=== PATIENT | male | born 1980 | race Caucasian/White ===

== ENCOUNTER 2016-08-05 09:18 | Inpatient (IN) | payer MEDICARE, OTHER ==
[2016-08-05] VITALS (11 sets, daily range): BP systolic 112–175; BP diastolic 55–83; PULSE 75–88; RESP 18–19; TEMP 98.4; Ht 180.3 cm; Wt 98.0 kg
[~2016-08-05] VITALS: Ht 180.3 cm; Wt 98.0 kg
[~2016-08-05 09:18] MED LIST: ASPI-664 PO; CARV25TA79 PO; ICNCLON PO; LACT1CAP57 PO; LANT3I SC; LORA1TAB PO; MULT-552 PO; NIFE60TA36 PO; NOV SC; SERT50TA PO; SEVE800T7 PO; SMV40T PO
[2016-08-05] MEDS ORDERED: ONDANSETRON 4 MG INJ IV STA (09:54)
[2016-08-05] MEDS ORDERED: morphine 4 MG/ML VIAL IV STA ×2 (09:54→12:20)
--- NOTE | 2016-08-05 10:15 | RADRPT ---
PROCEDURE: XR Chest. CLINICAL INDICATION: Abdominal Pain TECHNIQUE: Single frontal view of the chest was obtained. COMPARISON: Chest x-ray from 04/12/2015 FINDINGS: There is mild cardiomegaly and low lung volumes with prominence of interstitial markings, likely due to a combination of mild congestive changes and vascular crowding. There are patchy opacities at the left lung base laterally which may be due to subsegmental atelecta sis versus infiltrate. There is no significant pleural effusion or pneumothorax. IMPRESSION: Patchy opacity of the left lung base due to subsegmental atelectasis versus infiltrate. Mild cardiomegaly and low lung volumes with prominence of interstitial markings, likely due to mild congestive changes and vascular crowding. RPTAT: EE Physician Leah Date Time Electronically viewed and signed by Physician Leah on 08/05/2016 10:15 RA/
--- NOTE | 2016-08-05 10:39 | RADRPT ---
PROCEDURE: US Abdomen. CLINICAL INDICATION: abdominal pain TECHNIQUE: Multiple real-time images were acquired of the patient's right upper quadrant abdomen a nd retroperitoneum utilizing a high resolution transducer. COMPARISON: None FINDINGS: The liver demonstrates normal echogenicity. The liver is normal in size and no focal solid lesions are seen. The liver measures 16.1 cm in length. The portal vein is patent with normal direction of f low. No intrahepatic biliary dilatation is seen. Multiple small calcified gallstones are identified within the gallbladder. There is no pericholecys tic fluid . There is evidence of gallbladder wall thickening, measuring 8 mm. The common bile duct measures 7 mm in maximal dimension. The pancreas is not seen due to overlying bowel gas. No free fluid is identified. There is increased echogenicity of the right kidney with cortical thinning. The right kidney measur es 10.7 cm in long dimension. There is no evidence of hydronephrosis. There are no kidney stones. RPTAT: AA IMPRESSION: Multiple calcified stones within the gallbladder with evidence of gallbladder wall thickening. No e vidence of pericholecystic fluid. Atrophic right kidney. Pancreas not seen due to overlying bowel gas. .Louis Oliveira MD, Date Time Electronically viewed and signed by .Louis Oliveira MD, on 08/05/2016 10:38 .S/
[2016-08-05 10:52] LABS: ADD SCAN DIFF NO
[2016-08-05 10:57] LABS: BASOPHILS % 0.1 % (0.0-2.0); EOSINOPHILS # 0.1 10^3/ul (0.0-0.5); EOSINOPHILS % 0.6 % (0.0-7.0); HEMATOCRIT 34.8 % (42.0-52.0); HEMOGLOBIN 11.7 g/dl (14.0-18.0); LYMPHOCYTES # 1.2 10^3/ul (0.8-2.9); LYMPHOCYTES % 9.2 % (15.0-51.0); MEAN CORPUSCULAR HEMOGLOBIN 31.6 pg (29.0-33.0); MEAN CORPUSCULAR HGB CONC 33.6 g/dl (32.0-37.0); MEAN CORPUSCULAR VOLUME 94.1 fl (82.0-101.0); MEAN PLATELET VOLUME 10.7 fl (7.4-10.4); MONOCYTE # 1.3 10^3/ul (0.3-0.9); NEUTROPHIL # 10.2 10^3/ul (1.6-7.5); NEUTROPHILS % 79.6 % (39.0-77.0); PLATELET COUNT 193 10^3/UL (140-415); RED CELL DISTRIBUTION WIDTH 17.6 % (11.5-14.5); WHITE BLOOD COUNT 12.8 10^3/ul (4.8-10.8)
[2016-08-05] MEDS ORDERED: LORA-444 PO (10:58)
[2016-08-05] MEDS ORDERED: OMEP20CA16 PO (10:58)
[2016-08-05] MEDS ORDERED: NIFE60TA36 PO (10:59)
[2016-08-05 11:05] LABS: ALBUMIN 4.2 g/dl (3.3-4.9)
[2016-08-05 11:06] LABS: POTASSIUM 5.1 mmol/L (3.5-5.1)
[2016-08-05 11:08] LABS: ALBUMIN/GLOBULIN RATIO 0.84; BILIRUBIN,INDIRECT 0.2 mg/dl (0-1.1); BILIRUBIN,TOTAL 0.2 mg/dl (0.2-1.3); CREATININE 10.52 mg/dl (0.61-1.24); TOTAL PROTEIN 9.2 g/dl (6.1-8.1)
--- NOTE | 2016-08-05 12:31 | ERA ---
ER Documentation Chief Complaint Date/Time DATE: 08/05/16 TIME: 12:26 Chief Complaint AP SINCE FRIDAY, DUE FOR DIALISIS TODAY HPI 35-year-old male with a history of hypertension, diabetes and ESRD on hemodialysis presenting with right upper quadrant and epigastric pain since this morning. The pain is constant, radiates across the upper abdomen, 8 out of 10, aching. No alleviating or exacerbating factors. He does endorse nausea without vomiting. No diarrhea, fevers, chills. He denies cough or shortness of breath. ROS All systems reviewed and are negative except as per history of present illness. Medications Home Meds Reported Medications Nifedipine* (Adalat CC*) 60 Mg Tablet.sa, 60 MG PO BID, #60 TAB.SA 08/05/16 Omeprazole* (Omeprazole*) 20 Mg Capsule.dr, 20 MG PO DAILY, #30 CAP 08/05/16 Lorazepam* (Ativan*) 2 Mg Tablet, 2 MG PO DAILY Y for ANXIETY, #30 TAB 08/05/16 Sevelamer Carbonate* (Renvela*) 800 Mg Tablet, 3200 MG PO WITH MEALS, TAB 09/25/14 Discontinued Reported Medications Multivitamins* (Once Daily*) 1 Tab Tablet, 1 TAB PO DAILY, TAB 01/23/15 Lactobacillus Rhamnosus* (Culturelle*) 1 Each Cap.sprink, 1 CAP PO DAILY, CAP 01/23/15 Nifedipine* (Adalat CC*) 60 Mg Tablet.sa, 60 MG PO DAILY, TAB.SA 01/23/15 Simvastatin (Simvastatin) 40 Mg Tablet, 40 MG PO HS, TAB 09/25/14 Sertraline Hcl* (Zoloft*) 50 Mg Tablet, 150 MG PO DAILY, TAB 09/25/14 Lorazepam* (Lorazepam*) 1 Mg Tablet, 1 MG PO BID Y for ANXIETY, TAB 09/25/14 Insulin Glargine* (Lantus*) 100 Unit/Ml Soln, 5 UNIT SC HS, EA 09/25/14 Insulin Aspart* (Novolog Insulin Vial*) 100 U/Ml Vial, 0 SC SLIDING SCALE AC, VIAL 09/25/14 Carvedilol* (Carvedilol*) 25 Mg Tablet, 25 MG PO BID, TAB 09/25/14 Aspirin (Low Dose Aspirin) 81 Mg Tablet.dr, 81 MG PO DAILY 09/25/14 Discontinued Scripts Clonidine (Clonidine (Pediatric Compound)) 0.1 Mg/Ml Susp, 0.02 MG PO BID for 30 Days, BOTTLE Prov:NANCY RUIZ DO 05/25/15 Allergies Allergies: Coded Allergies: sulfamethoxazole (Verified Allergy, Unknown, SWELLING, 08/05/16) trimethoprim (Verified Allergy, Unknown, SWELLING, 08/05/16) PMhx/Soc History of Surgery: Yes (2xfistuals, left BKA, 2x eye surgery) Anesthesia Reaction: No Hx Neurological Disorder: No Hx Respiratory Disorders: Yes (past h/o pneumonia) Hx Cardiac Disorders: Yes (pulmonary HTN, hyperlipidemia) Hx Psychiatric Problems: No Hx Miscellaneous Medical Probl: Yes (dialysis pt [facility]., OSTEOMYLITIS ) Hx Alcohol Use: No Hx Substance Use: No Hx Tobacco Use: No Smoking Status: Current some day smoker FmHx Family History: No diabetes Physical Exam Vitals Vital Signs Date Time Temp Pulse Resp B/P Pulse Ox O2 Delivery O2 Flow Rate FiO2 08/05/16 13:00 98.4 83 18 178/89 98 Room Air 08/05/16 09:21 98.1 88 18 180/79 99 Physical Exam Const: Well-appearing, nontoxic, no distress Head: Atraumatic Eyes: Normal Conjunctiva ENT: Normal External Ears, Nose and Mouth. Neck: Full range of motion..~ No meningismus. Resp: Clear to auscultation bilaterally Cardio: Regular rate and rhythm, no murmurs Abd: Soft, tender to palpation epigastrium and right upper quadrant, positive Edmond's sign, non distended. Normal bowel sounds Skin: No petechiae, multiple excoriations on the upper extremities. Back: No midline or flank tenderness Ext: No cyanosis, or edema. Left BKA Neur: Awake and alert Psych: Normal Mood and Affect Result Diagram: 08/05/16 1046 08/05/16 1046 Results 24 hrs Laboratory Tests Test 08/05/16 10:46 White Blood Count 12.810^3/ul Red Blood Count 3.7010^6/ul Hemoglobin 11.7g/dl Hematocrit 34.8% Mean Corpuscular Volume 94.1fl Mean Corpuscular Hemoglobin 31.6pg Mean Corpuscular Hemoglobin Concent 33.6g/dl Red Cell Distribution Width 17.6% Platelet Count 91252^3/UL Mean Platelet Volume 10.7fl Neutrophils % 79.6% Lymphocytes % 9.2% Monocytes % 10.0% Eosinophils % 0.6% Basophils % 0.1% Nucleated Red Blood Cells % 0.0/100WBC Neutrophils # 10.210^3/ul Lymphocytes # 1.210^3/ul Monocytes # 1.310^3/ul Eosinophils # 0.110^3/ul Basophils # 0.010^3/ul Nucleated Red Blood Cells # 0.010^3/ul Sodium Level 133mmol/L Potassium Level 5.1mmol/L Chloride Level 88mmol/L Carbon Dioxide Level 24mmol/L Anion Gap 26 Blood Urea Nitrogen 67mg/dl Creatinine 10.52mg/dl Glucose Level 165mg/dl Calcium Level 8.0mg/dl Total Bilirubin 0.2mg/dl Direct Bilirubin 0.00mg/dl Indirect Bilirubin 0.2mg/dl Aspartate Amino Transf (AST/SGOT) 22IU/L Alanine Aminotransferase (ALT/SGPT) 19IU/L Alkaline Phosphatase 139IU/L Total Protein 9.2g/dl Albumin 4.2g/dl Globulin 5.00g/dl Albumin/Globulin Ratio 0.84 Lipase 64U/L Current Medications Medications (Trade) Dose Ordered Sig/Raul Route PRN Reason Start Time Stop Time Status Last Admin Dose Admin Morphine Sulfate (morphine) 4 mg ONCE STAT IV 08/05/16 09:54 08/05/16 09:55 DC 08/05/16 10:37 Ondansetron HCl (Zofran Inj) 4 mg ONCE STAT IV 08/05/16 09:54 08/05/16 09:55 DC 08/05/16 10:36 Morphine Sulfate (morphine) 4 mg ONCE STAT IV 08/05/16 12:20 08/05/16 12:21 DC 08/05/16 12:51 Ondansetron HCl (Zofran Inj) 4 mg BRIDGE ORDER PRN IV NAUSEA AND/OR VOMITING 08/05/16 13:00 08/06/16 12:59 Acetaminophen (Tylenol Tab) 650 mg ER BRIDGE PRN PO MILD PAIN/FEVER 08/05/16 13:00 08/06/16 12:59 Procedures/MDM EMERGENT LABS AND DIAGNOSTIC STUDIES: Lab Results above were reviewed and interpreted by me. CBC shows mild leukocytosis CMP is within normal limits other than mild elevation in alkaline phosphatase, lipase normal Radiology Results as interpreted by Radiology below were reviewed by Jackie Hansen MD: Chest x-ray: IMPRESSION: Patchy opacity of the left lung base due to subsegmental atelectasis versus infiltrate. Mild cardiomegaly and low lung volumes with prominence of interstitial markings , likely due to mild congestive changes and vascular crowding. RPTAT: EE Physician Leah Date Time Electronically viewed and signed by Rafy Aparicio Physician on 08/05/2016 10:15 Ultrasound right upper quadrant: IMPRESSION: Multiple calcified stones within the gallbladder with evidence of gallbladder wall thickening. No evidence of pericholecystic fluid. Atrophic right kidney. Pancreas not seen due to overlying bowel gas. .Louis Oliveira MD, Date Time Electronically viewed and signed by .Louis Oliveira MD, on 08/05/2016 10: 38 Initial Nursing notes reviewed. Previous Medical Records requested via the Electronic Health Record. EMERGENCY DEPARTMENT COURSE / MEDICAL DECISION MAKING: Patient is presenting with upper abdominal pain. He is afebrile with stable vitals.Differential includes but is not limited to biliary colic, biliary obstruction, acute cholecystitis, pancreatitis, hepatitis, lower lobe pneumonia , gastritis, colitis, cardiac pathology, aortic dissection, ureterolithiasis, pyelonephritis. Labs were ordered to evaluate for above and were notable for mild leukocytosis. Chest Xray ordered to evaluate for pneumonia and shows no specific infiltrate. Ultrasound of the abdomen ordered to evaluate gallbladder and showed gallbladder wall thickening. I suspect the patient may have acute cholecystitis. Less likely choledocholithiasis. Morphine was given for pain with mild improvement. Patient will be admitted for surgical consult, IV fluids , and pain control. Accepting Care Team: Current data and ongoing care discussed. Time: Time of admission Primary Provider: Salvador Consulting: Arcadio Outstanding Data: none Departure Diagnosis: Primary Impression: Acute cholecystitis Condition: Fair KAILEY HANSEN MD Aug 05, 2016 12:30
[2016-08-05] MEDS ORDERED: ONDANSETRON 4 MG INJ IV PRN ×2 (13:00→13:30)
[2016-08-05] MEDS ORDERED: ACETAMINOPHEN 325 MG TAB PO PRN ×2 (13:00→13:30)
[2016-08-05 13:27] LABS: INR 1.27; PT RATIO 1.3
[2016-08-05 13:28] LABS: PARTIAL THROMBOPLASTIN TIME 34.7 Sec (25.0-35.0)
[2016-08-05] MEDS ORDERED: VANCOMYCIN 1 GM (PMX) 250 ML IVPB SCH (13:30)
[2016-08-05] MEDS ORDERED: METOCLOPRAMIDE 10 MG INJ IV PRN (13:30)
[2016-08-05] MEDS ORDERED: ONDANSETRON 4 MG TAB PO PRN (13:30)
[2016-08-05] MEDS ORDERED: NACL 0.9% 3 ML SYG IV SCH (13:30)
[2016-08-05] MEDS: HEPARIN 5,000 UNIT/0.5 ML VIAL SC SCH ×2 (14:00→22:00)
--- NOTE | 2016-08-05 14:10 | HP ---
DATE OF ADMISSION: 08/05/2016 REASON FOR ADMISSION: Acute cholecystitis. HISTORY OF PRESENT ILLNESS: This is a 35-year-old gentleman with known end-stage renal disease due to diabetic nephropathy, who has been maintained on outpatient hemodialysis every Friday, Friday, and Friday for several years. His recent course has been complicated by recurrent access problems and most recently had an access placed in his right upper extremity that was complicated by severe right upper extremity edema due t o a central venous stenosis. Ultimately the right upper extremity AV fistula was ligated, a fistula was placed in the left upper extremity through which he is currently getting successful dialysis, and he has been getting intrave nous vancomycin on a weekly basis for recent MRSA infection of the right upper extremity wound. He otherwise was in his usual state of health going to his dialysis 3 times a week when this weekend noted intermittent worsening right upper quadrant pain, unassociated with any nausea, vomiting or t actile fevers. As the pain worsened, he presented to the ER today with those complaints. He was afebrile. Blood pressure was 180/80. Examination noted some tenderness in the epigastrium an d right upper quadrant with a Edmond's sign. Subsequent right upper quadrant ultrasound was done which revealed multiple calcified gallstones wit hin the gallbladder, together with some evidence of gallbladder wall thickening, but no pericholecys tic fluid. He does have a mild leukocytosis and therefore is to be admitted for definitive treatment. He denies any chest pain, shortness of breath, syncope, presyncope, or any palpitations. PAST MEDICAL HISTORY: Please see full dictated problem list. ALLERGIES: TO SULFA. HABITS: Tobacco: None. Alcohol: None. CURRENT MEDICATIONS: Include: 1. Nifedipine 60 mg b.i.d. 2. Omeprazole 40 mg a day. 3. Renvela 4 to 5 tabs t.i.d. with meals. 4. Nephro-Rafael 1 a day. 5. Ativan 1 to 2 mg p.r.n. His diabetes is currently diet controlled. REVIEW OF SYSTEMS: As per HPI. PHYSICAL EXAMINATION: GENERAL: Awake and alert gentleman currently in no acute distress. VITAL SIGNS: He is afebrile, blood pressure 180/80, heart rate 72 and regular, respirations are 12 and unlabored. SKIN: Scattered ecchymoses. He does have some shallow ulcers in the right upper extremity without any purulence or discharge. HEAD: Normocephalic, atraumatic. EYES: No evidence of any conjunctivitis. PHARYNX: No lesions. NECK: JVP is not distended. BACK: No CVAT. LUNGS: Clear. HEART: S1, S2, regular rate and rhythm. ABDOMEN: Soft, normoactive bowel sounds. He is slightly tender to deep palpation in the right uppe r quadrant. There is no rebound or guarding. EXTREMITIES: He is status post a left BKA, has a functioning left upper extremity AV fistula. LABORATORY DATA: Sodium 133, potassium 5.1, chloride 88, bicarbonate 24, BUN 67, creatinine 10.52, glucose 165, calcium is 8, total bilirubin 0.2, AST 22, ALT 19, alkaline phosphatase 139, total prot ein 9.2, albumin is 4.2. Lipase is 64. White count 12.8, hemoglobin 11.7, hematocrit is 34.8, plat elet count is 193 ultrasound is as noted. Chest x-ray shows cardiomegaly with some prominent interstitial markings. PROBLEM LIST: 1. Right upper quadrant pain with noted gallstones and thickened gallbladder consistent with acute cholecystitis. 2. End-stage renal disease due to diabetic nephropathy. 3. Mild fluid overload. 4. Hypertension. 5. Diabetes mellitus, currently diet controlled. 6. Peripheral vascular disease, status post left BKA. 7. Recurrent graft thromboses now with a functioning left upper extremity AV graft, status post rec ent ligation of right upper extremity arteriovenous graft. RECOMMENDATIONS: 1. Admit to hospital. 2. Panculture 3. Antibiotics. 4. N.p.o. 5. Surgical consultation with Dr. Ervin. Dictated By: BRENDEN VALE MD, MM/NTS Conf#: [id number] DID#: [id number]
--- NOTE | 2016-08-05 15:27 | RADRPT ---
Echocardiogram Report Patient Name: TONAI ZHONG Gender: Male Date: 1980 Study Date: 05-Aug-2016 Global Program Manager: [facility] Location: 410 Ref. Physician: BRENDEN VALE Quality: Adequate Procedures: Transthoracic echocardiogram with complete 2D, M-Mode, and doppler examination. Indications: Congestive Heart Failure. 2D/M Mode Doppler Measurement Value Normal Ranges Measurement Value Normal Ranges LVIDd 2D 5.5 3.5 - 5.6 cm AV Peak Kofi 1.4 m/sec LVIDs 2D 4.1 2.1 - 4.1 cm AV Peak PG 7.8 mmHg LVPWd 2D 1.2 0.6 - 1.1 cm LVOT Peak Kofi 0.7 m/sec IVSd 2D 1.3 0.6 - 1.1 cm LVOT Peak PG 2.0 mmHg AoR Diam 2D 2.7 2.0 - 3.7 cm TR Peak Kofi 2.4 m/sec EDV 2D 147.2 cm3 TR Peak PG 23.8 mmHg ESV 2D 69.3 cm3 Findings Left Ventricle: Normal left ventricular cavity size. Mild concentric left ventricular hypertrophy. Moderate global left ventricular systolic dysfunction. Ejection fraction is visually estimated at 35 %. Abnormal Diastolic Function. Right Ventricle: Normal right ventricular systolic function. Mild enlargement of right ventricle. Left Atrium: The left atrium is normal in size. Right Atrium: The right atrium is normal in size. RA Pressure=8. Mitral Valve: Mild mitral leaflet calcification. Trace mitral regurgitation. Aortic Valve: Normal appearance of the aortic valve. Tricuspid Valve: Tricuspid valve not well visualized. Estimated peak PA systolic pressure 32 mmHg. There is mild tricuspid regurgitation. Pulmonic Valve: There is trace pulmonic regurgitation. Pericardium: Normal pericardium with no significant pericardial effusion. Aorta: Normal aortic root. IVC: Dilated IVC with respiratory collapse consistent with elevated right atrial pressure. Conclusions 1.Normal left ventricular cavity size. Mild concentric left ventricular hypertrophy. Moderate global left ventricular systolic dysfunction. Ejection fraction is visually estimated at 35 %. Abnormal Diastolic Function. 2.Mild mitral leaflet calcification. Trace mitral regurgitation. 3.Normal appearance of the aortic valve. 4.Tricuspid valve not well visualized. Estimated peak PA systolic pressure 32 mmHg. There is mild tricuspid regurgitation. 5.There is trace pulmonic regurgitation. 6.Normal pericardium with no significant pericardial effusion. Electronically Signed By: Minda Moody 05-Aug-2016 15:26:37 -0700 Patient Name: TONIA ZHONG Study Date: 05-Aug-2016 [id number]
[2016-08-05] MEDS: PIPER-TAZO 2.25 GM (PMX) 50 ML IVPB SCH ×2 (16:39→23:14)
[2016-08-05] MEDS: INSULIN ASPART [NOVOLOG] 3 ML PEN SC SCH ×2 (17:00→20:44)
[2016-08-05] MEDS: SEVELAMER CARBONATE 0.8 GM PKT PO SCH (17:55)
[2016-08-05] MEDS: morphine 2 MG INJ IV PRN (20:40)
[2016-08-05] MEDS: NIFEdipine (XL) 60 MG TAB PO SCH (20:44)
[2016-08-06] MEDS: INSULIN ASPART [NOVOLOG] 3 ML PEN SC SCH ×6 (00:12→20:52)
--- NOTE | 2016-08-06 00:34 | RADRPT ---
PROCEDURE: MRCP. CLINICAL INDICATION: Dilated common bile duct, abdominal pain. TECHNIQUE: MRCP was performed on the a high-resolution, high Shalonda field strength scanner. Patien t was examined without contrast. 3-D coronal rotating MIP images of the biliary tree are available for review. COMPARISON: Right upper quadrant abdominal ultrasound of 08/05/2016 FINDINGS: There is cholelithiasis. There is dilatation of the gallbladder with maximum length approximate 9.3 cm and maximal transverse dimension approximate 5.9 cm consistent with gallbladder hydrops. Mild dif fuse gallbladder wall thickening and pericholecystic fluid and soft tissue stranding/fluid in the ad jacent fat. Findings are suggestive of acute cholecystitis. Trace ascites is apparent. The biliary tree is not dilated. No intrahepatic nor extrahepatic biliary dilatation is present. No filling def ect or choledocholithiasis is seen. There is no stricture or obstruction seen in the extrahepatic bi le duct. The pancreatic duct, as visualized, is unremarkable. Atrophic kidneys with multiple small o gail structures demonstrating increased T2 signal suggestive of small cysts. There is the suggestion of diffuse decreased signal in the liver and spleen which could be due to iron deposition. The vert ical length of the spleen equals 16.4 cm consistent with splenomegaly. IMPRESSION: Cholelithiasis. Gallbladder hydrops. Mild diffuse gallbladder wall thickening and pericholecystic fl uid and soft tissue stranding/fluid in the adjacent fat. Findings are suggestive of acute cholecyst itis. Trace ascites. No biliary dilatation seen. Atrophic kidneys. Diffuse increased signal in diane er and spleen which could be due to iron deposition. Splenomegaly. RPTAT: HJES .Aramis Savage MD, MD Date Time Electronically viewed and signed by .Aramis Savage MD, MD on 08/06/2016 00:33 .S/
--- NOTE | 2016-08-06 00:58 | CONS ---
DATE OF ADMISSION: 08/05/2016 DATE OF CONSULTATION: 08/05/2016 TYPE OF CONSULTATION: Surgical. REFERRING PHYSICIAN: Brenden Franco MD CHIEF COMPLAINT: 1. Abdominal pain. 2. Cholecystitis. 3. Cardiomyopathy with systolic ejection fraction of 35%. 4. Diabetes. 5. Hypertension. 6. BMI 30. 7. End-stage renal disease on hemodialysis. 8. Mild leukocytosis. 9. Anemia. 10. Abnormal alkaline phosphatase. 11. Dilated common bile duct at 7 mm. 12. Cholelithiasis. HISTORY OF PRESENT ILLNESS: Mr. Rajendra Valderrama is a 35-year-old male with multiple significant comorbidities who has been having some right upper quadrant sharp pain with some nausea, but no vomi ting, fevers, or chills. Pain does not radiate. He has had this in the past few weeks that he pres ented to [place] and was discharged home. No associated with chest pain or shortness of breath. No cough or seizure. No blood per mouth or rectum. No change in bowel habits. No trauma or sick contacts. In the emergency room, he was found to have mild leukocytosis with the ultrasound finding of gallbla dder wall thickening and common bile duct at 7 mm. He also has gallstones. There is no pericholecy stic fluid. The patient was admitted and surgical consult is obtained for further evaluation and tr eatment. PAST MEDICAL HISTORY: 1. Recent history of central venous stenosis. 2. Recent history of right upper extremity edema. 3. Recurrent complications of access site. 4. BMI 30. 5. Cholelithiasis. 6. Mild cholecystitis. 7. Common bile duct at 7 mm. 8. Diabetes mellitus. 9. Hypertension. 10. End-stage renal disease on hemodialysis. 11. Fluid overload. 12. Peripheral vascular disease. 13. Hyponatremia. 14. Elevated alkaline phosphatase. 15. Anemia. 16. Mild leukocytosis. 17. Upper extremity wounds. 18. Cardiomyopathy with ejection fraction of 35%. PAST SURGICAL HISTORY: 1. Left upper extremity AV fistula. 2. Right upper extremity AV graft with multiple procedures and final ligation. 3. Left BKA. 4. Eye surgeries x2. FAMILY HISTORY: Mother with metabolic disease, hypertension, and cardiac disorders. Father with ca rdiac disorder and hypertension. SOCIAL HISTORY: Smokes, but denies alcohol or recreational drugs. REVIEW OF SYSTEMS: A 12-point systems negative unless addressed in HPI. PHYSICAL EXAMINATION: VITAL SIGNS: Temperature is 98.5, pulse 70s to 90s, blood pressure 115/64, saturating 98%. GENERAL: No acute distress, obese, pleasant. HEENT: No scleral icterus. Mucous membranes are somewhat dry. NECK: Minimal JVD. No crepitus. Trachea midline. PULMONARY: Normal respiratory effort. No wheezing. CARDIAC: S1, S2 present. ABDOMEN: Soft, minimally tender in right upper quadrant without rebound, guarding, Edmond's, or rig idity. EXTREMITIES: Left BKA. No edema. VASCULAR: Cap refill less than 3 seconds. NEUROLOGIC: Alert, oriented, moves extremities grossly. LABORATORY AND RADIOGRAPHIC: As per chart and HPI. ASSESSMENT AND PLAN: Rajendra Valderrama is a 35-year-old male with multiple significant comorbiditi es. 1. Abdominal pain with mild leukocytosis and ultrasound findings are suggestive of mild symptomatic cholelithiasis and cholecystitis. Continue antibiotics and supportive care. I had a long discussi on with patient regarding surgical options. I first will obtain an MRCP due to the dilated common b ile duct. The patient is at least at moderate to high risk and will defer to primary and cardiac te am to evaluate the risk category and to recommend. Will discuss further options with the patient an d the team. 2. BMI 30. Encouraged nutritional optimization and exercise as tolerated. 3. Diabetes type 2. Continue the nutrition and medication control and encourage weight optimizatio n. 4. Hypertension. Continue nutrition and medication control and encourage weight optimization. 5. Anemia without evidence of acute blood loss. Monitor. 6. End-stage renal disease on hemodialysis. 7. Cardiomyopathy with ejection fraction of 35%. We will defer to cardiology for further cardiac o ptimization. 8. Electrolyte abnormalities with hyponatremia and hypocalcemia. Please correct and replete as nee ded. Thank you very much for consulting me in this patient's care. Dictated By: ADOLFO SHERMAN MD SK/NTS Conf#: [id number] DID#: [id number] CC: BRENDEN FRANCO MD;*EndCC*
[2016-08-06] MEDS: morphine 2 MG INJ IV PRN ×3 (01:06→17:37)
[2016-08-06 04:49] LABS: ADD SCAN DIFF NO
[2016-08-06 05:32] LABS: THYROID STIMULATING HORMONE 1.83 MIU/L (0.465-4.680)
[2016-08-06 05:38] LABS: INR 1.3; PARTIAL THROMBOPLASTIN TIME 35.3 Sec (25.0-35.0); PROTIME 16.3 Sec (12.2-14.2); PT RATIO 1.3
[2016-08-06 05:42] LABS: ALBUMIN 3.7 g/dl (3.3-4.9); ALBUMIN/GLOBULIN RATIO 0.84; BILIRUBIN,INDIRECT 0.2 mg/dl (0-1.1); BILIRUBIN,TOTAL 0.2 mg/dl (0.2-1.3); CALCIUM 7.8 mg/dl (8.4-10.2); CREATININE 8.11 mg/dl (0.61-1.24); MAGNESIUM 2.1 mg/dl (1.7-2.5); PHOSPHORUS 8.4 mg/dl (2.5-4.9); POTASSIUM 4.7 mmol/L (3.5-5.1); TOTAL PROTEIN 8.1 g/dl (6.1-8.1)
[2016-08-06] MEDS: PANTOPRAZOLE 40 MG INJ IV SCH (05:45)
[2016-08-06] MEDS: PIPER-TAZO 2.25 GM (PMX) 50 ML IVPB SCH ×3 (05:45→21:37)
[2016-08-06] MEDS: HEPARIN 5,000 UNIT/0.5 ML VIAL SC SCH ×3 (06:00→21:37)
[2016-08-06] MEDS: SEVELAMER CARBONATE 0.8 GM PKT PO SCH ×3 (07:50→17:35)
[2016-08-06 07:54] VITALS: BP 141/78
[2016-08-06 07:59] VITALS: RESP 12
[2016-08-06] MEDS: NIFEdipine (XL) 60 MG TAB PO SCH ×2 (08:19→20:50)
--- NOTE | 2016-08-06 08:57 | PN ---
Date/Time of Note Date/Time of Note DATE: 08/06/16 TIME: 08:53 Assessment/Plan VTE Prophylaxis VTE Prophylaxis Intervention: heparin Lines/Catheters IV Catheter Type (from Nrsg): Saline Lock Assessment/Plan Problems: (1) Cardiomyopathy Comment: EF 35%... will ask Dr Moody to see (2) Essential hypertension Status: Acute Comment: better control w UF (3) End stage renal disease on dialysis Status: Acute Comment: for HD in am (4) Acute cholecystitis Status: Acute Comment: (+) MRCP for GB thickening with alaina- fluid... no CBD dilatation, tho... will need juanis...will discuss w dr Ervin the timing, as well as ?lap vs open Subjective 24 Hr Interval Summary Free Text/Dictation feels better.. less abd pain... did discuss (+) MRCP w him... he will need operation Exam/Review of Systems Vital Signs Vitals Vital Signs Date Time Temp Pulse Resp B/P Pulse Ox O2 Delivery O2 Flow Rate FiO2 08/06/16 07:59 12 89 08/06/16 07:54 98.2 85 08/05/16 14:38 Room Air Intake and Output 08/05/16 08/05/16 08/06/16 15:00 23:00 07:00 Intake Total 500 ml 700 ml Output Total 3500 ml 0 ml Balance -3000 ml 700 ml Exam Constitutional: alert, oriented, well developed Respiratory: clear to auscultation Cardiovascular: regular rate and rhythm Gastrointestinal: soft, tender (less in RUQ.. no jeanne or guard) Results Result Diagram: 08/05/16 1046 08/06/16 0418 Results 24 hrs Laboratory Tests Test 08/05/16 10:46 08/05/16 13:00 08/05/16 20:39 08/06/16 04:18 White Blood Count 12.8 #H Red Blood Count 3.70 L Hemoglobin 11.7 #L Hematocrit 34.8 L Mean Corpuscular Volume 94.1 Mean Corpuscular Hemoglobin 31.6 Mean Corpuscular Hemoglobin Concent 33.6 Red Cell Distribution Width 17.6 H Platelet Count 193 Mean Platelet Volume 10.7 H Neutrophils % 79.6 H Lymphocytes % 9.2 L Monocytes % 10.0 Eosinophils % 0.6 Basophils % 0.1 Nucleated Red Blood Cells % 0.0 Neutrophils # 10.2 H Lymphocytes # 1.2 Monocytes # 1.3 H Eosinophils # 0.1 Basophils # 0.0 Nucleated Red Blood Cells # 0.0 Sodium Level 133 L 134 L Potassium Level 5.1 4.7 Chloride Level 88 L 93 L Carbon Dioxide Level 24 28 Anion Gap 26 H 18 #H Blood Urea Nitrogen 67 H 45 #H Creatinine 10.52 H 8.11 #H Glucose Level 165 109 # Calcium Level 8.0 L 7.8 L Total Bilirubin 0.2 0.2 Direct Bilirubin 0.00 0.00 Indirect Bilirubin 0.2 0.2 Aspartate Amino Transf (AST/SGOT) 22 15 Alanine Aminotransferase (ALT/SGPT) 19 21 Alkaline Phosphatase 139 H 124 H Total Protein 9.2 H 8.1 Albumin 4.2 3.7 Globulin 5.00 H 4.40 H Albumin/Globulin Ratio 0.84 0.84 Lipase 64 Prothrombin Time 16.0 H 16.3 H Prothrombin Time Ratio 1.3 1.3 INR International Normalized Ratio 1.27 1.30 Activated Partial Thromboplast Time 34.7 35.3 H Bedside Glucose 110 Phosphorus Level 8.4 H Magnesium Level 2.1 Thyroid Stimulating Hormone (TSH) 1.830 Medications Medications Current Medications Nifedipine (Procardia Xl) 60 mg BID PO Last administered on 08/06/16 08:19; Admin Dose 60 MG; Start 08/05/16 at 21:00 Ondansetron HCl (Zofran Tab) 4 mg Q6H PRN PO NAUSEA AND/OR VOMITING; Start at 13:30 Ondansetron HCl (Zofran Inj) 4 mg Q6H PRN IV NAUSEA AND/OR VOMITING; Start at 13:30 Metoclopramide HCl (Reglan) 10 mg Q6H PRN IV NAUSEA AND/OR VOMITING; Start at 13:30 Acetaminophen (Tylenol Tab) 650 mg Q6H PRN PO PAIN LEVEL 1-3 OR FEVER Last administered on 08/06/16 01:39; Admin Dose 650 MG; Start 08/05/16 at 13:30 Acetaminophen/ Hydrocodone Bitart ([place] (5/325)) 1 tab Q6H PRN PO MODERATE PAIN LEVEL 4-6; Start 08/05/16 at 13:30 Morphine Sulfate (morphine) 2 mg Q4H PRN IV SEVERE PAIN LEVEL 7-10 Last administered on 08/06/16 05:45; Admin Dose 2 MG; Start 08/05/16 at 13:30 Zolpidem Tartrate (Ambien) 5 mg QHS PRN PO SLEEP; Start 08/05/16 at 13:30 Pantoprazole (Protonix Iv) 40 mg DAILY@06 IV Last administered on 08/06/16 05: 45; Admin Dose 40 MG; Start 08/06/16 at 06:00 Heparin Sodium (Porcine) 5000 unit 5,000 unit Q8 SC ; Start 08/05/16 at 14:00 Piperacillin Sod/ Tazobactam Sod (Zosyn 2.25gm/ 50ml (Pmx)) 50 ml @ 100 mls/hr Q8 IVPB Last administered on 08/06/16 05:45; Admin Dose 100 MLS/HR; Start at 14:00 Miscellaneous Information (* Miscellaneous Pharmacy Order) HYPOGLYCEMIA PROTOCOL w... ONCE ONCE XX ; Start 08/06/16 at 09:00; Stop 08/06/16 at 09:01 Miscellaneous Information (* Miscellaneous Pharmacy Order) Discontinue Glyburide , Glipizide,... ONCE ONCE XX ; Start 08/06/16 at 09:00; Stop 08/06/16 at 09:01 Miscellaneous Information (* Miscellaneous Pharmacy Order) Discontinue all previ... ONCE ONCE XX ; Start 08/06/16 at 09:00; Stop 08/06/16 at 09:01 BRENDEN VALE MD Aug 06, 2016 08:57
[2016-08-06] MEDS: ACCU-CHEK XX SCH ×3 (10:19→20:53)
[2016-08-06 11:32] LABS: BASOPHILS % 0.2 % (0.0-2.0); EOSINOPHILS # 0.1 10^3/ul (0.0-0.5); EOSINOPHILS % 0.8 % (0.0-7.0); HEMOGLOBIN 11.1 g/dl (14.0-18.0); LYMPHOCYTES # 1.2 10^3/ul (0.8-2.9); LYMPHOCYTES % 13.9 % (15.0-51.0); MEAN CORPUSCULAR HEMOGLOBIN 31.8 pg (29.0-33.0); MEAN CORPUSCULAR HGB CONC 32.6 g/dl (32.0-37.0); MEAN CORPUSCULAR VOLUME 97.4 fl (82.0-101.0); MEAN PLATELET VOLUME 11.1 fl (7.4-10.4); MONOCYTE # 1.3 10^3/ul (0.3-0.9); MONOCYTES % 15.1 % (0.0-11.0); NEUTROPHILS % 69.5 % (39.0-77.0); PLATELET COUNT 198 10^3/UL (140-415); RED BLOOD COUNT 3.49 10^6/ul (4.70-6.10); RED CELL DISTRIBUTION WIDTH 18.1 % (11.5-14.5); WHITE BLOOD COUNT 8.6 10^3/ul (4.8-10.8)
[2016-08-06] MEDS ORDERED: DEXTROSE 50% 50 ML SYRINGE IV PRN ×2 (12:00)
[2016-08-06] MEDS ORDERED: GLUCOSE GEL 15 GRAM TUBE PO PRN ×2 (12:00)
[2016-08-06] MEDS ORDERED: GLUCAGON 1 MG INJ IM PRN (12:00)
[2016-08-06] MEDS ORDERED: GLUCOSE GEL 15 GRAM TUBE BUCCAL PRN (12:00)
--- NOTE | 2016-08-06 12:41 | PN ---
Date/Time of Note Date/Time of Note DATE: 08/06/16 TIME: 12:36 Assessment/Plan Lines/Catheters [facility] Saline Lock Assessment/Plan Chief Complaint/Hosp Course 1. Abdominal pain with mild leukocytosis and ultrasound findings are suggestive of mild symptomatic cholelithiasis and cholecystitis. MRCP noted. -antibiotics -supportive care -cardiac and medical optimization and clearance 2. BMI 30. Encouraged nutritional optimization and exercise as tolerated. 3. Diabetes type 2. Continue the nutrition and medication control and encourage weight optimization. 4. Hypertension. Continue nutrition and medication control and encourage weight optimization. 5. Anemia without evidence of acute blood loss. Monitor. 6. End-stage renal disease on hemodialysis. 7. Cardiomyopathy with ejection fraction of 35%. We will defer to cardiology for further cardiac optimization. 8. Electrolyte abnormalities with hyponatremia and hypocalcemia. Please correct and replete as needed. Thank you Problems: Subjective 24 Hr Interval Summary Pain improving. No f/c. No n/v. No cp/sob. No glass. No visual or neuro changes. No dysuria. No cough. No bloating. No bleeding. MRCP noted. Exam/Review of Systems Vital Signs Vitals Vital Signs Date Time Temp Pulse Resp B/P Pulse Ox O2 Delivery O2 Flow Rate FiO2 08/06/16 07:59 12 89 08/06/16 07:54 98.2 85 08/05/16 14:38 Room Air Intake and Output 08/05/16 08/05/16 08/06/16 15:00 23:00 07:00 Intake Total 500 ml 700 ml Output Total 3500 ml 0 ml Balance -3000 ml 700 ml Exam Free Text/Dictation GENERAL: No acute distress, obese, pleasant. HEENT: No scleral icterus. Mucous membranes are somewhat dry. NECK: Minimal JVD. No crepitus. Trachea midline. PULMONARY: Normal respiratory effort. No wheezing. CARDIAC: S1, S2 present. ABDOMEN: Soft, minimally tender in right upper quadrant without rebound, guarding, Edmond's, or rigidity. EXTREMITIES: Left BKA. No edema. VASCULAR: Cap refill less than 3 seconds. NEUROLOGIC: Alert, oriented, moves extremities grossly. Results Result Diagram: 08/06/16 0418 08/06/16 0418 ADOLFO SHERMAN MD Aug 06, 2016 12:41
[2016-08-06 20:34] VITALS: BP 106/52; RESP 18
--- NOTE | 2016-08-06 23:09 | CONS ---
Date/Time of Note Date/Time of Note DATE: 08/06/16 TIME: 23:04 Assessment/Plan Assessment/Plan Additional Assessment/Plan (1) Cardiomyopathy (2) Essential hypertensionF (3) End stage renal disease on dialysis (4) Acute cholecystitis _The paitnet with hx of NICM wiht an EF of 35% but no active chf. Will change nifedipine to hydralazine/imdur due to low EF -will add coreg next -NO AICD at htis time necessaray -The paitne twith severe NICM but currently no symptoms and nsr by ekg - as such , HE MAY PROCEED TO CCK WITH MODERATE CARDIAC RISK Consultation Date/Type/Reason Admit Date/Time Aug 05, 2016 at 12:56 Hx of Present Illness Mr. Rajendra Valderrama is a 35-year-old male with multiple significant comorbidities who has been having some right upper quadrant sharp pain with some nausea, but no vomiting, fevers, or chills. Pain does not radiate. He has had this in the past few weeks that he presented to [place] and was discharged home. No associated with chest pain or shortness of breath. No cough or seizure. No blood per mouth or rectum. No change in bowel habits. No trauma or sick contacts.In the emergency room, he was found to have mild leukocytosis with the ultrasound finding of gallbladder wall thickening and common bile duct at 7 mm. He also has gallstones. There is no pericholecystic fluid. The patient was admitted and surgical consult is obtained for further evaluation and treatment. The patient does have a hx of NICM witha low EF in the past and had a life vest for few weeks. His EF improved and no AICD was neccessary. The patient now has evidenc of severe cardiomyopathy but no active chf Social History Smoking Status: Never smoker Exam/Review of Systems Vital Signs Vitals Vital Signs Date Time Temp Pulse Resp B/P Pulse Ox O2 Delivery O2 Flow Rate FiO2 08/06/16 20:34 98.2 84 18 106/52 92 08/05/16 14:38 Room Air Intake and Output 08/05/16 08/05/16 08/06/16 15:00 23:00 07:00 Intake Total 500 ml 700 ml Output Total 3500 ml 0 ml Balance -3000 ml 700 ml Results Result Diagram: 08/06/16 0418 08/06/16 0418 Results 24 hrs Laboratory Tests Test 08/06/16 04:18 White Blood Count 8.6 # Red Blood Count 3.49 L Hemoglobin 11.1 L Hematocrit 34.0 L Mean Corpuscular Volume 97.4 Mean Corpuscular Hemoglobin 31.8 Mean Corpuscular Hemoglobin Concent 32.6 Red Cell Distribution Width 18.1 H Platelet Count 198 Mean Platelet Volume 11.1 H Neutrophils % 69.5 Lymphocytes % 13.9 L Monocytes % 15.1 H Eosinophils % 0.8 Basophils % 0.2 Nucleated Red Blood Cells % 0.0 Neutrophils # 6.0 Lymphocytes # 1.2 Monocytes # 1.3 H Eosinophils # 0.1 Basophils # 0.0 Nucleated Red Blood Cells # 0.0 Prothrombin Time 16.3 H Prothrombin Time Ratio 1.3 INR International Normalized Ratio 1.30 Activated Partial Thromboplast Time 35.3 H Sodium Level 134 L Potassium Level 4.7 Chloride Level 93 L Carbon Dioxide Level 28 Anion Gap 18 #H Blood Urea Nitrogen 45 #H Creatinine 8.11 #H Glucose Level 109 # Hemoglobin A1c 5.5 Calcium Level 7.8 L Phosphorus Level 8.4 H Magnesium Level 2.1 Total Bilirubin 0.2 Direct Bilirubin 0.00 Indirect Bilirubin 0.2 Aspartate Amino Transf (AST/SGOT) 15 Alanine Aminotransferase (ALT/SGPT) 21 Alkaline Phosphatase 124 H Total Protein 8.1 Albumin 3.7 Globulin 4.40 H Albumin/Globulin Ratio 0.84 Thyroid Stimulating Hormone (TSH) 1.830 Medications Medications Current Medications Nifedipine (Procardia Xl) 60 mg BID PO Last administered on 08/06/16 08:19; Admin Dose 60 MG; Start 08/05/16 at 21:00 Ondansetron HCl (Zofran Tab) 4 mg Q6H PRN PO NAUSEA AND/OR VOMITING; Start at 13:30 Ondansetron HCl (Zofran Inj) 4 mg Q6H PRN IV NAUSEA AND/OR VOMITING; Start at 13:30 Metoclopramide HCl (Reglan) 10 mg Q6H PRN IV NAUSEA AND/OR VOMITING; Start at 13:30 Acetaminophen (Tylenol Tab) 650 mg Q6H PRN PO PAIN LEVEL 1-3 OR FEVER Last administered on 08/06/16 01:39; Admin Dose 650 MG; Start 08/05/16 at 13:30 Acetaminophen/ Hydrocodone Bitart ([place] (5/325)) 1 tab Q6H PRN PO MODERATE PAIN LEVEL 4-6; Start 08/05/16 at 13:30 Morphine Sulfate (morphine) 2 mg Q4H PRN IV SEVERE PAIN LEVEL 7-10 Last administered on 08/06/16 17:37; Admin Dose 2 MG; Start 08/05/16 at 13:30 Zolpidem Tartrate (Ambien) 5 mg QHS PRN PO SLEEP; Start 08/05/16 at 13:30 Pantoprazole (Protonix Iv) 40 mg DAILY@06 IV Last administered on 08/06/16 05: 45; Admin Dose 40 MG; Start 08/06/16 at 06:00 Heparin Sodium (Porcine) 5000 unit 5,000 unit Q8 SC ; Start 08/05/16 at 14:00 Piperacillin Sod/ Tazobactam Sod (Zosyn 2.25gm/ 50ml (Pmx)) 50 ml @ 100 mls/hr Q8 IVPB Last administered on 08/06/16 21:37; Admin Dose 100 MLS/HR; Start at 14:00 Miscellaneous Information 1 ea NOTE XX ; Start 08/06/16 at 12:00 Glucose (Glutose) 15 gm Q15M PRN PO DECREASED GLUCOSE; Start 08/06/16 at 12:00 Glucose (Glutose) 22.5 gm Q15M PRN PO DECREASED GLUCOSE; Start 08/06/16 at 12: 00 Dextrose (D50w Syringe) 25 ml Q15M PRN IV DECREASED GLUCOSE; Start 08/06/16 at 12:00 Dextrose (D50w Syringe) 50 ml Q15M PRN IV DECREASED GLUCOSE; Start 08/06/16 at 12:00 Glucagon (Glucagen) 1 mg Q15M PRN IM DECREASED GLUCOSE; Start 08/06/16 at 12:00 Glucose (Glutose) 15 gm Q15M PRN BUCCAL DECREASED GLUCOSE; Start 08/06/16 at 12 :00 LILIYA GONCALVES MD Aug 06, 2016 23:09
[2016-08-07] VITALS (12 sets, daily range): BP systolic 130–194; BP diastolic 66–88; PULSE 87–97; RESP 19
[2016-08-07] MEDS ORDERED: ACCU-CHEK XX SCH (02:00)
[2016-08-07 05:24] LABS: ADD SCAN DIFF NO
[2016-08-07 05:35] LABS: BASOPHILS % 0.3 % (0.0-2.0); EOSINOPHILS # 0.3 10^3/ul (0.0-0.5); HEMATOCRIT 31.8 % (42.0-52.0); HEMOGLOBIN 10.2 g/dl (14.0-18.0); LYMPHOCYTES # 1.2 10^3/ul (0.8-2.9); LYMPHOCYTES % 12.7 % (15.0-51.0); MEAN CORPUSCULAR HEMOGLOBIN 30.7 pg (29.0-33.0); MEAN CORPUSCULAR HGB CONC 32.1 g/dl (32.0-37.0); MEAN CORPUSCULAR VOLUME 95.8 fl (82.0-101.0); MEAN PLATELET VOLUME 10.6 fl (7.4-10.4); MONOCYTE # 1.2 10^3/ul (0.3-0.9); MONOCYTES % 12.9 % (0.0-11.0); NEUTROPHIL # 6.4 10^3/ul (1.6-7.5); NEUTROPHILS % 70.7 % (39.0-77.0); PLATELET COUNT 216 10^3/UL (140-415); RED BLOOD COUNT 3.32 10^6/ul (4.70-6.10); RED CELL DISTRIBUTION WIDTH 17.4 % (11.5-14.5); WHITE BLOOD COUNT 9.1 10^3/ul (4.8-10.8)
[2016-08-07] MEDS: PIPER-TAZO 2.25 GM (PMX) 50 ML IVPB SCH ×3 (05:44→22:00)
[2016-08-07] MEDS: PANTOPRAZOLE 40 MG INJ IV SCH (05:45)
[2016-08-07] MEDS: HEPARIN 5,000 UNIT/0.5 ML VIAL SC SCH ×3 (05:45→22:00)
[2016-08-07 05:50] LABS: INR 1.32; PROTIME 16.5 Sec (12.2-14.2); PT RATIO 1.3
[2016-08-07 05:51] LABS: PARTIAL THROMBOPLASTIN TIME 37.7 Sec (25.0-35.0)
[2016-08-07] MEDS: ACCU-CHEK XX SCH ×4 (07:20→21:00)
[2016-08-07] MEDS: SEVELAMER CARBONATE 0.8 GM PKT PO SCH ×3 (07:24→17:02)
[2016-08-07] MEDS: INSULIN ASPART [NOVOLOG] 3 ML PEN SC SCH ×4 (07:24→21:00)
--- NOTE | 2016-08-07 07:31 | CONS ---
Date/Time of Note Date/Time of Note DATE: 08/07/16 TIME: 07:27 Assessment/Plan Assessment/Plan Problems: (1) Anemia Status: Acute Comment: stable... on EPO Qualifiers: Other causes of anemia: chronic disease, kidney (2) Essential hypertension Status: Acute Comment: good control now w good UF (3) End stage renal disease on dialysis Status: Acute Comment: for HD today... will also do in AM thurs, as surgery for Fri (4) Cardiomyopathy Comment: non ischemic and stable... EF 35%... asx... appreciate Dr Moody f/u (5) Acute cholecystitis Status: Acute Comment: for surgery w Dr Ervin Fri.. less pain, and WBC now nl on the Zosyn Consultation Date/Type/Reason Admit Date/Time Aug 05, 2016 at 12:56 Initial Consult Date Type of Consultation: neph 24 HR Interval Summary Free Text/Dictation better... less abd pain.. has been seen by Dr Moody, and cleared... also seen by Wound care...both appreciated Exam/Review of Systems Vital Signs Vitals Vital Signs Date Time Temp Pulse Resp B/P Pulse Ox O2 Delivery O2 Flow Rate FiO2 08/07/16 00:32 2.0 08/06/16 20:34 98.2 84 18 106/52 92 08/05/16 14:38 Room Air Intake and Output 08/06/16 08/06/16 08/07/16 15:00 23:00 07:00 Intake Total 50 ml 350 ml 50 ml Output Total 0 ml Balance 50 ml 350 ml 50 ml Exam Constitutional: alert, oriented Head: normocephalic Respiratory: clear to auscultation Cardiovascular: regular rate and rhythm Gastrointestinal: tender (much less.. no jeanne or guarding) Extremities: edema (none.. s/p L BKA... access LUE) Results Result Diagram: 08/07/16 0428 08/06/16 0418 Results 24 hrs Laboratory Tests Test 08/07/16 04:28 White Blood Count 9.1 Red Blood Count 3.32 L Hemoglobin 10.2 L Hematocrit 31.8 L Mean Corpuscular Volume 95.8 Mean Corpuscular Hemoglobin 30.7 Mean Corpuscular Hemoglobin Concent 32.1 Red Cell Distribution Width 17.4 H Platelet Count 216 Mean Platelet Volume 10.6 H Neutrophils % 70.7 Lymphocytes % 12.7 L Monocytes % 12.9 H Eosinophils % 3.0 Basophils % 0.3 Nucleated Red Blood Cells % 0.0 Neutrophils # 6.4 Lymphocytes # 1.2 Monocytes # 1.2 H Eosinophils # 0.3 Basophils # 0.0 Nucleated Red Blood Cells # 0.0 Prothrombin Time 16.5 H Prothrombin Time Ratio 1.3 INR International Normalized Ratio 1.32 Activated Partial Thromboplast Time 37.7 H Medications Medications Current Medications Ondansetron HCl (Zofran Tab) 4 mg Q6H PRN PO NAUSEA AND/OR VOMITING; Start at 13:30 Ondansetron HCl (Zofran Inj) 4 mg Q6H PRN IV NAUSEA AND/OR VOMITING; Start at 13:30 Metoclopramide HCl (Reglan) 10 mg Q6H PRN IV NAUSEA AND/OR VOMITING; Start at 13:30 Acetaminophen (Tylenol Tab) 650 mg Q6H PRN PO PAIN LEVEL 1-3 OR FEVER Last administered on 08/06/16 01:39; Admin Dose 650 MG; Start 08/05/16 at 13:30 Acetaminophen/ Hydrocodone Bitart ([place] (5/325)) 1 tab Q6H PRN PO MODERATE PAIN LEVEL 4-6; Start 08/05/16 at 13:30 Morphine Sulfate (morphine) 2 mg Q4H PRN IV SEVERE PAIN LEVEL 7-10 Last administered on 08/06/16 17:37; Admin Dose 2 MG; Start 08/05/16 at 13:30 Zolpidem Tartrate (Ambien) 5 mg QHS PRN PO SLEEP; Start 08/05/16 at 13:30 Pantoprazole (Protonix Iv) 40 mg DAILY@06 IV Last administered on 08/07/16 05: 45; Admin Dose 40 MG; Start 08/06/16 at 06:00 Heparin Sodium (Porcine) 5000 unit 5,000 unit Q8 SC ; Start 08/05/16 at 14:00 Piperacillin Sod/ Tazobactam Sod (Zosyn 2.25gm/ 50ml (Pmx)) 50 ml @ 100 mls/hr Q8 IVPB Last administered on 08/07/16 05:44; Admin Dose 100 MLS/HR; Start at 14:00 Miscellaneous Information 1 ea NOTE XX ; Start 08/06/16 at 12:00 Glucose (Glutose) 15 gm Q15M PRN PO DECREASED GLUCOSE; Start 08/06/16 at 12:00 Glucose (Glutose) 22.5 gm Q15M PRN PO DECREASED GLUCOSE; Start 08/06/16 at 12: 00 Dextrose (D50w Syringe) 25 ml Q15M PRN IV DECREASED GLUCOSE; Start 08/06/16 at 12:00 Dextrose (D50w Syringe) 50 ml Q15M PRN IV DECREASED GLUCOSE; Start 08/06/16 at 12:00 Glucagon (Glucagen) 1 mg Q15M PRN IM DECREASED GLUCOSE; Start 08/06/16 at 12:00 Glucose (Glutose) 15 gm Q15M PRN BUCCAL DECREASED GLUCOSE; Start 08/06/16 at 12 :00 Isosorbide Mononitrate (Imdur) 30 mg DAILY PO ; Start 08/07/16 at 09:00 Hydralazine HCl (Apresoline) 25 mg QID PO ; Start 08/07/16 at 09:00 BRENDEN VALE MD Aug 07, 2016 07:31
[2016-08-07] MEDS: ISOSORBIDE MONONITRATE(SR)30 MG TAB PO SCH (08:23)
--- NOTE | 2016-08-07 09:04 | RADRPT ---
Vent Rate: 84 bpm RR Interval: 0 msec MA Interval: 200 msec QRS Duration: 178 msec QT Interval: 468 msec QTC Interval: 553 msec P-R-T [place]: 52 - -86 - 54 degrees Normal sinus rhythm Biatrial enlargement Left axis deviation Right bundle branch block Left ventricular hypertrophy Abnormal ECG Electronically Signed By: Epifanio Yee [id number]
[2016-08-07] MEDS: morphine 2 MG INJ IV PRN ×2 (09:38→20:28)
--- NOTE | 2016-08-07 13:00 | PN ---
Date/Time of Note Date/Time of Note DATE: 08/07/16 TIME: 12:58 Assessment/Plan Lines/Catheters IV Catheter Type (from [facility]): Saline Lock Lam in Place (from [facility]): No Assessment/Plan Chief Complaint/Hosp Course 1. Abdominal pain with mild leukocytosis and ultrasound findings are suggestive of mild symptomatic cholelithiasis and cholecystitis. MRCP noted. -antibiotics -supportive care -cardiac and medical optimization and clearance appreciated -surgery scheduled for Friday 2. BMI 30. Encouraged nutritional optimization and exercise as tolerated. 3. Diabetes type 2. Continue the nutrition and medication control and encourage weight optimization. 4. Hypertension. Continue nutrition and medication control and encourage weight optimization. 5. Anemia without evidence of acute blood loss. Monitor. 6. End-stage renal disease on hemodialysis. 7. Cardiomyopathy with ejection fraction of 35%. Cardiology follow up. 8. Electrolyte abnormalities with hyponatremia and hypocalcemia. Please correct and replete as needed. Thank you Problems: Subjective 24 Hr Interval Summary Cardiology and Primary inputs & optimizations appreciated. Pain improving. No f/c. No n/v. No cp/sob. No glass. No visual or neuro changes. No dysuria. No cough. No bloating. No bleeding. MRCP noted. Exam/Review of Systems Vital Signs Vitals Vital Signs Date Time Temp Pulse Resp B/P Pulse Ox O2 Delivery O2 Flow Rate FiO2 08/07/16 10:27 97 21 08/07/16 09:39 89 148/66 08/07/16 08:00 98.0 19 08/07/16 00:32 2.0 08/05/16 14:38 Room Air Intake and Output 08/06/16 08/06/16 08/07/16 15:00 23:00 07:00 Intake Total 50 ml 350 ml 50 ml Output Total 0 ml Balance 50 ml 350 ml 50 ml Exam Free Text/Dictation GENERAL: No acute distress, obese, pleasant. HEENT: No scleral icterus. Mucous membranes are somewhat dry. NECK: Minimal JVD. No crepitus. Trachea midline. PULMONARY: Normal respiratory effort. No wheezing. CARDIAC: S1, S2 present. ABDOMEN: Soft, minimally tender in right upper quadrant without rebound, guarding, Edmond's, or rigidity. EXTREMITIES: Left BKA. No edema. VASCULAR: Cap refill less than 3 seconds. NEUROLOGIC: Alert, oriented, moves extremities grossly. Results Result Diagram: 08/07/16 0428 08/06/16 0418 ADOLFO SHERMAN MD Aug 07, 2016 13:00
[2016-08-08 05:25] LABS: INR 1.27; PT RATIO 1.3
[2016-08-08 05:26] LABS: PARTIAL THROMBOPLASTIN TIME 31.5 Sec (25.0-35.0)
[2016-08-08] MEDS: HEPARIN 5,000 UNIT/0.5 ML VIAL SC SCH ×3 (06:00→22:00)
[2016-08-08] MEDS: PANTOPRAZOLE 40 MG INJ IV SCH (06:02)
[2016-08-08] MEDS: PIPER-TAZO 2.25 GM (PMX) 50 ML IVPB SCH ×3 (06:02→22:03)
[2016-08-08] MEDS: ACCU-CHEK XX SCH ×4 (07:20→21:00)
[2016-08-08] MEDS: INSULIN ASPART [NOVOLOG] 3 ML PEN SC SCH ×4 (07:50→21:00)
[2016-08-08] MEDS: SEVELAMER CARBONATE 0.8 GM PKT PO SCH ×3 (07:50→17:36)
[2016-08-08 08:00] VITALS: BP 200/95; PULSE 83; RESP 18
--- NOTE | 2016-08-08 08:40 | CONS ---
Date/Time of Note Date/Time of Note DATE: 08/08/16 TIME: 08:38 Assessment/Plan Assessment/Plan Problems: (1) Anemia Status: Acute Comment: on EPO... stable Qualifiers: Other causes of anemia: chronic disease, kidney (2) Essential hypertension Status: Acute Comment: better control w UF and med changes (3) End stage renal disease on dialysis Status: Acute Comment: HD today, in prep for surgery in am (4) Acute cholecystitis Status: Acute Comment: better on abx...wbc nl... no fever... for surgery per Dr Ervin tomorrow Consultation Date/Type/Reason Admit Date/Time Aug 07, 2016 at 09:20 Type of Consultation: neph 24 HR Interval Summary Free Text/Dictation some cramping w HD yesterday... better now.. no f/c/n/v tho... looks well Exam/Review of Systems Vital Signs Vitals Vital Signs Date Time Temp Pulse Resp B/P Pulse Ox O2 Delivery O2 Flow Rate FiO2 08/07/16 22:05 88 18 08/07/16 17:03 194/87 08/07/16 10:27 97 21 08/07/16 08:00 98.0 08/07/16 00:32 2.0 08/05/16 14:38 Room Air Intake and Output 08/07/16 08/07/16 08/08/16 15:00 23:00 07:00 Intake Total 50 ml 830 ml 450 ml Output Total 4300 ml 4000 ml Balance 50 ml -3470 ml -3550 ml Exam Constitutional: alert, oriented Psych: no complaints Neck: supple Respiratory: clear to auscultation Cardiovascular: regular rate and rhythm Gastrointestinal: soft Extremities: other (fxn avg LUE) Results Result Diagram: 08/07/16 0428 08/06/16 0418 Results 24 hrs Laboratory Tests Test 08/08/16 04:33 Prothrombin Time 16.0 H Prothrombin Time Ratio 1.3 INR International Normalized Ratio 1.27 Activated Partial Thromboplast Time 31.5 Medications Medications Current Medications Ondansetron HCl (Zofran Tab) 4 mg Q6H PRN PO NAUSEA AND/OR VOMITING; Start at 13:30 Ondansetron HCl (Zofran Inj) 4 mg Q6H PRN IV NAUSEA AND/OR VOMITING; Start at 13:30 Metoclopramide HCl (Reglan) 10 mg Q6H PRN IV NAUSEA AND/OR VOMITING; Start at 13:30 Acetaminophen (Tylenol Tab) 650 mg Q6H PRN PO PAIN LEVEL 1-3 OR FEVER Last administered on 08/06/16 01:39; Admin Dose 650 MG; Start 08/05/16 at 13:30 Acetaminophen/ Hydrocodone Bitart ([place] (5/325)) 1 tab Q6H PRN PO MODERATE PAIN LEVEL 4-6; Start 08/05/16 at 13:30 Morphine Sulfate (morphine) 2 mg Q4H PRN IV SEVERE PAIN LEVEL 7-10 Last administered on 08/07/16 20:28; Admin Dose 2 MG; Start 08/05/16 at 13:30 Zolpidem Tartrate (Ambien) 5 mg QHS PRN PO SLEEP; Start 08/05/16 at 13:30 Pantoprazole (Protonix Iv) 40 mg DAILY@06 IV Last administered on 08/08/16 06: 02; Admin Dose 40 MG; Start 08/06/16 at 06:00 Heparin Sodium (Porcine) 5000 unit 5,000 unit Q8 SC ; Start 08/05/16 at 14:00 Piperacillin Sod/ Tazobactam Sod (Zosyn 2.25gm/ 50ml (Pmx)) 50 ml @ 100 mls/hr Q8 IVPB Last administered on 08/08/16 06:02; Admin Dose 100 MLS/HR; Start at 14:00 Miscellaneous Information 1 ea NOTE XX ; Start 08/06/16 at 12:00 Glucose (Glutose) 15 gm Q15M PRN PO DECREASED GLUCOSE; Start 08/06/16 at 12:00 Glucose (Glutose) 22.5 gm Q15M PRN PO DECREASED GLUCOSE; Start 08/06/16 at 12: 00 Dextrose (D50w Syringe) 25 ml Q15M PRN IV DECREASED GLUCOSE; Start 08/06/16 at 12:00 Dextrose (D50w Syringe) 50 ml Q15M PRN IV DECREASED GLUCOSE; Start 08/06/16 at 12:00 Glucagon (Glucagen) 1 mg Q15M PRN IM DECREASED GLUCOSE; Start 08/06/16 at 12:00 Glucose (Glutose) 15 gm Q15M PRN BUCCAL DECREASED GLUCOSE; Start 08/06/16 at 12 :00 Isosorbide Mononitrate (Imdur) 30 mg DAILY PO ; Start 08/07/16 at 09:00 Hydralazine HCl (Apresoline) 25 mg QID PO Last administered on 08/07/16 08:22 ; Admin Dose 25 MG; Start 08/07/16 at 09:00 BRENDEN VALE MD Aug 08, 2016 08:40
[2016-08-08] MEDS: ISOSORBIDE MONONITRATE(SR)30 MG TAB PO SCH (09:00)
[2016-08-08] MEDS: morphine 2 MG INJ IV PRN ×2 (12:14→22:44)
[2016-08-08 12:30] VITALS: BP 173/89; RESP 18
--- NOTE | 2016-08-08 15:38 | CONS ---
Date/Time of Note Date/Time of Note DATE: 08/08/16 TIME: 15:35 Assessment/Plan Assessment/Plan Additional Assessment/Plan Nonischemic cardiomyopathy with ejection fraction 35% Compensated systolic congestive heart failure End-stage renal disease on hemodialysis Peripheral arterial disease Hypertension -Patient unfortunately noncompliant with medications. I did discuss with him given elevated blood pressure. Would continue hydralazine and Isordil. Fluid management via hemodialysis as per our nephrology colleagues. Consultation Date/Type/Reason Admit Date/Time Aug 07, 2016 at 09:20 Initial Consult Date Type of Consultation: cv 24 HR Interval Summary Free Text/Dictation Patient denies chest pain, shortness of breath or palpitations. Complains of feeling tired Exam/Review of Systems Vital Signs Vitals Vital Signs Date Time Temp Pulse Resp B/P Pulse Ox O2 Delivery O2 Flow Rate FiO2 08/08/16 14:48 21 08/08/16 12:30 18 173/89 Room Air 08/08/16 08:00 98.0 83 08/07/16 10:27 97 08/07/16 00:32 2.0 Intake and Output 08/07/16 08/07/16 08/08/16 15:00 23:00 07:00 Intake Total 50 ml 830 ml 450 ml Output Total 4300 ml 4000 ml Balance 50 ml -3470 ml -3550 ml Exam No apparent distress, family at bedside Constitutional: alert, oriented Head: normocephalic Respiratory: other (Coarse breath sounds bilaterally, no wheezing) Cardiovascular: other (S1-S2 heard), regular rate and rhythm Gastrointestinal: bowel sounds, other (Mild discomfort with palpation), soft Extremities: other (Amputation) Results Result Diagram: 08/07/16 0428 08/06/16 0418 Results 24 hrs Laboratory Tests Test 08/08/16 04:33 Prothrombin Time 16.0 H Prothrombin Time Ratio 1.3 INR International Normalized Ratio 1.27 Activated Partial Thromboplast Time 31.5 Medications Medications Current Medications Ondansetron HCl (Zofran Tab) 4 mg Q6H PRN PO NAUSEA AND/OR VOMITING; Start at 13:30 Ondansetron HCl (Zofran Inj) 4 mg Q6H PRN IV NAUSEA AND/OR VOMITING; Start at 13:30 Metoclopramide HCl (Reglan) 10 mg Q6H PRN IV NAUSEA AND/OR VOMITING; Start at 13:30 Acetaminophen (Tylenol Tab) 650 mg Q6H PRN PO PAIN LEVEL 1-3 OR FEVER Last administered on 08/06/16 01:39; Admin Dose 650 MG; Start 08/05/16 at 13:30 Acetaminophen/ Hydrocodone Bitart ([place] (5/325)) 1 tab Q6H PRN PO MODERATE PAIN LEVEL 4-6; Start 08/05/16 at 13:30 Morphine Sulfate (morphine) 2 mg Q4H PRN IV SEVERE PAIN LEVEL 7-10 Last administered on 08/08/16 12:14; Admin Dose 2 MG; Start 08/05/16 at 13:30 Zolpidem Tartrate (Ambien) 5 mg QHS PRN PO SLEEP; Start 08/05/16 at 13:30 Pantoprazole (Protonix Iv) 40 mg DAILY@06 IV Last administered on 08/08/16 06: 02; Admin Dose 40 MG; Start 08/06/16 at 06:00 Heparin Sodium (Porcine) 5000 unit 5,000 unit Q8 SC ; Start 08/05/16 at 14:00 Piperacillin Sod/ Tazobactam Sod (Zosyn 2.25gm/ 50ml (Pmx)) 50 ml @ 100 mls/hr Q8 IVPB Last administered on 08/08/16 14:51; Admin Dose 100 MLS/HR; Start at 14:00 Miscellaneous Information 1 ea NOTE XX ; Start 08/06/16 at 12:00 Glucose (Glutose) 15 gm Q15M PRN PO DECREASED GLUCOSE; Start 08/06/16 at 12:00 Glucose (Glutose) 22.5 gm Q15M PRN PO DECREASED GLUCOSE; Start 08/06/16 at 12: 00 Dextrose (D50w Syringe) 25 ml Q15M PRN IV DECREASED GLUCOSE; Start 08/06/16 at 12:00 Dextrose (D50w Syringe) 50 ml Q15M PRN IV DECREASED GLUCOSE; Start 08/06/16 at 12:00 Glucagon (Glucagen) 1 mg Q15M PRN IM DECREASED GLUCOSE; Start 08/06/16 at 12:00 Glucose (Glutose) 15 gm Q15M PRN BUCCAL DECREASED GLUCOSE; Start 08/06/16 at 12 :00 Isosorbide Mononitrate (Imdur) 30 mg DAILY PO ; Start 08/07/16 at 09:00 Hydralazine HCl (Apresoline) 25 mg QID PO Last administered on 08/07/16t 08:22 ; Admin Dose 25 MG; Start 08/07/16 at 09:00 Benjamin Lal DO Aug 08, 2016 15:37
--- NOTE | 2016-08-08 20:29 | PN ---
Date/Time of Note Date/Time of Note DATE: 08/08/16 TIME: 20:29 Assessment/Plan Lines/Catheters IV Catheter Type (from [facility]): Saline Lock Lam in Place (from [facility]): No Assessment/Plan Chief Complaint/Hosp Course 1. Abdominal pain with mild leukocytosis and ultrasound findings are suggestive of mild symptomatic cholelithiasis and cholecystitis. MRCP noted. -antibiotics -supportive care -cardiac and medical optimization and clearance appreciated -surgery scheduled for Friday 2. BMI 30. Encouraged nutritional optimization and exercise as tolerated. 3. Diabetes type 2. Continue the nutrition and medication control and encourage weight optimization. 4. Hypertension. Continue nutrition and medication control and encourage weight optimization. 5. Anemia without evidence of acute blood loss. Monitor. 6. End-stage renal disease on hemodialysis. 7. Cardiomyopathy with ejection fraction of 35%. Cardiology follow up. 8. Electrolyte abnormalities with hyponatremia and hypocalcemia. Please correct and replete as needed. Thank you Problems: Subjective 24 Hr Interval Summary Pain improving. No f/c. No n/v. No cp/sob. No glass. No visual or neuro changes. No dysuria. No cough. No bloating. No bleeding. Exam/Review of Systems Vital Signs Vitals Vital Signs Date Time Temp Pulse Resp B/P Pulse Ox O2 Delivery O2 Flow Rate FiO2 08/08/16 14:48 21 08/08/16 12:30 18 173/89 Room Air 08/08/16 08:00 98.0 83 08/07/16 10:27 97 08/07/16 00:32 2.0 Intake and Output 08/07/16 08/07/16 08/08/16 15:00 23:00 07:00 Intake Total 50 ml 830 ml 450 ml Output Total 4300 ml 4000 ml Balance 50 ml -3470 ml -3550 ml Exam Free Text/Dictation GENERAL: No acute distress, obese, pleasant. HEENT: No scleral icterus. Mucous membranes are somewhat dry. NECK: Minimal JVD. No crepitus. Trachea midline. PULMONARY: Normal respiratory effort. No wheezing. CARDIAC: S1, S2 present. ABDOMEN: Soft, minimally tender in right upper quadrant without rebound, guarding, Edmond's, or rigidity. EXTREMITIES: Left BKA. No edema. VASCULAR: Cap refill less than 3 seconds. NEUROLOGIC: Alert, oriented, moves extremities grossly. Results Result Diagram: 08/07/16 0428 08/06/16 0418 ADOLFO SHERMAN MD Aug 08, 2016 20:29
[2016-08-08] MEDS: ISOSORBIDE DINITRATE 10 MG TAB PO SCH (20:48)
[2016-08-08 21:18] VITALS: BP 226/100; RESP 20
[2016-08-08 21:40] VITALS: BP 167/74; PULSE 78; RESP 18
[2016-08-09] VITALS (23 sets, daily range): BP systolic 112–184; BP diastolic 56–94; PULSE 85–89; RESP 17–22
[2016-08-09] MEDS: PIPER-TAZO 2.25 GM (PMX) 50 ML IVPB SCH ×3 (05:33→22:48)
[2016-08-09] MEDS: PANTOPRAZOLE 40 MG INJ IV SCH (05:33)
[2016-08-09] MEDS: HEPARIN 5,000 UNIT/0.5 ML VIAL SC SCH ×3 (05:33→21:16)
[2016-08-09 05:54] LABS: INR 1.29; PROTIME 16.2 Sec (12.2-14.2); PT RATIO 1.3
[2016-08-09] MEDS: ACCU-CHEK XX SCH ×4 (07:20→21:00)
[2016-08-09] MEDS: INSULIN ASPART [NOVOLOG] 3 ML PEN SC SCH ×4 (07:50→21:00)
[2016-08-09] MEDS: SEVELAMER CARBONATE 0.8 GM PKT PO SCH ×3 (07:50→17:12)
[2016-08-09] MEDS: ISOSORBIDE DINITRATE 10 MG TAB PO SCH ×3 (09:00→21:00)
[2016-08-09] MEDS ORDERED: LIDOCAINE 1% (STERILE-PAK) 30 ML INJ ONE (09:58)
[2016-08-09] MEDS ORDERED: BUPIVACAINE 0.25%/EPI (SDV) 30 ML INJ ONE (09:59)
[2016-08-09] MEDS ORDERED: BUPIVACAINE 0.5%/EPI (SDV) 30 ML INJ ONE (09:59)
[2016-08-09] MEDS ORDERED: ROCURONIUM 50 MG INJ ONE ×3 (10:10→11:36)
[2016-08-09] MEDS ORDERED: MIDAZOLAM 1 MG/ML 2 ML INJ ONE (10:10)
[2016-08-09] MEDS ORDERED: METOPROLOL 5 MG INJ ONE (10:10)
[2016-08-09] MEDS ORDERED: METOCLOPRAMIDE 10 MG INJ ONE (10:11)
[2016-08-09] MEDS ORDERED: FENTAnyl 50 MCG/ML VIAL ONE ×3 (10:12→12:25)
[2016-08-09] MEDS ORDERED: ETOMIDATE 20 MG INJ ONE ×2 (10:12→10:45)
--- NOTE | 2016-08-09 10:13 | PN ---
Date/Time of Note Date/Time of Note DATE: 08/09/16 TIME: 10:11 Assessment/Plan Lines/Catheters IV Catheter Type (from [facility]): Saline Lock Lam in Place (from [facility]): No Assessment/Plan Chief Complaint/Hosp Course 1. Abdominal pain with mild leukocytosis and ultrasound findings are suggestive of mild symptomatic cholelithiasis and cholecystitis. MRCP noted. -antibiotics -supportive care -cardiac and medical optimization and clearance appreciated -surgery 2. BMI 30. Encouraged nutritional optimization and exercise as tolerated. 3. Diabetes type 2. Continue the nutrition and medication control and encourage weight optimization. 4. Hypertension. Continue nutrition and medication control and encourage weight optimization. 5. Anemia without evidence of acute blood loss. Monitor. 6. End-stage renal disease on hemodialysis. 7. Cardiomyopathy with ejection fraction of 35%. Cardiology follow up. 8. Electrolyte abnormalities with hyponatremia and hypocalcemia. Please correct and replete as needed. 9. Non compliance with medication causing significant HTN -pt has been encouraged highly on daily basis to comply with medical treatments to optimize him for surgery Thank you Problems: Subjective 24 Hr Interval Summary Pain improving but some persists. No f/c. No n/v. No cp/sob. No glass. No visual or neuro changes. No dysuria. No cough. No bloating. No bleeding. Has been non compliant with some of his cardiac medications. Exam/Review of Systems Vital Signs Vitals Vital Signs Date Time Temp Pulse Resp B/P Pulse Ox O2 Delivery O2 Flow Rate FiO2 08/09/16 08:30 89 16 08/09/16 08:09 98.0 155/67 92 08/09/16 04:00 Room Air 08/08/16 14:48 21 08/07/16 00:32 2.0 Intake and Output 08/08/16 08/08/16 08/09/16 15:00 23:00 07:00 Intake Total 650 ml Output Total 0 ml Balance 650 ml Exam Free Text/Dictation GENERAL: No acute distress, obese, pleasant. HEENT: No scleral icterus. Mucous membranes are somewhat dry. NECK: Minimal JVD. No crepitus. Trachea midline. PULMONARY: Normal respiratory effort. No wheezing. CARDIAC: S1, S2 present. ABDOMEN: Soft, minimally tender in right upper quadrant without rebound, guarding, Edmond's, or rigidity. EXTREMITIES: Left BKA. No edema. VASCULAR: Cap refill less than 3 seconds. NEUROLOGIC: Alert, oriented, moves extremities grossly. Results Result Diagram: 08/07/16 0428 08/06/16 0418 ADOLFO SHERMAN MD Aug 09, 2016 10:13
[2016-08-09] MEDS ORDERED: PROPOFOL 20 ML ONE (10:45)
[2016-08-09] MEDS ORDERED: ROPIVACAINE 0.5 % 30 ML VIAL ONE (11:00)
[2016-08-09] MEDS ORDERED: EPHEDrine SULFATE 50 MG/5 ML SYG ONE (11:00)
[2016-08-09] MEDS ORDERED: hydrALAzine 20 MG INJ ONE (11:10)
[2016-08-09] MEDS ORDERED: hydrALAzine 20 MG INJ IV PRN (11:30)
[2016-08-09] MEDS ORDERED: DIPHENHYDRAMINE 50 MG INJ IV PRN (11:30)
[2016-08-09] MEDS ORDERED: HYDROmorphONE (0.2 MG/ML) 10ML SYG IV PRN ×3 (11:30)
[2016-08-09] MEDS ORDERED: ONDANSETRON 4 MG INJ IV PRN (11:30)
[2016-08-09] MEDS ORDERED: METOCLOPRAMIDE 10 MG INJ IV PRN (11:30)
[2016-08-09] MEDS ORDERED: MEPERIDINE 25 MG INJ IV PRN (11:30)
[2016-08-09] MEDS ORDERED: NEOSTIGMINE 3 MG/3 ML SYRINGE ONE (11:36)
[2016-08-09] MEDS ORDERED: GLYCOPYRROLATE 0.4 MG INJ ONE (11:36)
[2016-08-09] MEDS ORDERED: IOHEXOL 300MG/ML 30 ML BTL ONE (11:48)
--- NOTE | 2016-08-09 12:37 | OPR ---
Date/Time of Note Date/Time of Note DATE: 08/09/16 TIME: 12:37 Operative Report Procedure Date: Aug 09, 2016 Procedure Description Preoperative Diagnosis: Acute cholecystitis Symptomatic cholelithiasis End-stage renal disease Diabetes mellitus Hypertension Cardiomyopathy Noncompliant BMI 30 Postoperative Diagnosis: Acute significant cholecystitis with gangrenous areas Symptomatic cholelithiasis End-stage renal disease Diabetes mellitus Hypertension Cardiomyopathy Noncompliant BMI 30 Operation(s) Performed: 1. 3 port laparoscopic cholecystectomy 2. Laparoscopic liver wedge resection biopsy 3. Attempted intraoperative cholangiogram 4. Local [place], [id number] 5. Difficult operation, modifier 22 Surgeon: ADOLFO SHERMAN MD Anesthesia: general, local, & regional Anesthesiologist: THANH VAZQUEZ MD Estimated Blood Loss: 150 ml's Specimens: Liver Gallbladder Tubes/Drains: 19 F Jaxson Complications: None Pt Condition Post Procedure: stable Disposition: PACU Indications: 69-year-old male with significant comorbidities and gallstones, cholecystitis and abdominal pain here for cholecystectomy. Risks include but are not limited to bleeding, infection, abscess, seroma, damage to intestines, damage to the liver, damage to biliary tree, hernia formation, chronic pain, biloma, need for reoperations or further surgeries, IL , stroke, PE, DVT, pneumonia, organ failures, or even . He is moderate to higher risk category. Procedure Description: Patient was brought and placed supine on the operating table SCDs were placed, preoperative antibiotics were administered, all pressure points were well-padded , and after induction of anesthesia patient was prepped and draped in usual sterile fashion and timeout was performed. Incision was made in the supraumbilical region, Veress was safely inserted, and after a negative SIP test , abdomen was insufflated to 15mmHg. Veress was removed and 5mm port was safely inserted. Laparoscopy was performed with a 5 mm 30 scope. No injuries were identified. The liver looks somewhat abnormal color. Gallbladder is with significant evidence of infection and distended. 12 mm port is placed in subxiphoid under direct visualization followed by another 5 mm port in the right upper quadrant. All port sites were injected with quarter percent Marcaine with epi and 1% lidocaine prior to any incisions. Patient was placed in reverse Trendelenburg and right side up on gallbladder was retracted superolaterally after the gallbladder was drained with electrocautery and suction. There was small gallstones within.. The gallbladder was large and distended. Using electrocautery and blunt dissection I was able to eventually identify the cystic artery and cystic duct after significant meticulous dissection. To be able to identify these I had to approach to surgery with a top down method. The duct tapered into the gallbladder. Full critical angle view was identified. Artery was transected with Endo ADRY white load 35 mm stapler. Upon attempt at stapling the cystic duct the gallbladder ripped off this structure easily. The duct was then secured with oh loop PDS followed by clips 2. The gallbladder was taken off the liver with electrocautery. Hemostasis was obtained. Gallbladder was placed in an Endo Catch bag and removed through the subxiphoid port site which had to be enlarged to allow extraction. There was complete hemostasis. Due to the abnormality of the liver decision was made to perform liver wedge resection which was done with electrocautery and scissor with complete hemostasis right after. The specimen was sent to pathology for further evaluation. 19F jaxson drain was placed through lateral incision to drain the liver and gb sites. 12 mm made port site fascia was closed with Endo Close of an 0 Vicryl in a [id number] manner. Ports and CO2 were removed under direct visualization. Next complete hemostasis. Wounds were thoroughly irrigated skin was closed with skin nadia. Dressing was applied. Patient was extubated and transferred to recovery room in stable condition and all counts were correct and the end of the operation 2. ADOLFO SHERMAN MD Aug 09, 2016 12:37
--- NOTE | 2016-08-09 13:49 | CONS ---
Date/Time of Note Date/Time of Note DATE: 08/09/16 TIME: 13:43 Assessment/Plan Assessment/Plan Problems: (1) Depression Comment: worsened w his need for surgery... has had lots of illness during his young life...he does get depressed at times... this is one of them...gave him emotional support (2) Diabetes Comment: diet controlled...doing fine (3) Essential hypertension Status: Acute Comment: not controlled due to his med noncompliance...chronic..reviewed (4) End stage renal disease on dialysis Status: Acute Comment: is on HD q MWF.. did have HD early this am preop op (5) Acute cholecystitis Status: Acute Comment: is now s/p Lap Olamide by Dr Ervin... looks well.. is hemodyn stable Consultation Date/Type/Reason Admit Date/Time Aug 07, 2016 at 09:20 Type of Consultation: neph 24 HR Interval Summary Free Text/Dictation seen post op here in the RR... A&O... min pain... s/p Lap Olamide... he is upset about all of his illnesses... says at times wants to just give up and stop... discussed w him Exam/Review of Systems Vital Signs Vitals Vital Signs Date Time Temp Pulse Resp B/P Pulse Ox O2 Delivery O2 Flow Rate FiO2 08/09/16 12:57 99.0 08/09/16 08:30 89 16 08/09/16 08:09 155/67 92 08/09/16 04:00 Room Air 08/08/16 14:48 21 08/07/16 00:32 2.0 Intake and Output 08/08/16 08/08/16 08/09/16 15:00 23:00 07:00 Intake Total 650 ml Output Total 0 ml Balance 650 ml Exam Constitutional: alert, oriented Neck: supple Respiratory: clear to auscultation Cardiovascular: regular rate and rhythm Gastrointestinal: bowel sounds ((+)... has a DANN drain RLQ) Extremities: other (s/p L BKA... fxn AVF LUE) Results Result Diagram: 08/07/16 0428 08/09/16 1000 Results 24 hrs Laboratory Tests Test 08/09/16 04:30 08/09/16 07:39 08/09/16 10:00 Prothrombin Time 16.2 H Prothrombin Time Ratio 1.3 INR International Normalized Ratio 1.29 Activated Partial Thromboplast Time 32.0 Bedside Glucose 112 Potassium Level 4.1 Medications Medications Current Medications Ondansetron HCl (Zofran Tab) 4 mg Q6H PRN PO NAUSEA AND/OR VOMITING; Start at 13:30 Ondansetron HCl (Zofran Inj) 4 mg Q6H PRN IV NAUSEA AND/OR VOMITING; Start at 13:30 Metoclopramide HCl (Reglan) 10 mg Q6H PRN IV NAUSEA AND/OR VOMITING; Start at 13:30 Acetaminophen (Tylenol Tab) 650 mg Q6H PRN PO PAIN LEVEL 1-3 OR FEVER Last administered on 08/06/16 01:39; Admin Dose 650 MG; Start 08/05/16 at 13:30 Acetaminophen/ Hydrocodone Bitart ([place] (5/325)) 1 tab Q6H PRN PO MODERATE PAIN LEVEL 4-6; Start 08/05/16 at 13:30 Morphine Sulfate (morphine) 2 mg Q4H PRN IV SEVERE PAIN LEVEL 7-10 Last administered on 08/08/16 22:44; Admin Dose 2 MG; Start 08/05/16 at 13:30 Zolpidem Tartrate (Ambien) 5 mg QHS PRN PO SLEEP; Start 08/05/16 at 13:30 Pantoprazole (Protonix Iv) 40 mg DAILY@06 IV Last administered on 08/09/16 05: 33; Admin Dose 40 MG; Start 08/06/16 at 06:00 Heparin Sodium (Porcine) 5000 unit 5,000 unit Q8 SC ; Start 08/05/16 at 14:00 Piperacillin Sod/ Tazobactam Sod (Zosyn 2.25gm/ 50ml (Pmx)) 50 ml @ 100 mls/hr Q8 IVPB Last administered on 08/09/16 05:33; Admin Dose 100 MLS/HR; Start at 14:00 Miscellaneous Information 1 ea NOTE XX ; Start 08/06/16 at 12:00 Glucose (Glutose) 15 gm Q15M PRN PO DECREASED GLUCOSE; Start 08/06/16 at 12:00 Glucose (Glutose) 22.5 gm Q15M PRN PO DECREASED GLUCOSE; Start 08/06/16 at 12: 00 Dextrose (D50w Syringe) 25 ml Q15M PRN IV DECREASED GLUCOSE; Start 08/06/16 at 12:00 Dextrose (D50w Syringe) 50 ml Q15M PRN IV DECREASED GLUCOSE; Start 08/06/16 at 12:00 Glucagon (Glucagen) 1 mg Q15M PRN IM DECREASED GLUCOSE; Start 08/06/16 at 12:00 Glucose (Glutose) 15 gm Q15M PRN BUCCAL DECREASED GLUCOSE; Start 08/06/16 at 12 :00 Hydralazine HCl (Apresoline) 25 mg TID PO Last administered on 08/09/16 04:47 ; Admin Dose 25 MG; Start 08/08/16 at 21:00 Isosorbide Dinitrate (Isordil) 10 mg TID PO Last administered on 08/08/16 20: 48; Admin Dose 10 MG; Start 08/08/16 at 21:00 BRENDEN VALE MD Aug 09, 2016 13:49
--- NOTE | 2016-08-09 14:43 | RADRPT ---
PROCEDURE: XR Abdomen. CLINICAL INDICATION: LAP CHOLECYSTOMY, INTRA-OP CHOLANGIOGRAM TECHNIQUE: AP abdomen x-ray. COMPARISON: None. FINDINGS: See impression. IMPRESSION: Intraoperative cholangiogram demonstrates opacification of the gallbladder. The common bile duct an d intrahepatic bile ducts are not visualized. Perihepatic pneumoperitoneum is noted consistent with laparoscopic procedure. RPTAT: EE Physician Leah Date Time Electronically viewed and signed by Physician Leah on 08/09/2016 14:42 RA/
[2016-08-09] MEDS: DEXTROSE 5%-0.9% NACL 1,000 ML IV SCH ×2 (19:30→20:00)
[2016-08-09] MEDS: morphine 2 MG INJ IV PRN (22:52)
--- NOTE | 2016-08-10 02:06 | RADRPT ---
PROCEDURE: MRCP. CLINICAL INDICATION: Status post laparoscopic cholecystectomy. TECHNIQUE: MRCP was performed on a high field MRI scanner. Patient was examined without IV contra st. 3-D coronal rotating MIP images of the biliary tree are available for review. COMPARISON: 08/05/2016 FINDINGS: Study limited by significant patient motion. There has been interval cholecystectomy. There is mil d perihepatic and upper abdominal free fluid and extraluminal gas compatible with recent laparoscopi c surgery. There is small amount of fluid within the gallbladder fossa without a discrete collectio n. The intrahepatic ducts are relatively small. The common bile duct is not adequately visualized. Common bile duct appears relatively small. The pancreatic head is indistinct. Pain. Body and ta il are grossly unremarkable. There is no evidence for bowel obstruction. 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 There is no aortic aneurysm. IMPRESSION: Very limited study. No definite intra or extrahepatic biliary ductal dilatation. An intraductal ga llstone cannot be excluded although there is no definite ductal dilatation to suggest obstruction. Status post cholecystectomy with postoperative fluid and mild free gas. Pancreatic head poorly pio acterized. Pancreatitis cannot be excluded although there is significant motion artifact. Horsesho e kidney with multiple small renal cortical cysts. RPTAT: HMVK .Benjamin Irizarry MD, Date Time Electronically viewed and signed by .Benjamin Irizarry MD, on 08/10/2016 02:06 .K/
[2016-08-10] MEDS: morphine 2 MG INJ IV PRN ×5 (04:01→21:13)
[2016-08-10 05:00] VITALS: BP 153/66; PULSE 84; RESP 20
[2016-08-10] MEDS: PIPER-TAZO 2.25 GM (PMX) 50 ML IVPB SCH ×3 (05:25→22:12)
[2016-08-10] MEDS: PANTOPRAZOLE 40 MG INJ IV SCH (05:26)
[2016-08-10 05:33] LABS: ADD SCAN DIFF NO
[2016-08-10 05:48] LABS: BASOPHILS % 0.3 % (0.0-2.0); EOSINOPHILS # 0.1 10^3/ul (0.0-0.5); EOSINOPHILS % 1.8 % (0.0-7.0); HEMATOCRIT 30.7 % (42.0-52.0); LYMPHOCYTES # 1.2 10^3/ul (0.8-2.9); MEAN CORPUSCULAR HEMOGLOBIN 31.1 pg (29.0-33.0); MEAN CORPUSCULAR HGB CONC 32.6 g/dl (32.0-37.0); MEAN CORPUSCULAR VOLUME 95.3 fl (82.0-101.0); MEAN PLATELET VOLUME 10.3 fl (7.4-10.4); MONOCYTE # 0.9 10^3/ul (0.3-0.9); MONOCYTES % 12.1 % (0.0-11.0); NEUTROPHIL # 5.1 10^3/ul (1.6-7.5); NEUTROPHILS % 69.4 % (39.0-77.0); PLATELET COUNT 276 10^3/UL (140-415); RED BLOOD COUNT 3.22 10^6/ul (4.70-6.10); RED CELL DISTRIBUTION WIDTH 17.4 % (11.5-14.5); WHITE BLOOD COUNT 7.3 10^3/ul (4.8-10.8)
[2016-08-10] MEDS: HEPARIN 5,000 UNIT/0.5 ML VIAL SC SCH ×3 (06:00→22:00)
[2016-08-10 06:01] LABS: INR 1.38; PT RATIO 1.3
[2016-08-10 06:06] LABS: PARTIAL THROMBOPLASTIN TIME 33.2 Sec (25.0-35.0)
[2016-08-10 06:22] LABS: ALBUMIN 3.5 g/dl (3.3-4.9); ALBUMIN/GLOBULIN RATIO 0.79; CALCIUM 8.2 mg/dl (8.4-10.2); CREATININE 9.62 mg/dl (0.61-1.24); POTASSIUM 4.4 mmol/L (3.5-5.1); TOTAL PROTEIN 7.9 g/dl (6.1-8.1)
[2016-08-10] MEDS: ACCU-CHEK XX SCH ×4 (07:20→21:00)
[2016-08-10 07:44] VITALS: BP 128/61; RESP 17
[2016-08-10] MEDS: INSULIN ASPART [NOVOLOG] 3 ML PEN SC SCH ×4 (07:50→21:00)
[2016-08-10] MEDS: SEVELAMER CARBONATE 0.8 GM PKT PO SCH ×3 (07:50→17:27)
[2016-08-10] MEDS: ISOSORBIDE DINITRATE 10 MG TAB PO SCH ×4 (08:45→21:00)
--- NOTE | 2016-08-10 10:31 | PN ---
Date/Time of Note Date/Time of Note DATE: 08/10/16 TIME: 10:30 Assessment/Plan VTE Prophylaxis VTE Prophylaxis Intervention: SCD's Lines/Catheters IV Catheter Type (from [facility]): Peripheral IV Urinary Cath still in place: No Assessment/Plan Chief Complaint/Hosp Course Mr. Rajendra Valderrama is a 35-year-old male with multiple significant comorbidities who has been having some right upper quadrant sharp pain with some nausea, but no vomiting, fevers, or chills. Pain does not radiate. He has had this in the past few weeks that he presented to [place] and was discharged home. No associated with chest pain or shortness of breath. No cough or seizure. No blood per mouth or rectum. No change in bowel habits. No trauma or sick contacts.In the emergency room, he was found to have mild leukocytosis with the ultrasound finding of gallbladder wall thickening and common bile duct at 7 mm. He also has gallstones. There is no pericholecystic fluid. The patient was admitted and surgical consult is obtained for further evaluation and treatment. The patient does have a hx of NICM witha low EF in the past and had a life vest for few weeks. His EF improved and no AICD was neccessary. The patient now has evidenc of severe cardiomyopathy but no active chf Problems: Assessment/Plan Nonischemic cardiomyopathy with ejection fraction 35% Compensated systolic congestive heart failure End-stage renal disease on hemodialysis Peripheral arterial disease Hypertension -Patient unfortunately noncompliant with medications. I did discuss with him given elevated blood pressure. Would continue hydralazine and Isordil. Fluid management via hemodialysis as per our nephrology colleagues Continue surgical care Subjective 24 Hr Interval Summary Free Text/Dictation The patient doing well post CCK Exam/Review of Systems Vital Signs Vitals Vital Signs Date Time Temp Pulse Resp B/P Pulse Ox O2 Delivery O2 Flow Rate FiO2 08/10/16 07:44 98.4 87 17 128/61 100 08/10/16 05:00 Nasal Cannula 2.0 08/08/16 14:48 21 Intake and Output 08/09/16 08/09/16 08/10/16 15:00 23:00 07:00 Intake Total 700 ml 820 ml Output Total 3150 ml 80 ml 40 ml Balance -2450 ml -80 ml 780 ml Results Result Diagram: 08/10/16 0455 08/10/16 0455 Results 24 hrs Laboratory Tests Test 08/10/16 04:55 White Blood Count 7.3 Red Blood Count 3.22 L Hemoglobin 10.0 L Hematocrit 30.7 L Mean Corpuscular Volume 95.3 Mean Corpuscular Hemoglobin 31.1 Mean Corpuscular Hemoglobin Concent 32.6 Red Cell Distribution Width 17.4 H Platelet Count 276 # Mean Platelet Volume 10.3 Neutrophils % 69.4 Lymphocytes % 16.0 Monocytes % 12.1 H Eosinophils % 1.8 Basophils % 0.3 Nucleated Red Blood Cells % 0.0 Neutrophils # 5.1 Lymphocytes # 1.2 Monocytes # 0.9 Eosinophils # 0.1 Basophils # 0.0 Nucleated Red Blood Cells # 0.0 Prothrombin Time 17.0 H Prothrombin Time Ratio 1.3 INR International Normalized Ratio 1.38 Activated Partial Thromboplast Time 33.2 Sodium Level 139 Potassium Level 4.4 Chloride Level 97 Carbon Dioxide Level 25 Anion Gap 21 H Blood Urea Nitrogen 38 H Creatinine 9.62 H Glucose Level 108 Calcium Level 8.2 L Total Bilirubin 0.0 L Direct Bilirubin 0.00 Indirect Bilirubin 0.0 Aspartate Amino Transf (AST/SGOT) 25 Alanine Aminotransferase (ALT/SGPT) 20 Alkaline Phosphatase 104 Total Protein 7.9 Albumin 3.5 Globulin 4.40 H Albumin/Globulin Ratio 0.79 Medications Medications Current Medications Ondansetron HCl (Zofran Tab) 4 mg Q6H PRN PO NAUSEA AND/OR VOMITING; Start at 13:30 Ondansetron HCl (Zofran Inj) 4 mg Q6H PRN IV NAUSEA AND/OR VOMITING; Start at 13:30 Metoclopramide HCl (Reglan) 10 mg Q6H PRN IV NAUSEA AND/OR VOMITING; Start at 13:30 Acetaminophen (Tylenol Tab) 650 mg Q6H PRN PO PAIN LEVEL 1-3 OR FEVER Last administered on 08/06/16 01:39; Admin Dose 650 MG; Start 08/05/16 at 13:30 Acetaminophen/ Hydrocodone Bitart ([place] (5/325)) 1 tab Q6H PRN PO MODERATE PAIN LEVEL 4-6; Start 08/05/16 at 13:30 Morphine Sulfate (morphine) 2 mg Q4H PRN IV SEVERE PAIN LEVEL 7-10 Last administered on 08/10/16 08:13; Admin Dose 2 MG; Start 08/05/16 at 13:30 Zolpidem Tartrate (Ambien) 5 mg QHS PRN PO SLEEP; Start 08/05/16 at 13:30 Pantoprazole (Protonix Iv) 40 mg DAILY@06 IV Last administered on 08/10/16 05: 26; Admin Dose 40 MG; Start 08/06/16 at 06:00 Heparin Sodium (Porcine) 5000 unit 5,000 unit Q8 SC ; Start 08/05/16 at 14:00 Piperacillin Sod/ Tazobactam Sod (Zosyn 2.25gm/ 50ml (Pmx)) 50 ml @ 100 mls/hr Q8 IVPB Last administered on 08/10/16 05:25; Admin Dose 100 MLS/HR; Start at 14:00 Miscellaneous Information 1 ea NOTE XX ; Start 08/06/16 at 12:00 Glucose (Glutose) 15 gm Q15M PRN PO DECREASED GLUCOSE; Start 08/06/16 at 12:00 Glucose (Glutose) 22.5 gm Q15M PRN PO DECREASED GLUCOSE; Start 08/06/16 at 12: 00 Dextrose (D50w Syringe) 25 ml Q15M PRN IV DECREASED GLUCOSE; Start 08/06/16 at 12:00 Dextrose (D50w Syringe) 50 ml Q15M PRN IV DECREASED GLUCOSE; Start 08/06/16 at 12:00 Glucagon (Glucagen) 1 mg Q15M PRN IM DECREASED GLUCOSE; Start 08/06/16 at 12:00 Glucose (Glutose) 15 gm Q15M PRN BUCCAL DECREASED GLUCOSE; Start 08/06/16 at 12 :00 Hydralazine HCl (Apresoline) 25 mg TID PO Last administered on 08/09/16 04:47 ; Admin Dose 25 MG; Start 08/08/16 at 21:00 Isosorbide Dinitrate 10 mg 10 mg TID PO Last administered on 08/08/16 20:48; Admin Dose 10 MG; Start 08/08/16 at 21:00 Dextrose/Sodium Chloride (D5-NS) 1,000 ml @ 60 mls/hr [id number] IV Last administered on 08/09/16 19:30; Admin Dose 60 MLS/HR; Start 08/09/16 at 19:00 LILIYA GONCALVES MD Aug 10, 2016 10:31
--- NOTE | 2016-08-10 14:14 | CONS ---
Date/Time of Note Date/Time of Note DATE: 08/10/16 TIME: 14:10 Assessment/Plan Assessment/Plan Chief Complaint/Hosp Course 1. s/p Laparoscopic cholecystectomy. To start clear liquids now per surgery 2. ESRD - s/p HD yesterday, next planned for tomorrow Problems: Consultation Date/Type/Reason Admit Date/Time Aug 07, 2016 at 09:20 Initial Consult Date Type of Consultation: neph 24 HR Interval Summary Free Text/Dictation The patient is alert sitting up in bed, mild abdominal pain. Exam/Review of Systems Vital Signs Vitals Vital Signs Date Time Temp Pulse Resp B/P Pulse Ox O2 Delivery O2 Flow Rate FiO2 08/10/16 07:44 98.4 87 17 128/61 100 08/10/16 05:00 Nasal Cannula 2.0 08/08/16 14:48 21 Intake and Output 08/09/16 08/09/16 08/10/16 15:00 23:00 07:00 Intake Total 700 ml 820 ml Output Total 3150 ml 80 ml 40 ml Balance -2450 ml -80 ml 780 ml Exam Constitutional: alert Head: atraumatic, normocephalic Neck: No jvd Respiratory: clear to auscultation Cardiovascular: regular rate and rhythm Gastrointestinal: distended, non-tender Extremities: No edema Results Result Diagram: 08/10/16 0455 08/10/16 0455 Results 24 hrs Laboratory Tests Test 08/10/16 04:55 White Blood Count 7.3 Red Blood Count 3.22 L Hemoglobin 10.0 L Hematocrit 30.7 L Mean Corpuscular Volume 95.3 Mean Corpuscular Hemoglobin 31.1 Mean Corpuscular Hemoglobin Concent 32.6 Red Cell Distribution Width 17.4 H Platelet Count 276 # Mean Platelet Volume 10.3 Neutrophils % 69.4 Lymphocytes % 16.0 Monocytes % 12.1 H Eosinophils % 1.8 Basophils % 0.3 Nucleated Red Blood Cells % 0.0 Neutrophils # 5.1 Lymphocytes # 1.2 Monocytes # 0.9 Eosinophils # 0.1 Basophils # 0.0 Nucleated Red Blood Cells # 0.0 Prothrombin Time 17.0 H Prothrombin Time Ratio 1.3 INR International Normalized Ratio 1.38 Activated Partial Thromboplast Time 33.2 Sodium Level 139 Potassium Level 4.4 Chloride Level 97 Carbon Dioxide Level 25 Anion Gap 21 H Blood Urea Nitrogen 38 H Creatinine 9.62 H Glucose Level 108 Calcium Level 8.2 L Total Bilirubin 0.0 L Direct Bilirubin 0.00 Indirect Bilirubin 0.0 Aspartate Amino Transf (AST/SGOT) 25 Alanine Aminotransferase (ALT/SGPT) 20 Alkaline Phosphatase 104 Total Protein 7.9 Albumin 3.5 Globulin 4.40 H Albumin/Globulin Ratio 0.79 Medications Medications Current Medications Ondansetron HCl (Zofran Tab) 4 mg Q6H PRN PO NAUSEA AND/OR VOMITING; Start at 13:30 Ondansetron HCl (Zofran Inj) 4 mg Q6H PRN IV NAUSEA AND/OR VOMITING; Start at 13:30 Metoclopramide HCl (Reglan) 10 mg Q6H PRN IV NAUSEA AND/OR VOMITING; Start at 13:30 Acetaminophen (Tylenol Tab) 650 mg Q6H PRN PO PAIN LEVEL 1-3 OR FEVER Last administered on 08/06/16 01:39; Admin Dose 650 MG; Start 08/05/16 at 13:30 Acetaminophen/ Hydrocodone Bitart ([place] (5/325)) 1 tab Q6H PRN PO MODERATE PAIN LEVEL 4-6; Start 08/05/16 at 13:30 Morphine Sulfate (morphine) 2 mg Q4H PRN IV SEVERE PAIN LEVEL 7-10 Last administered on 08/10/16 13:48; Admin Dose 2 MG; Start 08/05/16 at 13:30 Zolpidem Tartrate (Ambien) 5 mg QHS PRN PO SLEEP; Start 08/05/16 at 13:30 Pantoprazole (Protonix Iv) 40 mg DAILY@06 IV Last administered on 08/10/16 05: 26; Admin Dose 40 MG; Start 08/06/16 at 06:00 Heparin Sodium (Porcine) 5000 unit 5,000 unit Q8 SC ; Start 08/05/16 at 14:00 Piperacillin Sod/ Tazobactam Sod (Zosyn 2.25gm/ 50ml (Pmx)) 50 ml @ 100 mls/hr Q8 IVPB Last administered on 08/10/16 13:51; Admin Dose 100 MLS/HR; Start at 14:00 Miscellaneous Information 1 ea NOTE XX ; Start 08/06/16 at 12:00 Glucose (Glutose) 15 gm Q15M PRN PO DECREASED GLUCOSE; Start 08/06/16 at 12:00 Glucose (Glutose) 22.5 gm Q15M PRN PO DECREASED GLUCOSE; Start 08/06/16 at 12: 00 Dextrose (D50w Syringe) 25 ml Q15M PRN IV DECREASED GLUCOSE; Start 08/06/16 at 12:00 Dextrose (D50w Syringe) 50 ml Q15M PRN IV DECREASED GLUCOSE; Start 08/06/16 at 12:00 Glucagon (Glucagen) 1 mg Q15M PRN IM DECREASED GLUCOSE; Start 08/06/16 at 12:00 Glucose (Glutose) 15 gm Q15M PRN BUCCAL DECREASED GLUCOSE; Start 08/06/16 at 12 :00 Hydralazine HCl (Apresoline) 25 mg TID PO Last administered on 08/10/16 13:51 ; Admin Dose 25 MG; Start 08/08/16 at 21:00 Isosorbide Dinitrate 10 mg 10 mg TID PO Last administered on 08/10/16 13:50; Admin Dose 10 MG; Start 08/08/16 at 21:00 Dextrose/Sodium Chloride (D5-NS) 1,000 ml @ 60 mls/hr [id number] IV Last administered on 08/09/16 19:30; Admin Dose 60 MLS/HR; Start 08/09/16 at 19:00 ULISES ALMEIDA MD Aug 10, 2016 14:14
[2016-08-10] MEDS: HYDROCODONE/APAP (5/325) TAB PO PRN (17:33)
[2016-08-10 19:52] VITALS: BP 136/81; RESP 18
[2016-08-11] VITALS (8 sets, daily range): BP systolic 128–193; BP diastolic 75–94; PULSE 70–86; RESP 16
[2016-08-11] MEDS: morphine 2 MG INJ IV PRN ×4 (04:34→22:20)
[2016-08-11] MEDS: PANTOPRAZOLE 40 MG INJ IV SCH (05:38)
[2016-08-11] MEDS: PIPER-TAZO 2.25 GM (PMX) 50 ML IVPB SCH ×3 (05:38→22:20)
[2016-08-11 05:54] LABS: ADD SCAN DIFF NO
[2016-08-11 05:58] LABS: BASOPHILS % 0.7 % (0.0-2.0); EOSINOPHILS # 0.3 10^3/ul (0.0-0.5); EOSINOPHILS % 5.3 % (0.0-7.0); HEMATOCRIT 29.3 % (42.0-52.0); HEMOGLOBIN 9.5 g/dl (14.0-18.0); LYMPHOCYTES # 1.4 10^3/ul (0.8-2.9); LYMPHOCYTES % 23.6 % (15.0-51.0); MEAN CORPUSCULAR HEMOGLOBIN 31.3 pg (29.0-33.0); MEAN CORPUSCULAR HGB CONC 32.4 g/dl (32.0-37.0); MEAN CORPUSCULAR VOLUME 96.4 fl (82.0-101.0); MEAN PLATELET VOLUME 10.3 fl (7.4-10.4); MONOCYTE # 0.7 10^3/ul (0.3-0.9); MONOCYTES % 11.6 % (0.0-11.0); NEUTROPHIL # 3.5 10^3/ul (1.6-7.5); NEUTROPHILS % 58.3 % (39.0-77.0); PLATELET COUNT 272 10^3/UL (140-415); RED BLOOD COUNT 3.04 10^6/ul (4.70-6.10); RED CELL DISTRIBUTION WIDTH 17.3 % (11.5-14.5); WHITE BLOOD COUNT 6.1 10^3/ul (4.8-10.8)
[2016-08-11] MEDS: HEPARIN 5,000 UNIT/0.5 ML VIAL SC SCH ×3 (06:00→22:00)
[2016-08-11 07:13] LABS: ALBUMIN 3.1 g/dl (3.3-4.9); POTASSIUM 4.5 mmol/L (3.5-5.1)
[2016-08-11 07:15] LABS: CREATININE 11.35 mg/dl (0.61-1.24)
[2016-08-11 07:16] LABS: ALBUMIN/GLOBULIN RATIO 0.75; BILIRUBIN,INDIRECT 0.1 mg/dl (0-1.1); BILIRUBIN,TOTAL 0.1 mg/dl (0.2-1.3); CALCIUM 7.9 mg/dl (8.4-10.2); TOTAL PROTEIN 7.2 g/dl (6.1-8.1)
[2016-08-11] MEDS: ACCU-CHEK XX SCH ×4 (07:20→21:00)
[2016-08-11] MEDS: INSULIN ASPART [NOVOLOG] 3 ML PEN SC SCH ×4 (07:50→21:00)
[2016-08-11] MEDS: SEVELAMER CARBONATE 0.8 GM PKT PO SCH ×3 (07:50→17:16)
[2016-08-11] MEDS: ISOSORBIDE DINITRATE 10 MG TAB PO SCH ×3 (08:35→21:00)
--- NOTE | 2016-08-11 14:48 | CONS ---
Date/Time of Note Date/Time of Note DATE: 08/11/16 TIME: 14:46 Assessment/Plan Assessment/Plan Chief Complaint/Hosp Course 1. s/p Laparoscopic cholecystectomy for cholecystitis. doing well, tolerating liquid diet 2. ESRD - s/p extra HD today, next planned for tomorrow Problems: Consultation Date/Type/Reason Admit Date/Time Aug 07, 2016 at 09:20 Type of Consultation: neph 24 HR Interval Summary Free Text/Dictation Feels better, tolerating clear liquids, less abdominal pain. Exam/Review of Systems Vital Signs Vitals Vital Signs Date Time Temp Pulse Resp B/P Pulse Ox O2 Delivery O2 Flow Rate FiO2 08/11/16 09:45 86 18 08/10/16 20:57 2.0 08/10/16 19:52 97.7 136/81 100 08/10/16 19:50 Nasal Cannula 08/08/16 14:48 21 Intake and Output 08/10/16 08/10/16 08/11/16 15:00 23:00 07:00 Intake Total 1350 ml 600 ml Output Total 35 ml 30 ml Balance 1315 ml 570 ml Exam Head: atraumatic, normocephalic Neck: supple Respiratory: clear to auscultation Cardiovascular: regular rate and rhythm Gastrointestinal: distended (mild) Extremities: No edema Results Result Diagram: 08/11/16 0514 08/11/16 0514 Results 24 hrs Laboratory Tests Test 08/10/16 17:26 08/11/16 05:14 08/11/16 08:28 Bedside Glucose 99 126 White Blood Count 6.1 Red Blood Count 3.04 L Hemoglobin 9.5 L Hematocrit 29.3 L Mean Corpuscular Volume 96.4 Mean Corpuscular Hemoglobin 31.3 Mean Corpuscular Hemoglobin Concent 32.4 Red Cell Distribution Width 17.3 H Platelet Count 272 Mean Platelet Volume 10.3 Neutrophils % 58.3 Lymphocytes % 23.6 Monocytes % 11.6 H Eosinophils % 5.3 Basophils % 0.7 Nucleated Red Blood Cells % 0.0 Neutrophils # 3.5 Lymphocytes # 1.4 Monocytes # 0.7 Eosinophils # 0.3 Basophils # 0.0 Nucleated Red Blood Cells # 0.0 Sodium Level 139 Potassium Level 4.5 Chloride Level 96 L Carbon Dioxide Level 23 Anion Gap 25 H Blood Urea Nitrogen 44 H Creatinine 11.35 H Glucose Level 84 Calcium Level 7.9 L Total Bilirubin 0.1 L Direct Bilirubin 0.00 Indirect Bilirubin 0.1 Aspartate Amino Transf (AST/SGOT) 17 Alanine Aminotransferase (ALT/SGPT) 22 Alkaline Phosphatase 85 Total Protein 7.2 Albumin 3.1 L Globulin 4.10 H Albumin/Globulin Ratio 0.75 Medications Medications Current Medications Ondansetron HCl (Zofran Tab) 4 mg Q6H PRN PO NAUSEA AND/OR VOMITING; Start at 13:30 Ondansetron HCl (Zofran Inj) 4 mg Q6H PRN IV NAUSEA AND/OR VOMITING; Start at 13:30 Metoclopramide HCl (Reglan) 10 mg Q6H PRN IV NAUSEA AND/OR VOMITING; Start at 13:30 Acetaminophen (Tylenol Tab) 650 mg Q6H PRN PO PAIN LEVEL 1-3 OR FEVER Last administered on 08/06/16 01:39; Admin Dose 650 MG; Start 08/05/16 at 13:30 Acetaminophen/ Hydrocodone Bitart ([place] (5/325)) 1 tab Q6H PRN PO MODERATE PAIN LEVEL 4-6 Last administered on 08/10/16 17:33; Admin Dose 1 TAB; Start at 13:30 Zolpidem Tartrate (Ambien) 5 mg QHS PRN PO SLEEP; Start 08/05/16 at 13:30 Pantoprazole (Protonix Iv) 40 mg DAILY@06 IV Last administered on 08/11/16 05: 38; Admin Dose 40 MG; Start 08/06/16 at 06:00 Heparin Sodium (Porcine) 5000 unit 5,000 unit Q8 SC ; Start 08/05/16 at 14:00 Piperacillin Sod/ Tazobactam Sod (Zosyn 2.25gm/ 50ml (Pmx)) 50 ml @ 100 mls/hr Q8 IVPB Last administered on 08/11/16 12:59; Admin Dose 100 MLS/HR; Start at 14:00 Miscellaneous Information 1 ea NOTE XX ; Start 08/06/16 at 12:00 Glucose (Glutose) 15 gm Q15M PRN PO DECREASED GLUCOSE; Start 08/06/16 at 12:00 Glucose (Glutose) 22.5 gm Q15M PRN PO DECREASED GLUCOSE; Start 08/06/16 at 12: 00 Dextrose (D50w Syringe) 25 ml Q15M PRN IV DECREASED GLUCOSE; Start 08/06/16 at 12:00 Dextrose (D50w Syringe) 50 ml Q15M PRN IV DECREASED GLUCOSE; Start 08/06/16 at 12:00 Glucagon (Glucagen) 1 mg Q15M PRN IM DECREASED GLUCOSE; Start 08/06/16 at 12:00 Glucose (Glutose) 15 gm Q15M PRN BUCCAL DECREASED GLUCOSE; Start 08/06/16 at 12 :00 Hydralazine HCl (Apresoline) 25 mg TID PO Last administered on 08/11/16 12:57 ; Admin Dose 25 MG; Start 08/08/16 at 21:00 Isosorbide Dinitrate (Isordil) 10 mg TID PO Last administered on 08/11/16 12: 57; Admin Dose 10 MG; Start 08/08/16 at 21:00 Morphine Sulfate (morphine) 4 mg Q4H PRN IV SEVERE PAIN LEVEL 7-10 Last administered on 08/11/16 10:41; Admin Dose 4 MG; Start 08/11/16 at 01:30 ULISES ALMEIDA MD Aug 11, 2016 14:48
--- NOTE | 2016-08-11 15:39 | CONS ---
Date/Time of Note Date/Time of Note DATE: 08/11/16 TIME: 15:37 Assessment/Plan Assessment/Plan Additional Assessment/Plan Nonischemic cardiomyopathy with ejection fraction 35% Compensated systolic congestive heart failure End-stage renal disease on hemodialysis Peripheral arterial disease Hypertension Status post cholecystectomy -Patient with intermittent compliance with medications, currently taking antihypertensives and blood pressure has improved. Would continue as blood pressure tolerates, would add beta-lebron. Fluid management via hemodialysis as per our nephrology colleagues. Consultation Date/Type/Reason Admit Date/Time Aug 07, 2016 at 09:20 Type of Consultation: cv 24 HR Interval Summary Free Text/Dictation Patient denies shortness of breath, chest pain Exam/Review of Systems Vital Signs Vitals Vital Signs Date Time Temp Pulse Resp B/P Pulse Ox O2 Delivery O2 Flow Rate FiO2 08/11/16 09:45 86 18 08/11/16 09:00 Nasal Cannula 2.0 08/10/16 19:52 97.7 136/81 100 08/08/16 14:48 21 Intake and Output 08/10/16 08/10/16 08/11/16 15:00 23:00 07:00 Intake Total 1350 ml 600 ml Output Total 35 ml 30 ml Balance 1315 ml 570 ml Exam No apparent distress Constitutional: alert, oriented Head: normocephalic Respiratory: other (Coarse breath sounds bilaterally, no wheezing) Cardiovascular: other (S1-S2 heard), regular rate and rhythm Gastrointestinal: bowel sounds, non-tender, soft Extremities: edema Results Result Diagram: 08/11/16 0514 08/11/16 0514 Results 24 hrs Laboratory Tests Test 08/10/16 17:26 08/11/16 05:14 08/11/16 08:28 Bedside Glucose 99 126 White Blood Count 6.1 Red Blood Count 3.04 L Hemoglobin 9.5 L Hematocrit 29.3 L Mean Corpuscular Volume 96.4 Mean Corpuscular Hemoglobin 31.3 Mean Corpuscular Hemoglobin Concent 32.4 Red Cell Distribution Width 17.3 H Platelet Count 272 Mean Platelet Volume 10.3 Neutrophils % 58.3 Lymphocytes % 23.6 Monocytes % 11.6 H Eosinophils % 5.3 Basophils % 0.7 Nucleated Red Blood Cells % 0.0 Neutrophils # 3.5 Lymphocytes # 1.4 Monocytes # 0.7 Eosinophils # 0.3 Basophils # 0.0 Nucleated Red Blood Cells # 0.0 Sodium Level 139 Potassium Level 4.5 Chloride Level 96 L Carbon Dioxide Level 23 Anion Gap 25 H Blood Urea Nitrogen 44 H Creatinine 11.35 H Glucose Level 84 Calcium Level 7.9 L Total Bilirubin 0.1 L Direct Bilirubin 0.00 Indirect Bilirubin 0.1 Aspartate Amino Transf (AST/SGOT) 17 Alanine Aminotransferase (ALT/SGPT) 22 Alkaline Phosphatase 85 Total Protein 7.2 Albumin 3.1 L Globulin 4.10 H Albumin/Globulin Ratio 0.75 Medications Medications Current Medications Ondansetron HCl (Zofran Tab) 4 mg Q6H PRN PO NAUSEA AND/OR VOMITING; Start at 13:30 Ondansetron HCl (Zofran Inj) 4 mg Q6H PRN IV NAUSEA AND/OR VOMITING; Start at 13:30 Metoclopramide HCl (Reglan) 10 mg Q6H PRN IV NAUSEA AND/OR VOMITING; Start at 13:30 Acetaminophen (Tylenol Tab) 650 mg Q6H PRN PO PAIN LEVEL 1-3 OR FEVER Last administered on 08/06/16 01:39; Admin Dose 650 MG; Start 08/05/16 at 13:30 Acetaminophen/ Hydrocodone Bitart ([place] (5/325)) 1 tab Q6H PRN PO MODERATE PAIN LEVEL 4-6 Last administered on 08/10/16 17:33; Admin Dose 1 TAB; Start at 13:30 Zolpidem Tartrate (Ambien) 5 mg QHS PRN PO SLEEP; Start 08/05/16 at 13:30 Pantoprazole (Protonix Iv) 40 mg DAILY@06 IV Last administered on 08/11/16 05: 38; Admin Dose 40 MG; Start 08/06/16 at 06:00 Heparin Sodium (Porcine) 5000 unit 5,000 unit Q8 SC ; Start 08/05/16 at 14:00 Piperacillin Sod/ Tazobactam Sod (Zosyn 2.25gm/ 50ml (Pmx)) 50 ml @ 100 mls/hr Q8 IVPB Last administered on 08/11/16 12:59; Admin Dose 100 MLS/HR; Start at 14:00 Miscellaneous Information 1 ea NOTE XX ; Start 08/06/16 at 12:00 Glucose (Glutose) 15 gm Q15M PRN PO DECREASED GLUCOSE; Start 08/06/16 at 12:00 Glucose (Glutose) 22.5 gm Q15M PRN PO DECREASED GLUCOSE; Start 08/06/16 at 12: 00 Dextrose (D50w Syringe) 25 ml Q15M PRN IV DECREASED GLUCOSE; Start 08/06/16 at 12:00 Dextrose (D50w Syringe) 50 ml Q15M PRN IV DECREASED GLUCOSE; Start 08/06/16 at 12:00 Glucagon (Glucagen) 1 mg Q15M PRN IM DECREASED GLUCOSE; Start 08/06/16 at 12:00 Glucose (Glutose) 15 gm Q15M PRN BUCCAL DECREASED GLUCOSE; Start 08/06/16 at 12 :00 Hydralazine HCl (Apresoline) 25 mg TID PO Last administered on 08/11/16 12:57 ; Admin Dose 25 MG; Start 08/08/16 at 21:00 Isosorbide Dinitrate (Isordil) 10 mg TID PO Last administered on 08/11/16 12: 57; Admin Dose 10 MG; Start 08/08/16 at 21:00 Morphine Sulfate (morphine) 4 mg Q4H PRN IV SEVERE PAIN LEVEL 7-10 Last administered on 08/11/16 10:41; Admin Dose 4 MG; Start 08/11/16 at 01:30 Benjamin Lal DO Aug 11, 2016 15:39
[2016-08-12] VITALS (9 sets, daily range): BP systolic 130–184; BP diastolic 70–97; PULSE 86–92; RESP 18
[2016-08-12] MEDS: ZOLPIDEM 5 MG TAB PO PRN ×2 (02:43→23:57)
[2016-08-12 05:10] LABS: ADD SCAN DIFF NO
[2016-08-12 05:20] LABS: BASOPHILS % 0.2 % (0.0-2.0); EOSINOPHILS # 0.5 10^3/ul (0.0-0.5); EOSINOPHILS % 5.9 % (0.0-7.0); HEMATOCRIT 31.4 % (42.0-52.0); HEMOGLOBIN 9.8 g/dl (14.0-18.0); LYMPHOCYTES # 1.5 10^3/ul (0.8-2.9); LYMPHOCYTES % 17.9 % (15.0-51.0); MEAN CORPUSCULAR HEMOGLOBIN 30.3 pg (29.0-33.0); MEAN CORPUSCULAR HGB CONC 31.2 g/dl (32.0-37.0); MEAN CORPUSCULAR VOLUME 97.2 fl (82.0-101.0); MEAN PLATELET VOLUME 10.2 fl (7.4-10.4); MONOCYTE # 0.8 10^3/ul (0.3-0.9); MONOCYTES % 10.2 % (0.0-11.0); NEUTROPHIL # 5.3 10^3/ul (1.6-7.5); NEUTROPHILS % 65.4 % (39.0-77.0); PLATELET COUNT 310 10^3/UL (140-415); RED BLOOD COUNT 3.23 10^6/ul (4.70-6.10); RED CELL DISTRIBUTION WIDTH 17.2 % (11.5-14.5); WHITE BLOOD COUNT 8.1 10^3/ul (4.8-10.8)
[2016-08-12 05:24] LABS: ALBUMIN 3.6 g/dl (3.3-4.9)
[2016-08-12 05:25] LABS: POTASSIUM 3.9 mmol/L (3.5-5.1)
[2016-08-12 05:27] LABS: ALBUMIN/GLOBULIN RATIO 0.75; CREATININE 9.22 mg/dl (0.61-1.24); TOTAL PROTEIN 8.4 g/dl (6.1-8.1)
[2016-08-12 05:28] LABS: CALCIUM 8.4 mg/dl (8.4-10.2)
[2016-08-12] MEDS: HEPARIN 5,000 UNIT/0.5 ML VIAL SC SCH ×3 (06:00→20:36)
[2016-08-12] MEDS: PIPER-TAZO 2.25 GM (PMX) 50 ML IVPB SCH ×2 (06:03→23:57)
[2016-08-12] MEDS: PANTOPRAZOLE 40 MG INJ IV SCH (06:03)
[2016-08-12] MEDS: ACCU-CHEK XX SCH ×4 (07:20→20:24)
[2016-08-12] MEDS: INSULIN ASPART [NOVOLOG] 3 ML PEN SC SCH ×4 (07:50→20:24)
[2016-08-12] MEDS: SEVELAMER CARBONATE 0.8 GM PKT PO SCH ×3 (08:41→17:55)
[2016-08-12] MEDS: ISOSORBIDE DINITRATE 10 MG TAB PO SCH ×2 (09:00→13:00)
[2016-08-12] MEDS: morphine 2 MG INJ IV PRN ×3 (10:55→22:16)
--- NOTE | 2016-08-12 11:28 | PN ---
Date/Time of Note Date/Time of Note DATE: 08/10/16 TIME: 11:21 Assessment/Plan Lines/Catheters IV Catheter Type (from [facility]): Peripheral IV Lam in Place (from [facility]): No Assessment/Plan Chief Complaint/Hosp Course 1. Abdominal pain with mild leukocytosis and ultrasound findings are suggestive of mild symptomatic cholelithiasis and cholecystitis. MRCP noted. s /p 3 port lap difficult juanis 08/09. -antibiotics -supportive care -drain 2. BMI 30. Encouraged nutritional optimization and exercise as tolerated. 3. Diabetes type 2. Continue the nutrition and medication control and encourage weight optimization. 4. Hypertension. Continue nutrition and medication control and encourage weight optimization. 5. Anemia without evidence of acute blood loss. Monitor. 6. End-stage renal disease on hemodialysis. 7. Cardiomyopathy with ejection fraction of 35%. Cardiology follow up. 8. Electrolyte abnormalities with hyponatremia and hypocalcemia. Please correct and replete as needed. 9. Non compliance with medication causing significant HTN -pt has been encouraged highly on daily basis to comply with medical treatments to optimize him for surgery Thank you Late entry 08/10 Problems: Subjective 24 Hr Interval Summary s/p 3 port lap juanis 08/09. Pain improving. No f/c. No n/v. No cp/sob. No glass. No visual or neuro changes. No dysuria. No cough. No bloating. No bleeding. Exam/Review of Systems Vital Signs Vitals Vital Signs Date Time Temp Pulse Resp B/P Pulse Ox O2 Delivery O2 Flow Rate FiO2 08/12/16 08:04 98.0 91 18 184/87 99 08/11/16 21:00 Room Air 08/11/16 09:00 2.0 08/08/16 14:48 21 Intake and Output 08/11/16 08/11/16 08/12/16 15:00 23:00 07:00 Intake Total 350 ml 1170 ml 200 ml Output Total 3300 ml 20 ml Balance -2950 ml 1150 ml 200 ml Exam Free Text/Dictation GENERAL: No acute distress, obese, pleasant. HEENT: No scleral icterus. Mucous membranes are somewhat dry. NECK: Minimal JVD. No crepitus. Trachea midline. PULMONARY: Normal respiratory effort. No wheezing. CARDIAC: S1, S2 present. ABDOMEN: Soft, minimally tender in right upper quadrant without rebound, guarding, Edmond's, or rigidity. Drain. EXTREMITIES: Left BKA. No edema. VASCULAR: Cap refill less than 3 seconds. NEUROLOGIC: Alert, oriented, moves extremities grossly. Results Result Diagram: 08/12/16 0425 08/12/16 0425 ADOLFO SHERMAN MD Aug 12, 2016 11:28
--- NOTE | 2016-08-12 11:29 | PN ---
Date/Time of Note Date/Time of Note DATE: 08/11/16 TIME: 11:28 Assessment/Plan Lines/Catheters IV Catheter Type (from [facility]): Peripheral IV Lam in Place (from [facility]): No Assessment/Plan Chief Complaint/Hosp Course 1. Abdominal pain with mild leukocytosis and ultrasound findings are suggestive of mild symptomatic cholelithiasis and cholecystitis. MRCP noted. s /p 3 port lap difficult juanis 08/09. -antibiotics -pain control -drain -diet as tolerated 2. BMI 30. Encouraged nutritional optimization and exercise as tolerated. 3. Diabetes type 2. Continue the nutrition and medication control and encourage weight optimization. 4. Hypertension. Continue nutrition and medication control and encourage weight optimization. 5. Anemia without evidence of acute blood loss. Monitor. 6. End-stage renal disease on hemodialysis. 7. Cardiomyopathy with ejection fraction of 35%. Cardiology follow up. 8. Electrolyte abnormalities with hyponatremia and hypocalcemia. Please correct and replete as needed. 9. Non compliance with medication causing significant HTN -pt has been encouraged highly on daily basis to comply with medical treatments to optimize him for surgery Thank you Late entry 08/11 Problems: Subjective 24 Hr Interval Summary s/p 3 port lap juanis 08/09. Pain improving. No f/c. No n/v. No cp/sob. No glass. No visual or neuro changes. No dysuria. No cough. No bloating. No bleeding. Exam/Review of Systems Vital Signs Vitals Vital Signs Date Time Temp Pulse Resp B/P Pulse Ox O2 Delivery O2 Flow Rate FiO2 08/12/16 08:04 98.0 91 18 184/87 99 08/11/16 21:00 Room Air 08/11/16 09:00 2.0 08/08/16 14:48 21 Intake and Output 08/11/16 08/11/16 08/12/16 15:00 23:00 07:00 Intake Total 350 ml 1170 ml 200 ml Output Total 3300 ml 20 ml Balance -2950 ml 1150 ml 200 ml Exam Free Text/Dictation GENERAL: No acute distress, obese, pleasant. HEENT: No scleral icterus. Mucous membranes are somewhat dry. NECK: Minimal JVD. No crepitus. Trachea midline. PULMONARY: Normal respiratory effort. No wheezing. CARDIAC: S1, S2 present. ABDOMEN: Soft, minimally tender. Drain. EXTREMITIES: Left BKA. No edema. VASCULAR: Cap refill less than 3 seconds. NEUROLOGIC: Alert, oriented, moves extremities grossly. Results Result Diagram: 08/12/16 0425 08/12/16 0425 ADOLFO SHERMAN MD Aug 12, 2016 11:29
--- NOTE | 2016-08-12 11:44 | PN ---
Date/Time of Note Date/Time of Note DATE: 08/12/16 TIME: 11:29 Assessment/Plan Lines/Catheters IV Catheter Type (from Nrs): Peripheral IV Lam in Place (from Nrs): No Assessment/Plan Chief Complaint/Hosp Course 1. Abdominal pain with mild leukocytosis and ultrasound findings are suggestive of mild symptomatic cholelithiasis and cholecystitis. MRCP noted. s /p 3 port lap difficult juanis 08/09. -antibiotics -drain -diet as tolerated -dc planning per primary 2. BMI 30. Encouraged nutritional optimization and exercise as tolerated. 3. Diabetes type 2. Continue the nutrition and medication control and encourage weight optimization. 4. Hypertension. Continue nutrition and medication control and encourage weight optimization. 5. Anemia without evidence of acute blood loss. Monitor. 6. End-stage renal disease on hemodialysis. 7. Cardiomyopathy with ejection fraction of 35%. Cardiology follow up. 8. Electrolyte abnormalities with hyponatremia and hypocalcemia. Please correct and replete as needed. 9. Non compliance with medication causing significant HTN -pt has been encouraged highly on daily basis to comply with medical treatments to optimize him for surgery Thank you Problems: Subjective 24 Hr Interval Summary s/p 3 port lap juanis 08/09. Pain improving. No f/c. No n/v. No cp/sob. No glass. No visual or neuro changes. No dysuria. No cough. No bloating. No bleeding. Exam/Review of Systems Vital Signs Vitals Vital Signs Date Time Temp Pulse Resp B/P Pulse Ox O2 Delivery O2 Flow Rate FiO2 08/12/16 08:04 98.0 91 18 184/87 99 08/11/16 21:00 Room Air 08/11/16 09:00 2.0 08/08/16 14:48 21 Intake and Output 08/11/16 08/11/16 08/12/16 15:00 23:00 07:00 Intake Total 350 ml 1170 ml 200 ml Output Total 3300 ml 20 ml Balance -2950 ml 1150 ml 200 ml Exam Free Text/Dictation GENERAL: No acute distress, obese, pleasant. HEENT: No scleral icterus. Mucous membranes are somewhat dry. NECK: Minimal JVD. No crepitus. Trachea midline. PULMONARY: Normal respiratory effort. No wheezing. CARDIAC: S1, S2 present. ABDOMEN: Soft, minimally tender. Drain. EXTREMITIES: Left BKA. No edema. VASCULAR: Cap refill less than 3 seconds. NEUROLOGIC: Alert, oriented, moves extremities grossly. Results Result Diagram: 08/12/16 0425 08/12/16 0425 ADOLFO SHERMAN MD Aug 12, 2016 11:39
--- NOTE | 2016-08-12 13:14 | CONS ---
Date/Time of Note Date/Time of Note DATE: 08/12/16 TIME: 13:03 Assessment/Plan Assessment/Plan Chief Complaint/Hosp Course 1. End-stage renal disease he is now having a hemodialysis treatment. He is doing well. 2. 3 days status post laparoscopic cholecystectomy. He is feeling better and having bowel movements. 3. Diabetes mellitus with diabetic nephropathy 4. Hypertension 5. Peripheral artery disease. Problems: Consultation Date/Type/Reason Admit Date/Time Aug 07, 2016 at 09:20 Initial Consult Date Type of Consultation: cv 24 HR Interval Summary Free Text/Dictation He is awake and alert. He is currently having a dialysis treatment. He is 3 days postop a laparoscopic cholecystectomy. Constitutional: improved, no complaints Exam/Review of Systems Vital Signs Vitals Vital Signs Date Time Temp Pulse Resp B/P Pulse Ox O2 Delivery O2 Flow Rate FiO2 08/12/16 08:04 98.0 91 18 184/87 99 08/11/16 21:00 Room Air 08/11/16 09:00 2.0 08/08/16 14:48 21 Intake and Output 08/11/16 08/11/16 08/12/16 15:00 23:00 07:00 Intake Total 350 ml 1170 ml 200 ml Output Total 3300 ml 20 ml Balance -2950 ml 1150 ml 200 ml Exam Status post left BK amputation. Constitutional: alert, oriented Respiratory: clear to auscultation Cardiovascular: regular rate and rhythm Gastrointestinal: soft Results Result Diagram: 08/12/16 0425 08/12/16 0425 Results 24 hrs Laboratory Tests Test 08/12/16 04:25 White Blood Count 8.1 # Red Blood Count 3.23 L Hemoglobin 9.8 L Hematocrit 31.4 L Mean Corpuscular Volume 97.2 Mean Corpuscular Hemoglobin 30.3 Mean Corpuscular Hemoglobin Concent 31.2 L Red Cell Distribution Width 17.2 H Platelet Count 310 Mean Platelet Volume 10.2 Neutrophils % 65.4 Lymphocytes % 17.9 Monocytes % 10.2 Eosinophils % 5.9 Basophils % 0.2 Nucleated Red Blood Cells % 0.0 Neutrophils # 5.3 Lymphocytes # 1.5 Monocytes # 0.8 Eosinophils # 0.5 Basophils # 0.0 Nucleated Red Blood Cells # 0.0 Sodium Level 141 Potassium Level 3.9 Chloride Level 97 Carbon Dioxide Level 28 Anion Gap 20 H Blood Urea Nitrogen 29 #H Creatinine 9.22 #H Glucose Level 104 Calcium Level 8.4 Total Bilirubin 0.0 L Direct Bilirubin 0.00 Indirect Bilirubin 0.0 Aspartate Amino Transf (AST/SGOT) 18 Alanine Aminotransferase (ALT/SGPT) 16 Alkaline Phosphatase 94 Total Protein 8.4 H Albumin 3.6 Globulin 4.80 H Albumin/Globulin Ratio 0.75 Medications Medications Current Medications Ondansetron HCl (Zofran Tab) 4 mg Q6H PRN PO NAUSEA AND/OR VOMITING; Start at 13:30 Ondansetron HCl (Zofran Inj) 4 mg Q6H PRN IV NAUSEA AND/OR VOMITING; Start at 13:30 Metoclopramide HCl (Reglan) 10 mg Q6H PRN IV NAUSEA AND/OR VOMITING; Start at 13:30 Acetaminophen (Tylenol Tab) 650 mg Q6H PRN PO PAIN LEVEL 1-3 OR FEVER Last administered on 08/06/16 01:39; Admin Dose 650 MG; Start 08/05/16 at 13:30 Acetaminophen/ Hydrocodone Bitart ([place] (5/325)) 1 tab Q6H PRN PO MODERATE PAIN LEVEL 4-6 Last administered on 08/10/16 17:33; Admin Dose 1 TAB; Start at 13:30 Zolpidem Tartrate (Ambien) 5 mg QHS PRN PO SLEEP Last administered on 02:43; Admin Dose 5 MG; Start 08/05/16 at 13:30 Pantoprazole (Protonix Iv) 40 mg DAILY@06 IV Last administered on 08/12/16 06: 03; Admin Dose 40 MG; Start 08/06/16 at 06:00 Heparin Sodium (Porcine) 5000 unit 5,000 unit Q8 SC ; Start 08/05/16 at 14:00 Piperacillin Sod/ Tazobactam Sod (Zosyn 2.25gm/ 50ml (Pmx)) 50 ml @ 100 mls/hr Q8 IVPB Last administered on 08/12/16 06:03; Admin Dose 100 MLS/HR; Start at 14:00 Miscellaneous Information 1 ea NOTE XX ; Start 08/06/16 at 12:00 Glucose (Glutose) 15 gm Q15M PRN PO DECREASED GLUCOSE; Start 08/06/16 at 12:00 Glucose (Glutose) 22.5 gm Q15M PRN PO DECREASED GLUCOSE; Start 08/06/16 at 12: 00 Dextrose (D50w Syringe) 25 ml Q15M PRN IV DECREASED GLUCOSE; Start 08/06/16 at 12:00 Dextrose (D50w Syringe) 50 ml Q15M PRN IV DECREASED GLUCOSE; Start 08/06/16 at 12:00 Glucagon (Glucagen) 1 mg Q15M PRN IM DECREASED GLUCOSE; Start 08/06/16 at 12:00 Glucose (Glutose) 15 gm Q15M PRN BUCCAL DECREASED GLUCOSE; Start 08/06/16 at 12 :00 Hydralazine HCl (Apresoline) 25 mg TID PO Last administered on 08/12/16 08:48 ; Admin Dose 25 MG; Start 08/08/16 at 21:00 Isosorbide Dinitrate (Isordil) 10 mg TID PO Last administered on 08/11/16 12: 57; Admin Dose 10 MG; Start 08/08/16 at 21:00 Morphine Sulfate (morphine) 4 mg Q4H PRN IV SEVERE PAIN LEVEL 7-10 Last administered on 08/12/16 10:55; Admin Dose 4 MG; Start 08/11/16 at 01:30 LINDSAY ROMERO MD Aug 12, 2016 13:14
[2016-08-12] MEDS ORDERED: PIPER-TAZO 2.25 GM (PMX) 50 ML IVPB SCH (15:00)
--- NOTE | 2016-08-12 16:03 | CONS ---
Date/Time of Note Date/Time of Note DATE: 08/12/16 TIME: 16:01 Assessment/Plan Assessment/Plan Additional Assessment/Plan Nonischemic cardiomyopathy with ejection fraction 35% Compensated systolic congestive heart failure End-stage renal disease on hemodialysis Peripheral arterial disease Hypertension Status post cholecystectomy -Blood pressure trend improving when medications are taken. Secondary to compliance, would adjust to twice daily dosing. Would start UBALDO inhibitor given cardiomyopathy now that patient status post surgery and hemodialysis patient. Will start low-dose Coreg and increase as blood pressure and heart rate permits. No contraindication, patient would benefit from aspirin and statin therapy, will start low-dose. Consultation Date/Type/Reason Admit Date/Time Aug 07, 2016 at 09:20 Type of Consultation: cv 24 HR Interval Summary Free Text/Dictation Denies chest pain, shortness of breath. Feeling better Exam/Review of Systems Vital Signs Vitals Vital Signs Date Time Temp Pulse Resp B/P Pulse Ox O2 Delivery O2 Flow Rate FiO2 08/12/16 14:30 88 08/12/16 12:00 18 08/12/16 08:04 98.0 184/87 99 08/11/16 21:00 Room Air 08/11/16 09:00 2.0 08/08/16 14:48 21 Intake and Output 08/11/16 08/11/16 08/12/16 15:00 23:00 07:00 Intake Total 350 ml 1170 ml 200 ml Output Total 3300 ml 20 ml Balance -2950 ml 1150 ml 200 ml Exam No apparent distress Constitutional: alert, oriented Head: normocephalic Respiratory: other (Coarse breath sounds bilaterally, no wheezing) Cardiovascular: other (S1-S2 heard), regular rate and rhythm Gastrointestinal: bowel sounds, non-tender, soft Extremities: edema (Trace) Results Result Diagram: 08/12/16 0425 08/12/16 0425 Results 24 hrs Laboratory Tests Test 08/12/16 04:25 White Blood Count 8.1 # Red Blood Count 3.23 L Hemoglobin 9.8 L Hematocrit 31.4 L Mean Corpuscular Volume 97.2 Mean Corpuscular Hemoglobin 30.3 Mean Corpuscular Hemoglobin Concent 31.2 L Red Cell Distribution Width 17.2 H Platelet Count 310 Mean Platelet Volume 10.2 Neutrophils % 65.4 Lymphocytes % 17.9 Monocytes % 10.2 Eosinophils % 5.9 Basophils % 0.2 Nucleated Red Blood Cells % 0.0 Neutrophils # 5.3 Lymphocytes # 1.5 Monocytes # 0.8 Eosinophils # 0.5 Basophils # 0.0 Nucleated Red Blood Cells # 0.0 Sodium Level 141 Potassium Level 3.9 Chloride Level 97 Carbon Dioxide Level 28 Anion Gap 20 H Blood Urea Nitrogen 29 #H Creatinine 9.22 #H Glucose Level 104 Calcium Level 8.4 Total Bilirubin 0.0 L Direct Bilirubin 0.00 Indirect Bilirubin 0.0 Aspartate Amino Transf (AST/SGOT) 18 Alanine Aminotransferase (ALT/SGPT) 16 Alkaline Phosphatase 94 Total Protein 8.4 H Albumin 3.6 Globulin 4.80 H Albumin/Globulin Ratio 0.75 Medications Medications Current Medications Ondansetron HCl (Zofran Tab) 4 mg Q6H PRN PO NAUSEA AND/OR VOMITING; Start at 13:30 Ondansetron HCl (Zofran Inj) 4 mg Q6H PRN IV NAUSEA AND/OR VOMITING; Start at 13:30 Metoclopramide HCl (Reglan) 10 mg Q6H PRN IV NAUSEA AND/OR VOMITING; Start at 13:30 Acetaminophen (Tylenol Tab) 650 mg Q6H PRN PO PAIN LEVEL 1-3 OR FEVER Last administered on 08/06/16 01:39; Admin Dose 650 MG; Start 08/05/16 at 13:30 Acetaminophen/ Hydrocodone Bitart ([place] (5/325)) 1 tab Q6H PRN PO MODERATE PAIN LEVEL 4-6 Last administered on 08/10/16 17:33; Admin Dose 1 TAB; Start at 13:30 Zolpidem Tartrate (Ambien) 5 mg QHS PRN PO SLEEP Last administered on 02:43; Admin Dose 5 MG; Start 08/05/16 at 13:30 Heparin Sodium (Porcine) (Heparin (5000 Units/0.5 ml)) 5,000 unit Q8 SC ; Start 08/05/16 at 14:00 Miscellaneous Information 1 ea NOTE XX ; Start 08/06/16 at 12:00 Glucose (Glutose) 15 gm Q15M PRN PO DECREASED GLUCOSE; Start 08/06/16 at 12:00 Glucose (Glutose) 22.5 gm Q15M PRN PO DECREASED GLUCOSE; Start 08/06/16 at 12: 00 Dextrose (D50w Syringe) 25 ml Q15M PRN IV DECREASED GLUCOSE; Start 08/06/16 at 12:00 Dextrose (D50w Syringe) 50 ml Q15M PRN IV DECREASED GLUCOSE; Start 08/06/16 at 12:00 Glucagon (Glucagen) 1 mg Q15M PRN IM DECREASED GLUCOSE; Start 08/06/16 at 12:00 Glucose (Glutose) 15 gm Q15M PRN BUCCAL DECREASED GLUCOSE; Start 08/06/16 at 12 :00 Hydralazine HCl (Apresoline) 25 mg TID PO Last administered on 08/12/16 08:48 ; Admin Dose 25 MG; Start 08/08/16 at 21:00 Isosorbide Dinitrate (Isordil) 10 mg TID PO Last administered on 08/11/16 12: 57; Admin Dose 10 MG; Start 08/08/16 at 21:00 Morphine Sulfate 4 mg 4 mg Q4H PRN IV SEVERE PAIN LEVEL 7-10 Last administered on 08/12/16 10:55; Admin Dose 4 MG; Start 08/11/16 at 01:30 Piperacillin Sod/ Tazobactam Sod (Zosyn 2.25gm/ 50ml (Pmx)) 50 ml @ 100 mls/hr Q8 IVPB ; Start 08/12/16 at 15:00 Pantoprazole (Protonix Tab) 40 mg DAILY@06 PO ; Start 08/13/16 at 06:00 Benjamin Lal DO Aug 12, 2016 16:03
[2016-08-12] MEDS: ATORVASTATIN 20 MG TAB PO SCH (20:23)
[2016-08-12] MEDS: LISINOPRIL 5 MG TAB PO SCH (20:24)
[2016-08-13] MEDS: HEPARIN 5,000 UNIT/0.5 ML VIAL SC SCH ×3 (05:16→22:00)
[2016-08-13] MEDS: PANTOPRAZOLE (EC) 40 MG TAB PO SCH ×3 (05:24→06:00)
[2016-08-13] MEDS: HYDROCODONE/APAP (5/325) TAB PO PRN ×4 (05:25→21:58)
[2016-08-13] MEDS: ACCU-CHEK XX SCH ×4 (07:20→21:00)
[2016-08-13] MEDS: INSULIN ASPART [NOVOLOG] 3 ML PEN SC SCH ×4 (07:50→21:00)
[2016-08-13] MEDS: SEVELAMER CARBONATE 0.8 GM PKT PO SCH ×3 (08:32→17:55)
[2016-08-13] MEDS: ASPIRIN 81 MG TAB PO SCH (08:33)
[2016-08-13] MEDS: PIPER-TAZO 2.25 GM (PMX) 50 ML IVPB SCH (08:33)
[2016-08-13] MEDS: LISINOPRIL 5 MG TAB PO SCH ×2 (08:34→21:00)
--- NOTE | 2016-08-13 08:54 | PN ---
Date/Time of Note Date/Time of Note DATE: 08/13/16 TIME: 08:52 Assessment/Plan VTE Prophylaxis VTE Prophylaxis Intervention: other Lines/Catheters IV Catheter Type (from Nrsg): Saline Lock Urinary Cath still in place: No Assessment/Plan Assessment/Plan 1. End-stage renal disease, with next hd scheduled tomm 2. Post op cholecystectomy, will rev with surgery re:dc 1-2 d 3. Diabetes mellitus with diabetic nephropathy, sugar control acceptable 4. Hypertension, controlled 5. Peripheral artery disease, asx Subjective 24 Hr Interval Summary Cardiovascular: No chest pain, No lightheadedness Gastrointestinal: no complaints Genitourinary: no complaints Exam/Review of Systems Vital Signs Vitals Vital Signs Date Time Temp Pulse Resp B/P Pulse Ox O2 Delivery O2 Flow Rate FiO2 08/12/16 20:30 99.0 18 136/70 95 Room Air 08/12/16 15:00 88 08/11/16 09:00 2.0 Intake and Output 08/12/16 08/12/16 08/13/16 15:00 23:00 07:00 Intake Total 300 ml 580 ml 750 ml Output Total 3300 ml 20 ml Balance -3000 ml 580 ml 730 ml Exam Neck: No jvd Respiratory: clear to auscultation Cardiovascular: regular rate and rhythm Gastrointestinal: No distended, No tender Extremities: No edema Results Result Diagram: 08/12/16 0425 08/12/16 0425 Medications Medications Current Medications Ondansetron HCl (Zofran Tab) 4 mg Q6H PRN PO NAUSEA AND/OR VOMITING; Start at 13:30 Ondansetron HCl (Zofran Inj) 4 mg Q6H PRN IV NAUSEA AND/OR VOMITING; Start at 13:30 Metoclopramide HCl (Reglan) 10 mg Q6H PRN IV NAUSEA AND/OR VOMITING; Start at 13:30 Acetaminophen (Tylenol Tab) 650 mg Q6H PRN PO PAIN LEVEL 1-3 OR FEVER Last administered on 08/06/16 01:39; Admin Dose 650 MG; Start 08/05/16 at 13:30 Acetaminophen/ Hydrocodone Bitart ([place] (5/325)) 1 tab Q6H PRN PO MODERATE PAIN LEVEL 4-6 Last administered on 08/10/16 17:33; Admin Dose 1 TAB; Start at 13:30 Zolpidem Tartrate (Ambien) 5 mg QHS PRN PO SLEEP Last administered on 23:57; Admin Dose 5 MG; Start 08/05/16 at 13:30 Heparin Sodium (Porcine) (Heparin (5000 Units/0.5 ml)) 5,000 unit Q8 SC ; Start 08/05/16 at 14:00 Miscellaneous Information 1 ea NOTE XX ; Start 08/06/16 at 12:00 Glucose (Glutose) 15 gm Q15M PRN PO DECREASED GLUCOSE; Start 08/06/16 at 12:00 Glucose (Glutose) 22.5 gm Q15M PRN PO DECREASED GLUCOSE; Start 08/06/16 at 12: 00 Dextrose (D50w Syringe) 25 ml Q15M PRN IV DECREASED GLUCOSE; Start 08/06/16 at 12:00 Dextrose (D50w Syringe) 50 ml Q15M PRN IV DECREASED GLUCOSE; Start 08/06/16 at 12:00 Glucagon (Glucagen) 1 mg Q15M PRN IM DECREASED GLUCOSE; Start 08/06/16 at 12:00 Glucose (Glutose) 15 gm Q15M PRN BUCCAL DECREASED GLUCOSE; Start 08/06/16 at 12 :00 Morphine Sulfate (morphine) 4 mg Q4H PRN IV SEVERE PAIN LEVEL 7-10 Last administered on 08/12/16 22:16; Admin Dose 2 MG; Start 08/11/16 at 01:30 Pantoprazole (Protonix Tab) 40 mg DAILY@06 PO ; Start 08/13/16 at 06:00 Lisinopril (Zestril) 5 mg BID PO Last administered on 08/13/16 08:34; Admin Dose 5 MG; Start 08/12/16 at 21:00 Carvedilol (Coreg) 3.125 mg BID PO Last administered on 08/13/16 08:34; Admin Dose 3.125 MG; Start 08/12/16 at 21:00 Aspirin (Aspirin) 81 mg DAILY PO Last administered on 08/13/16 08:33; Admin Dose 81 MG; Start 08/13/16 at 09:00 Atorvastatin Calcium 20 mg 20 mg HS PO ; Start 08/12/16 at 21:00 Piperacillin Sod/ Tazobactam Sod (Zosyn 2.25gm/ 50ml (Pmx)) 50 ml @ 100 mls/hr Q8H IVPB Last administered on 08/13/16t 08:33; Admin Dose 100 MLS/HR; Start at 00:00 TASHA AYOUB MD Aug 13, 2016 08:54
[2016-08-13] MEDS: morphine 2 MG INJ IV PRN (11:31)
--- NOTE | 2016-08-13 15:00 | PN ---
Date/Time of Note Date/Time of Note DATE: 08/13/16 TIME: 15:00 Assessment/Plan Lines/Catheters IV Catheter Type (from Nrs): Saline Lock Lam in Place (from Nrs): No Assessment/Plan Chief Complaint/Hosp Course 1. Abdominal pain with mild leukocytosis and ultrasound findings are suggestive of mild symptomatic cholelithiasis and cholecystitis. MRCP noted. s /p 3 port lap difficult juanis 08/09. -antibiotics oral -drain -diet as tolerated -dc planning per primary 2. BMI 30. Encouraged nutritional optimization and exercise as tolerated. 3. Diabetes type 2. Continue the nutrition and medication control and encourage weight optimization. 4. Hypertension. Continue nutrition and medication control and encourage weight optimization. 5. Anemia without evidence of acute blood loss. Monitor. 6. End-stage renal disease on hemodialysis. 7. Cardiomyopathy with ejection fraction of 35%. Cardiology follow up. 8. Electrolyte abnormalities with hyponatremia and hypocalcemia. Please correct and replete as needed. 9. Non compliance with medication causing significant HTN -pt has been encouraged highly on daily basis to comply with medical treatments to optimize him for surgery Thank you Problems: Subjective 24 Hr Interval Summary s/p 3 port lap juanis 08/09. Pain improving. No f/c. No n/v. No cp/sob. No glass. No visual or neuro changes. No dysuria. No cough. No bloating. No bleeding. Exam/Review of Systems Vital Signs Vitals Vital Signs Date Time Temp Pulse Resp B/P Pulse Ox O2 Delivery O2 Flow Rate FiO2 08/12/16 20:30 99.0 18 136/70 95 Room Air 08/12/16 15:00 88 08/11/16 09:00 2.0 Intake and Output 08/12/16 08/12/16 08/13/16 14:59 22:59 06:59 Intake Total 880 ml 750 ml Output Total 3300 ml 20 ml Balance -2420 ml 730 ml Exam Free Text/Dictation GENERAL: No acute distress, obese, pleasant. HEENT: No scleral icterus. Mucous membranes are somewhat dry. NECK: Minimal JVD. No crepitus. Trachea midline. PULMONARY: Normal respiratory effort. No wheezing. CARDIAC: S1, S2 present. ABDOMEN: Soft, minimally tender. Drain. EXTREMITIES: Left BKA. No edema. VASCULAR: Cap refill less than 3 seconds. NEUROLOGIC: Alert, oriented, moves extremities grossly. Results Result Diagram: 08/12/16 0425 08/12/16 0425 ADOLFO SHERMAN MD Aug 13, 2016 15:00
[2016-08-13] MEDS: CIPROFLOXACIN 500 MG TAB PO SCH (18:41)
[2016-08-13 19:34] VITALS: BP 127/60; RESP 19
[2016-08-13] MEDS ORDERED: AMOXICILLIN/CLAV 875 MG TAB PO SCH (21:00)
[2016-08-13] MEDS: ATORVASTATIN 20 MG TAB PO SCH (21:00)
[2016-08-13] MEDS: metroNIDAZOLE 500 MG TAB PO SCH (22:01)
[2016-08-14] VITALS (7 sets, daily range): BP systolic 117–152; BP diastolic 59–79; PULSE 80–83; RESP 18
[2016-08-14] MEDS: PANTOPRAZOLE (EC) 40 MG TAB PO SCH (05:03)
[2016-08-14] MEDS: HYDROCODONE/APAP (5/325) TAB PO PRN ×2 (05:03→20:01)
[2016-08-14 05:08] LABS: ADD SCAN DIFF NO
[2016-08-14 05:19] LABS: BASOPHILS % 0.3 % (0.0-2.0); EOSINOPHILS # 0.5 10^3/ul (0.0-0.5); EOSINOPHILS % 5.1 % (0.0-7.0); HEMATOCRIT 31.6 % (42.0-52.0); LYMPHOCYTES # 1.6 10^3/ul (0.8-2.9); LYMPHOCYTES % 16.5 % (15.0-51.0); MEAN CORPUSCULAR HEMOGLOBIN 30.2 pg (29.0-33.0); MEAN CORPUSCULAR HGB CONC 31.6 g/dl (32.0-37.0); MEAN CORPUSCULAR VOLUME 95.5 fl (82.0-101.0); MEAN PLATELET VOLUME 9.9 fl (7.4-10.4); MONOCYTE # 0.7 10^3/ul (0.3-0.9); MONOCYTES % 6.8 % (0.0-11.0); NEUTROPHILS % 70.7 % (39.0-77.0); PLATELET COUNT 298 10^3/UL (140-415); RED BLOOD COUNT 3.31 10^6/ul (4.70-6.10); RED CELL DISTRIBUTION WIDTH 16.9 % (11.5-14.5)
[2016-08-14 05:23] LABS: ALBUMIN 3.7 g/dl (3.3-4.9); POTASSIUM 4.6 mmol/L (3.5-5.1)
[2016-08-14 05:26] LABS: ALBUMIN/GLOBULIN RATIO 0.78; CREATININE 10.58 mg/dl (0.61-1.24); TOTAL PROTEIN 8.4 g/dl (6.1-8.1)
[2016-08-14 05:27] LABS: CALCIUM 8.5 mg/dl (8.4-10.2)
[2016-08-14] MEDS: HEPARIN 5,000 UNIT/0.5 ML VIAL SC SCH ×3 (05:49→20:04)
[2016-08-14] MEDS: ACCU-CHEK XX SCH ×4 (07:20→20:04)
[2016-08-14] MEDS: INSULIN ASPART [NOVOLOG] 3 ML PEN SC SCH ×4 (07:50→20:03)
[2016-08-14] MEDS: SEVELAMER CARBONATE 0.8 GM PKT PO SCH ×3 (07:50→17:33)
--- NOTE | 2016-08-14 08:06 | PN ---
Date/Time of Note Date/Time of Note DATE: 08/14/16 TIME: 07:59 Assessment/Plan VTE Prophylaxis VTE Prophylaxis Intervention: other Lines/Catheters IV [facility]from [facility] Saline Lock Urinary Cath still in place: No Assessment/Plan Assessment/Plan 1. Post cholecystectomy with cont drainage, now on oral abx, I asked surgery to see for hopeful dc tomm 2. CKD, to be dialyzed today 3. DM, sugar control is acceptable 4. P is elevated, I added Fosrenol Subjective 24 Hr Interval Summary Respiratory: No cough, No shortness of breath Cardiovascular: No chest pain Gastrointestinal: other (drainage is moderate after drain removed-- serosanguinous and he has mild ruq discomfrt) Genitourinary: no complaints Exam/Review of Systems Vital Signs Vitals Vital Signs Date Time Temp Pulse Resp B/P Pulse Ox O2 Delivery O2 Flow Rate FiO2 08/13/16 19:34 98.5 89 19 127/60 96 08/12/16 20:30 Room Air 08/11/16 09:00 2.0 Intake and Output 08/13/16 08/13/16 08/14/16 15:00 23:00 07:00 Intake Total 50 ml 320 ml 850 ml Output Total 20 ml Balance 50 ml 300 ml 850 ml Exam Neck: No jvd Respiratory: clear to auscultation Cardiovascular: regular rate and rhythm Gastrointestinal: No tender (ruq, dressing noted--serosang drainage) Extremities: No edema Results Result Diagram: 08/14/16 0413 08/14/16 0413 Results 24 hrs Laboratory Tests Test 08/14/16 04:13 White Blood Count 10.0 # Red Blood Count 3.31 L Hemoglobin 10.0 L Hematocrit 31.6 L Mean Corpuscular Volume 95.5 Mean Corpuscular Hemoglobin 30.2 Mean Corpuscular Hemoglobin Concent 31.6 L Red Cell Distribution Width 16.9 H Platelet Count 298 Mean Platelet Volume 9.9 Neutrophils % 70.7 Lymphocytes % 16.5 Monocytes % 6.8 Eosinophils % 5.1 Basophils % 0.3 Nucleated Red Blood Cells % 0.0 Neutrophils # 7.0 Lymphocytes # 1.6 Monocytes # 0.7 Eosinophils # 0.5 Basophils # 0.0 Nucleated Red Blood Cells # 0.0 Sodium Level 141 Potassium Level 4.6 Chloride Level 97 Carbon Dioxide Level 24 Anion Gap 25 H Blood Urea Nitrogen 45 #H Creatinine 10.58 H Glucose Level 100 Calcium Level 8.5 Phosphorus Level 9.7 H Total Bilirubin 0.0 L Direct Bilirubin 0.00 Indirect Bilirubin 0.0 Aspartate Amino Transf (AST/SGOT) 20 Alanine Aminotransferase (ALT/SGPT) 17 Alkaline Phosphatase 91 Total Protein 8.4 H Albumin 3.7 Globulin 4.70 H Albumin/Globulin Ratio 0.78 Medications Medications Current Medications Ondansetron HCl (Zofran Tab) 4 mg Q6H PRN PO NAUSEA AND/OR VOMITING; Start at 13:30 Ondansetron HCl (Zofran Inj) 4 mg Q6H PRN IV NAUSEA AND/OR VOMITING; Start at 13:30 Metoclopramide HCl (Reglan) 10 mg Q6H PRN IV NAUSEA AND/OR VOMITING; Start at 13:30 Acetaminophen (Tylenol Tab) 650 mg Q6H PRN PO PAIN LEVEL 1-3 OR FEVER Last administered on 08/06/16 01:39; Admin Dose 650 MG; Start 08/05/16 at 13:30 Acetaminophen/ Hydrocodone Bitart ([place] (5/325)) 1 tab Q6H PRN PO MODERATE PAIN LEVEL 4-6 Last administered on 08/14/16 05:03; Admin Dose 1 TAB; Start at 13:30 Zolpidem Tartrate (Ambien) 5 mg QHS PRN PO SLEEP Last administered on 23:57; Admin Dose 5 MG; Start 08/05/16 at 13:30 Heparin Sodium (Porcine) (Heparin (5000 Units/0.5 ml)) 5,000 unit Q8 SC ; Start 08/05/16 at 14:00 Miscellaneous Information 1 ea NOTE XX ; Start 08/06/16 at 12:00 Glucose (Glutose) 15 gm Q15M PRN PO DECREASED GLUCOSE; Start 08/06/16 at 12:00 Glucose (Glutose) 22.5 gm Q15M PRN PO DECREASED GLUCOSE; Start 08/06/16 at 12: 00 Dextrose (D50w Syringe) 25 ml Q15M PRN IV DECREASED GLUCOSE; Start 08/06/16 at 12:00 Dextrose (D50w Syringe) 50 ml Q15M PRN IV DECREASED GLUCOSE; Start 08/06/16 at 12:00 Glucagon (Glucagen) 1 mg Q15M PRN IM DECREASED GLUCOSE; Start 08/06/16 at 12:00 Glucose (Glutose) 15 gm Q15M PRN BUCCAL DECREASED GLUCOSE; Start 08/06/16 at 12 :00 Morphine Sulfate (morphine) 4 mg Q4H PRN IV SEVERE PAIN LEVEL 7-10 Last administered on 08/13/16 11:31; Admin Dose 4 MG; Start 08/11/16 at 01:30 Pantoprazole (Protonix Tab) 40 mg DAILY@06 PO Last administered on 08/14/16 05 :03; Admin Dose 40 MG; Start 08/13/16 at 06:00 Lisinopril (Zestril) 5 mg BID PO Last administered on 08/13/16 08:34; Admin Dose 5 MG; Start 08/12/16 at 21:00 Carvedilol (Coreg) 3.125 mg BID PO Last administered on 08/13/16 08:34; Admin Dose 3.125 MG; Start 08/12/16 at 21:00 Aspirin (Aspirin) 81 mg DAILY PO Last administered on 08/13/16 08:33; Admin Dose 81 MG; Start 08/13/16 at 09:00 Atorvastatin Calcium (Lipitor) 20 mg HS PO ; Start 08/12/16 at 21:00 Ciprofloxacin (Cipro) 500 mg Q24H PO Last administered on 08/13/16 18:41; Admin Dose 500 MG; Start 08/13/16 at 18:00 Metronidazole (Flagyl) 500 mg TID PO Last administered on 08/13/16 22:01; Admin Dose 500 MG; Start 08/13/16 at 21:00 TASHA AYOUB MD Aug 14, 2016 08:06
[2016-08-14] MEDS: ASPIRIN 81 MG TAB PO SCH (09:00)
[2016-08-14] MEDS: LISINOPRIL 5 MG TAB PO SCH ×2 (09:00→20:03)
[2016-08-14] MEDS: metroNIDAZOLE 500 MG TAB PO SCH ×3 (09:52→20:01)
[2016-08-14] MEDS: LANTHANUM 500 MG CHEW PO SCH ×2 (12:31→17:33)
--- NOTE | 2016-08-14 13:01 | CONS ---
Date/Time of Note Date/Time of Note DATE: 08/14/16 TIME: 12:59 Assessment/Plan Assessment/Plan Additional Assessment/Plan Nonischemic cardiomyopathy with ejection fraction 35% Compensated systolic congestive heart failure End-stage renal disease on hemodialysis Peripheral arterial disease Hypertension Status post cholecystectomy -Blood pressure trend overall improved. Patient with bleeding from incision site, aspirin could be held if needed. Continue beta-lebron and UBALDO inhibitor as blood pressure and heart rate permits Consultation Date/Type/Reason Admit Date/Time Aug 07, 2016 at 09:20 Type of Consultation: cv 24 HR Interval Summary Free Text/Dictation Denies chest pain, shortness of breath Exam/Review of Systems Vital Signs Vitals Vital Signs Date Time Temp Pulse Resp B/P Pulse Ox O2 Delivery O2 Flow Rate FiO2 08/14/16 07:00 98.6 79 18 132/79 96 08/12/16 20:30 Room Air 08/11/16 09:00 2.0 Intake and Output 08/13/16 08/13/16 08/14/16 15:00 23:00 07:00 Intake Total 50 ml 320 ml 850 ml Output Total 20 ml Balance 50 ml 300 ml 850 ml Exam No apparent distress Constitutional: alert, oriented Head: normocephalic Neck: supple Respiratory: other (Coarse breath sounds bilaterally, no wheezing) Cardiovascular: other (S1-S2 heard), regular rate and rhythm Gastrointestinal: bowel sounds, non-tender, other (Bandages), soft Extremities: other (Amputation) Results Result Diagram: 08/14/16 0413 08/14/16 0413 Results 24 hrs Laboratory Tests Test 08/14/16 04:13 White Blood Count 10.0 # Red Blood Count 3.31 L Hemoglobin 10.0 L Hematocrit 31.6 L Mean Corpuscular Volume 95.5 Mean Corpuscular Hemoglobin 30.2 Mean Corpuscular Hemoglobin Concent 31.6 L Red Cell Distribution Width 16.9 H Platelet Count 298 Mean Platelet Volume 9.9 Neutrophils % 70.7 Lymphocytes % 16.5 Monocytes % 6.8 Eosinophils % 5.1 Basophils % 0.3 Nucleated Red Blood Cells % 0.0 Neutrophils # 7.0 Lymphocytes # 1.6 Monocytes # 0.7 Eosinophils # 0.5 Basophils # 0.0 Nucleated Red Blood Cells # 0.0 Sodium Level 141 Potassium Level 4.6 Chloride Level 97 Carbon Dioxide Level 24 Anion Gap 25 H Blood Urea Nitrogen 45 #H Creatinine 10.58 H Glucose Level 100 Calcium Level 8.5 Phosphorus Level 9.7 H Total Bilirubin 0.0 L Direct Bilirubin 0.00 Indirect Bilirubin 0.0 Aspartate Amino Transf (AST/SGOT) 20 Alanine Aminotransferase (ALT/SGPT) 17 Alkaline Phosphatase 91 Total Protein 8.4 H Albumin 3.7 Globulin 4.70 H Albumin/Globulin Ratio 0.78 Medications Medications Current Medications Ondansetron HCl (Zofran Tab) 4 mg Q6H PRN PO NAUSEA AND/OR VOMITING; Start at 13:30 Ondansetron HCl (Zofran Inj) 4 mg Q6H PRN IV NAUSEA AND/OR VOMITING; Start at 13:30 Metoclopramide HCl (Reglan) 10 mg Q6H PRN IV NAUSEA AND/OR VOMITING; Start at 13:30 Acetaminophen (Tylenol Tab) 650 mg Q6H PRN PO PAIN LEVEL 1-3 OR FEVER Last administered on 08/06/16 01:39; Admin Dose 650 MG; Start 08/05/16 at 13:30 Acetaminophen/ Hydrocodone Bitart ([place] (5/325)) 1 tab Q6H PRN PO MODERATE PAIN LEVEL 4-6 Last administered on 08/14/16 05:03; Admin Dose 1 TAB; Start at 13:30 Zolpidem Tartrate (Ambien) 5 mg QHS PRN PO SLEEP Last administered on 23:57; Admin Dose 5 MG; Start 08/05/16 at 13:30 Heparin Sodium (Porcine) (Heparin (5000 Units/0.5 ml)) 5,000 unit Q8 SC ; Start 08/05/16 at 14:00 Miscellaneous Information 1 ea NOTE XX ; Start 08/06/16 at 12:00 Glucose (Glutose) 15 gm Q15M PRN PO DECREASED GLUCOSE; Start 08/06/16 at 12:00 Glucose (Glutose) 22.5 gm Q15M PRN PO DECREASED GLUCOSE; Start 08/06/16 at 12: 00 Dextrose (D50w Syringe) 25 ml Q15M PRN IV DECREASED GLUCOSE; Start 08/06/16 at 12:00 Dextrose (D50w Syringe) 50 ml Q15M PRN IV DECREASED GLUCOSE; Start 08/06/16 at 12:00 Glucagon (Glucagen) 1 mg Q15M PRN IM DECREASED GLUCOSE; Start 08/06/16 at 12:00 Glucose (Glutose) 15 gm Q15M PRN BUCCAL DECREASED GLUCOSE; Start 08/06/16 at 12 :00 Morphine Sulfate (morphine) 4 mg Q4H PRN IV SEVERE PAIN LEVEL 7-10 Last administered on 08/13/16 11:31; Admin Dose 4 MG; Start 08/11/16 at 01:30 Pantoprazole (Protonix Tab) 40 mg DAILY@06 PO Last administered on 08/14/16 05 :03; Admin Dose 40 MG; Start 08/13/16 at 06:00 Lisinopril (Zestril) 5 mg BID PO Last administered on 08/13/16 08:34; Admin Dose 5 MG; Start 08/12/16 at 21:00 Carvedilol (Coreg) 3.125 mg BID PO Last administered on 08/13/16 08:34; Admin Dose 3.125 MG; Start 08/12/16 at 21:00 Aspirin (Aspirin) 81 mg DAILY PO Last administered on 08/13/16 08:33; Admin Dose 81 MG; Start 08/13/16 at 09:00 Atorvastatin Calcium (Lipitor) 20 mg HS PO ; Start 08/12/16 at 21:00 Ciprofloxacin (Cipro) 500 mg Q24H PO Last administered on 08/13/16 18:41; Admin Dose 500 MG; Start 08/13/16 at 18:00 Metronidazole (Flagyl) 500 mg TID PO Last administered on 08/14/16 09:52; Admin Dose 500 MG; Start 08/13/16 at 21:00 Benjamin Lal DO Aug 14, 2016 13:00
[2016-08-14] MEDS: CIPROFLOXACIN 500 MG TAB PO SCH (17:33)
[2016-08-14] MEDS: ATORVASTATIN 20 MG TAB PO SCH (20:03)
[2016-08-15 03:08] VITALS: BP 132/77; RESP 18
[2016-08-15] MEDS: HEPARIN 5,000 UNIT/0.5 ML VIAL SC SCH ×3 (04:47→21:17)
[2016-08-15] MEDS: PANTOPRAZOLE (EC) 40 MG TAB PO SCH (05:02)
[2016-08-15] MEDS: HYDROCODONE/APAP (5/325) TAB PO PRN ×3 (05:02→21:14)
[2016-08-15 05:09] LABS: ADD SCAN DIFF NO
[2016-08-15 05:20] LABS: BASOPHILS % 0.5 % (0.0-2.0); EOSINOPHILS # 0.3 10^3/ul (0.0-0.5); EOSINOPHILS % 3.9 % (0.0-7.0); HEMATOCRIT 28.1 % (42.0-52.0); HEMOGLOBIN 8.9 g/dl (14.0-18.0); LYMPHOCYTES # 1.5 10^3/ul (0.8-2.9); LYMPHOCYTES % 19.9 % (15.0-51.0); MEAN CORPUSCULAR HGB CONC 31.7 g/dl (32.0-37.0); MEAN CORPUSCULAR VOLUME 94.6 fl (82.0-101.0); MEAN PLATELET VOLUME 10.2 fl (7.4-10.4); MONOCYTE # 0.7 10^3/ul (0.3-0.9); NEUTROPHIL # 5.1 10^3/ul (1.6-7.5); NEUTROPHILS % 66.1 % (39.0-77.0); PLATELET COUNT 274 10^3/UL (140-415); RED BLOOD COUNT 2.97 10^6/ul (4.70-6.10); WHITE BLOOD COUNT 7.8 10^3/ul (4.8-10.8)
[2016-08-15] MEDS: ACCU-CHEK XX SCH ×4 (07:20→21:00)
--- NOTE | 2016-08-15 07:49 | PN ---
Date/Time of Note Date/Time of Note DATE: 08/14/16 TIME: 13:46 Assessment/Plan Lines/Catheters IV Catheter Type (from Nrs): Saline Lock Lam in Place (from Nrs): No Assessment/Plan Chief Complaint/Hosp Course 1. Abdominal pain symptomatic cholelithiasis and cholecystitis s/p 3 port lap difficult juanis 08/09. Drain site bleeding > seems to be stable with pressure dressing. -antibiotics oral -monitor drain site -diet as tolerated 2. BMI 30. Encouraged nutritional optimization and exercise as tolerated. 3. Diabetes type 2. Continue the nutrition and medication control and encourage weight optimization. 4. Hypertension. Continue nutrition and medication control and encourage weight optimization. 5. Anemia without evidence of acute blood loss. Monitor. 6. End-stage renal disease on hemodialysis. 7. Cardiomyopathy with ejection fraction of 35%. Cardiology follow up. 8. Electrolyte abnormalities with hyponatremia and hypocalcemia. Please correct and replete as needed. 9. Non compliance with medication causing significant HTN -pt has been encouraged highly on daily basis to comply with medical treatments to optimize him for surgery Thank you Late entry 08/14 Problems: Subjective 24 Hr Interval Summary s/p 3 port lap juanis 08/09. Leak at drain site. Pain improving. No f/c. No n/ v. No cp/sob. No glass. No visual or neuro changes. No dysuria. No cough. No bloating. Exam/Review of Systems Vital Signs Vitals Vital Signs Date Time Temp Pulse Resp B/P Pulse Ox O2 Delivery O2 Flow Rate FiO2 08/15/16 03:08 98.1 85 18 132/77 99 08/12/16 20:30 Room Air 08/11/16 09:00 2.0 Intake and Output 08/14/16 08/14/16 08/15/16 15:00 23:00 07:00 Intake Total 760 ml 900 ml Output Total 3000 ml 0 ml Balance -2240 ml 900 ml Exam Free Text/Dictation GENERAL: No acute distress, obese, pleasant. HEENT: No scleral icterus. Mucous membranes are somewhat dry. NECK: Minimal JVD. No crepitus. Trachea midline. PULMONARY: Normal respiratory effort. No wheezing. CARDIAC: S1, S2 present. ABDOMEN: Soft, minimally tender. [place] dc at drain site. EXTREMITIES: Left BKA. No edema. VASCULAR: Cap refill less than 3 seconds. NEUROLOGIC: Alert, oriented, moves extremities grossly. Results Result Diagram: 08/15/16 0425 08/14/16 0413 ADOLFO SHERMAN MD Aug 15, 2016 07:49
[2016-08-15] MEDS: INSULIN ASPART [NOVOLOG] 3 ML PEN SC SCH (07:50)
[2016-08-15] MEDS: SEVELAMER CARBONATE 0.8 GM PKT PO SCH ×3 (07:50→17:55)
[2016-08-15] MEDS: ASPIRIN 81 MG TAB PO SCH (09:00)
[2016-08-15 10:01] VITALS: BP 141/65; PULSE 75; RESP 18
[2016-08-15] MEDS: LISINOPRIL 5 MG TAB PO SCH ×2 (10:02→21:00)
[2016-08-15] MEDS: metroNIDAZOLE 500 MG TAB PO SCH ×3 (10:02→21:13)
[2016-08-15] MEDS: LANTHANUM 500 MG CHEW PO SCH ×3 (10:03→17:55)
[2016-08-15] MEDS ORDERED: LIDOCAINE 2%/EPI (MDV) 20ML INJ INJ ONE (11:00)
--- NOTE | 2016-08-15 11:06 | PN ---
Date/Time of Note Date/Time of Note DATE: 08/15/16 TIME: 11:04 Assessment/Plan VTE Prophylaxis VTE Prophylaxis Intervention: other Lines/Catheters IV Catheter Type (from Nrs): Saline Lock Urinary Cath still in place: No Assessment/Plan Assessment/Plan 1. Post op cholecystectomy, mod drainage, await surgery follow up==re dc 2. CKD, will plan on hd tomm 3. DM, sugars have been nl, no need for ac insulin coverage Subjective 24 Hr Interval Summary Respiratory: No cough, No shortness of breath Cardiovascular: No chest pain Gastrointestinal: other (moderate drainage per pt and mild right upper quad discomfort) Genitourinary: no complaints Musculoskeletal: no complaints Exam/Review of Systems Vital Signs Vitals Vital Signs Date Time Temp Pulse Resp B/P Pulse Ox O2 Delivery O2 Flow Rate FiO2 08/15/16 03:08 98.1 85 18 132/77 99 08/12/16 20:30 Room Air 08/11/16 09:00 2.0 Intake and Output 08/14/16 08/14/16 08/15/16 15:00 23:00 07:00 Intake Total 760 ml 900 ml Output Total 3000 ml 0 ml Balance -2240 ml 900 ml Exam Neck: No jvd Respiratory: clear to auscultation Cardiovascular: regular rate and rhythm Gastrointestinal: other (slight right upper quad tend) Results Result Diagram: 08/15/16 0425 08/14/16 0413 Results 24 hrs Laboratory Tests Test 08/15/16 04:25 White Blood Count 7.8 # Red Blood Count 2.97 L Hemoglobin 8.9 L Hematocrit 28.1 L Mean Corpuscular Volume 94.6 Mean Corpuscular Hemoglobin 30.0 Mean Corpuscular Hemoglobin Concent 31.7 L Red Cell Distribution Width 17.0 H Platelet Count 274 Mean Platelet Volume 10.2 Neutrophils % 66.1 Lymphocytes % 19.9 Monocytes % 9.0 Eosinophils % 3.9 Basophils % 0.5 Nucleated Red Blood Cells % 0.0 Neutrophils # 5.1 Lymphocytes # 1.5 Monocytes # 0.7 Eosinophils # 0.3 Basophils # 0.0 Nucleated Red Blood Cells # 0.0 Medications Medications Current Medications Ondansetron HCl (Zofran Tab) 4 mg Q6H PRN PO NAUSEA AND/OR VOMITING; Start at 13:30 Ondansetron HCl (Zofran Inj) 4 mg Q6H PRN IV NAUSEA AND/OR VOMITING; Start at 13:30 Metoclopramide HCl (Reglan) 10 mg Q6H PRN IV NAUSEA AND/OR VOMITING; Start at 13:30 Acetaminophen (Tylenol Tab) 650 mg Q6H PRN PO PAIN LEVEL 1-3 OR FEVER Last administered on 08/06/16 01:39; Admin Dose 650 MG; Start 08/05/16 at 13:30 Acetaminophen/ Hydrocodone Bitart ([place] (5/325)) 1 tab Q6H PRN PO MODERATE PAIN LEVEL 4-6 Last administered on 08/15/16 05:02; Admin Dose 1 TAB; Start at 13:30 Zolpidem Tartrate (Ambien) 5 mg QHS PRN PO SLEEP Last administered on 23:57; Admin Dose 5 MG; Start 08/05/16 at 13:30 Heparin Sodium (Porcine) (Heparin (5000 Units/0.5 ml)) 5,000 unit Q8 SC ; Start 08/05/16 at 14:00 Miscellaneous Information 1 ea NOTE XX ; Start 08/06/16 at 12:00 Glucose (Glutose) 15 gm Q15M PRN PO DECREASED GLUCOSE; Start 08/06/16 at 12:00 Glucose (Glutose) 22.5 gm Q15M PRN PO DECREASED GLUCOSE; Start 08/06/16 at 12: 00 Dextrose (D50w Syringe) 25 ml Q15M PRN IV DECREASED GLUCOSE; Start 08/06/16 at 12:00 Dextrose (D50w Syringe) 50 ml Q15M PRN IV DECREASED GLUCOSE; Start 08/06/16 at 12:00 Glucagon (Glucagen) 1 mg Q15M PRN IM DECREASED GLUCOSE; Start 08/06/16 at 12:00 Glucose (Glutose) 15 gm Q15M PRN BUCCAL DECREASED GLUCOSE; Start 08/06/16 at 12 :00 Morphine Sulfate (morphine) 4 mg Q4H PRN IV SEVERE PAIN LEVEL 7-10 Last administered on 08/13/16 11:31; Admin Dose 4 MG; Start 08/11/16 at 01:30 Pantoprazole (Protonix Tab) 40 mg DAILY@06 PO Last administered on 08/15/16 05 :02; Admin Dose 40 MG; Start 08/13/16 at 06:00 Lisinopril (Zestril) 5 mg BID PO Last administered on 08/15/16 10:02; Admin Dose 5 MG; Start 08/12/16 at 21:00 Carvedilol (Coreg) 3.125 mg BID PO Last administered on 08/15/16 10:02; Admin Dose 3.125 MG; Start 08/12/16 at 21:00 Aspirin (Aspirin) 81 mg DAILY PO Last administered on 08/13/16 08:33; Admin Dose 81 MG; Start 08/13/16 at 09:00 Atorvastatin Calcium (Lipitor) 20 mg HS PO ; Start 08/12/16 at 21:00 Ciprofloxacin (Cipro) 500 mg Q24H PO Last administered on 08/14/16 17:33; Admin Dose 500 MG; Start 08/13/16 at 18:00 Metronidazole (Flagyl) 500 mg TID PO Last administered on 08/15/16 10:02; Admin Dose 500 MG; Start 08/13/16 at 21:00 TASHA AYOUB MD Aug 15, 2016 11:06
[2016-08-15] MEDS ORDERED: SILVER NITRATE SWAB TOP ONE (13:30)
--- NOTE | 2016-08-15 14:34 | CONS ---
Date/Time of Note Date/Time of Note DATE: 08/15/16 TIME: 14:33 Assessment/Plan Assessment/Plan Additional Assessment/Plan Nonischemic cardiomyopathy with ejection fraction 35% Compensated systolic congestive heart failure End-stage renal disease on hemodialysis Peripheral arterial disease Hypertension Status post cholecystectomy -Blood pressure trend overall improved. Patient with bleeding from abdominal incision site, aspirin could be held if needed. Continue beta-lebron and UBALDO inhibitor as blood pressure and heart rate permits Consultation Date/Type/Reason Admit Date/Time Aug 07, 2016 at 09:20 Type of Consultation: cv 24 HR Interval Summary Free Text/Dictation Denies chest pain, shortness of breath, still with bleeding from abdominal incision site Exam/Review of Systems Vital Signs Vitals Vital Signs Date Time Temp Pulse Resp B/P Pulse Ox O2 Delivery O2 Flow Rate FiO2 08/15/16 03:08 98.1 85 18 132/77 99 08/12/16 20:30 Room Air 08/11/16 09:00 2.0 Intake and Output 08/14/16 08/14/16 08/15/16 15:00 23:00 07:00 Intake Total 760 ml 900 ml Output Total 3000 ml 0 ml Balance -2240 ml 900 ml Exam No apparent distress Constitutional: alert, oriented Head: normocephalic Neck: supple Respiratory: other (Coarse breath sounds bilaterally, no wheezing) Cardiovascular: other (S1-S2 heard), regular rate and rhythm Gastrointestinal: bowel sounds, non-tender, other (Bandage right lower quadrant ), soft Extremities: edema (Trace) Results Result Diagram: 08/15/16 0425 08/14/16 0413 Results 24 hrs Laboratory Tests Test 08/15/16 04:25 White Blood Count 7.8 # Red Blood Count 2.97 L Hemoglobin 8.9 L Hematocrit 28.1 L Mean Corpuscular Volume 94.6 Mean Corpuscular Hemoglobin 30.0 Mean Corpuscular Hemoglobin Concent 31.7 L Red Cell Distribution Width 17.0 H Platelet Count 274 Mean Platelet Volume 10.2 Neutrophils % 66.1 Lymphocytes % 19.9 Monocytes % 9.0 Eosinophils % 3.9 Basophils % 0.5 Nucleated Red Blood Cells % 0.0 Neutrophils # 5.1 Lymphocytes # 1.5 Monocytes # 0.7 Eosinophils # 0.3 Basophils # 0.0 Nucleated Red Blood Cells # 0.0 Medications Medications Current Medications Ondansetron HCl (Zofran Tab) 4 mg Q6H PRN PO NAUSEA AND/OR VOMITING; Start at 13:30 Ondansetron HCl (Zofran Inj) 4 mg Q6H PRN IV NAUSEA AND/OR VOMITING; Start at 13:30 Metoclopramide HCl (Reglan) 10 mg Q6H PRN IV NAUSEA AND/OR VOMITING; Start at 13:30 Acetaminophen (Tylenol Tab) 650 mg Q6H PRN PO PAIN LEVEL 1-3 OR FEVER Last administered on 08/06/16 01:39; Admin Dose 650 MG; Start 08/05/16 at 13:30 Acetaminophen/ Hydrocodone Bitart ([place] (5/325)) 1 tab Q6H PRN PO MODERATE PAIN LEVEL 4-6 Last administered on 08/15/16 12:33; Admin Dose 1 TAB; Start at 13:30 Zolpidem Tartrate (Ambien) 5 mg QHS PRN PO SLEEP Last administered on 23:57; Admin Dose 5 MG; Start 08/05/16 at 13:30 Heparin Sodium (Porcine) (Heparin (5000 Units/0.5 ml)) 5,000 unit Q8 SC ; Start 08/05/16 at 14:00 Miscellaneous Information 1 ea NOTE XX ; Start 08/06/16 at 12:00 Morphine Sulfate (morphine) 4 mg Q4H PRN IV SEVERE PAIN LEVEL 7-10 Last administered on 08/13/16 11:31; Admin Dose 4 MG; Start 08/11/16 at 01:30 Pantoprazole (Protonix Tab) 40 mg DAILY@06 PO Last administered on 08/15/16 05 :02; Admin Dose 40 MG; Start 08/13/16 at 06:00 Lisinopril (Zestril) 5 mg BID PO Last administered on 08/15/16 10:02; Admin Dose 5 MG; Start 08/12/16 at 21:00 Carvedilol (Coreg) 3.125 mg BID PO Last administered on 08/15/16 10:02; Admin Dose 3.125 MG; Start 08/12/16 at 21:00 Aspirin (Aspirin) 81 mg DAILY PO Last administered on 08/13/16 08:33; Admin Dose 81 MG; Start 08/13/16 at 09:00 Atorvastatin Calcium (Lipitor) 20 mg HS PO ; Start 08/12/16 at 21:00 Ciprofloxacin (Cipro) 500 mg Q24H PO Last administered on 08/14/16 17:33; Admin Dose 500 MG; Start 08/13/16 at 18:00 Metronidazole (Flagyl) 500 mg TID PO Last administered on 08/15/16 12:32; Admin Dose 500 MG; Start 08/13/16 at 21:00 Benjamin Lal DO Aug 15, 2016 14:34
[2016-08-15] MEDS: CIPROFLOXACIN 500 MG TAB PO SCH (18:20)
[2016-08-15 20:16] VITALS: BP 146/67; RESP 18
--- NOTE | 2016-08-15 20:22 | PN ---
Date/Time of Note Date/Time of Note DATE: 08/15/16 TIME: 20:21 Assessment/Plan Lines/Catheters IV Catheter Type (from Nrs): Saline Lock Lam in Place (from Nrs): No Assessment/Plan Chief Complaint/Hosp Course 1. Abdominal pain symptomatic cholelithiasis and cholecystitis s/p 3 port lap difficult juanis 08/09. Drain site bleeding. -suture repair of drain site to control bleeding -antibiotics oral -diet as tolerated 2. BMI 30. Encouraged nutritional optimization and exercise as tolerated. 3. Diabetes type 2. Continue the nutrition and medication control and encourage weight optimization. 4. Hypertension. Continue nutrition and medication control and encourage weight optimization. 5. Anemia without evidence of acute blood loss. Monitor. 6. End-stage renal disease on hemodialysis. 7. Cardiomyopathy with ejection fraction of 35%. Cardiology follow up. 8. Electrolyte abnormalities with hyponatremia and hypocalcemia. Please correct and replete as needed. 9. Non compliance with medication causing significant HTN -pt has been encouraged highly on daily basis to comply with medical treatments to optimize him for surgery Thank you Problems: Subjective 24 Hr Interval Summary s/p 3 port lap juanis 08/09. Leak at drain site. Pain improving. No f/c. No n/ v. No cp/sob. No glass. No visual or neuro changes. No dysuria. No cough. No bloating. Exam/Review of Systems Vital Signs Vitals Vital Signs Date Time Temp Pulse Resp B/P Pulse Ox O2 Delivery O2 Flow Rate FiO2 08/15/16 20:16 97.0 90 18 146/67 99 08/15/16 10:01 Room Air 08/11/16 09:00 2.0 Intake and Output 08/14/16 08/14/16 08/15/16 15:00 23:00 07:00 Intake Total 760 ml 900 ml Output Total 3000 ml 0 ml Balance -2240 ml 900 ml Exam Free Text/Dictation GENERAL: No acute distress, obese, pleasant. HEENT: No scleral icterus. Mucous membranes are somewhat dry. NECK: Minimal JVD. No crepitus. Trachea midline. PULMONARY: Normal respiratory effort. No wheezing. CARDIAC: S1, S2 present. ABDOMEN: Soft, minimally tender. Sang dc at drain site. EXTREMITIES: Left BKA. No edema. VASCULAR: Cap refill less than 3 seconds. NEUROLOGIC: Alert, oriented, moves extremities grossly. Results Result Diagram: 08/15/16 0425 08/14/16 0413 ADOLFO SHERMAN MD Aug 15, 2016 20:22
--- NOTE | 2016-08-15 20:25 | OPR ---
Date/Time of Note Date/Time of Note DATE: 08/15/16 TIME: 20:22 Operative Report Procedure Date: Aug 09, 2016 Preoperative Diagnosis Right abdominal drain site wound active bleed Postoperative Diagnosis Same Operation Performed 1. Suture repair of abdominal wound and control of bleeding 2. Local anesthetic injection Surgeon: ADOLFO SHERMAN MD Anesthesia: other (Local) Estimated Blood Loss: minimal Specimens None Tubes/Drains 3-0 nylon Complications: None Pt Condition Post Procedure: stable Disposition: other (own room) Indications Per notes Risks benefits alternatives were fully reviewed with patient as per usual and customary Procedure Description Patient was placed supine in his bed. Area was prepped and draped sterilely. Timeout was performed. Local anesthetic was injected at the surgical site. 3-0 nylon was used to ligate bleeding and closed the wound in a [id number] manner. There was complete hemostasis. Dressing was applied. Patient tolerated procedure well. ADOLFO SHERMAN MD Aug 15, 2016 20:25
[2016-08-15] MEDS: ATORVASTATIN 20 MG TAB PO SCH (21:00)
[2016-08-16] VITALS (8 sets, daily range): BP systolic 118–185; BP diastolic 65–78; PULSE 82–88; RESP 18
[2016-08-16] MEDS: PANTOPRAZOLE (EC) 40 MG TAB PO SCH (05:05)
[2016-08-16] MEDS: HEPARIN 5,000 UNIT/0.5 ML VIAL SC SCH ×2 (05:05→14:00)
[2016-08-16 05:20] LABS: ADD SCAN DIFF NO
[2016-08-16 05:26] LABS: BASOPHILS % 0.4 % (0.0-2.0); EOSINOPHILS # 0.3 10^3/ul (0.0-0.5); EOSINOPHILS % 3.9 % (0.0-7.0); HEMATOCRIT 25.3 % (42.0-52.0); HEMOGLOBIN 8.4 g/dl (14.0-18.0); LYMPHOCYTES # 1.5 10^3/ul (0.8-2.9); LYMPHOCYTES % 21.2 % (15.0-51.0); MEAN CORPUSCULAR HEMOGLOBIN 31.2 pg (29.0-33.0); MEAN CORPUSCULAR HGB CONC 33.2 g/dl (32.0-37.0); MEAN CORPUSCULAR VOLUME 94.1 fl (82.0-101.0); MEAN PLATELET VOLUME 10.2 fl (7.4-10.4); MONOCYTE # 0.6 10^3/ul (0.3-0.9); MONOCYTES % 8.9 % (0.0-11.0); NEUTROPHIL # 4.5 10^3/ul (1.6-7.5); NEUTROPHILS % 64.9 % (39.0-77.0); PLATELET COUNT 265 10^3/UL (140-415); RED BLOOD COUNT 2.69 10^6/ul (4.70-6.10)
[2016-08-16] MEDS: HYDROCODONE/APAP (5/325) TAB PO PRN (06:24)
[2016-08-16] MEDS: ACCU-CHEK XX SCH (07:20)
[2016-08-16] MEDS: LANTHANUM 500 MG CHEW PO SCH ×2 (07:50→11:40)
[2016-08-16] MEDS: SEVELAMER CARBONATE 0.8 GM PKT PO SCH ×2 (07:50→11:40)
[2016-08-16] MEDS: LISINOPRIL 5 MG TAB PO SCH (08:21)
[2016-08-16] MEDS: metroNIDAZOLE 500 MG TAB PO SCH ×2 (08:57→14:06)
[2016-08-16] MEDS: ASPIRIN 81 MG TAB PO SCH (09:00)
--- NOTE | 2016-08-16 10:17 | PN ---
Date/Time of Note Date/Time of Note DATE: 08/16/16 TIME: 10:15 Assessment/Plan VTE Prophylaxis VTE Prophylaxis Intervention: other Lines/Catheters IV Catheter Type (from Nrs): Saline Lock Urinary Cath still in place: No Assessment/Plan Assessment/Plan 1. Stable post op cholecystectomy, rev with surg yesterday, cab dc today 2. ESRD, dialyzing today 3. Anemia, will resume procrit today Subjective 24 Hr Interval Summary Respiratory: No shortness of breath Cardiovascular: No chest pain Gastrointestinal: pain (very mild right upper quad pain) Genitourinary: no complaints Exam/Review of Systems Vital Signs Vitals Vital Signs Date Time Temp Pulse Resp B/P Pulse Ox O2 Delivery O2 Flow Rate FiO2 08/16/16 08:13 98.2 83 18 178/71 97 08/15/16 10:01 Room Air Intake and Output 08/15/16 08/15/16 08/16/16 15:00 23:00 07:00 Intake Total 300 ml 490 ml Balance 300 ml 490 ml Exam Neck: No jvd Respiratory: clear to auscultation Cardiovascular: regular rate and rhythm Gastrointestinal: soft (sl right upper quad tend) Extremities: No edema Results Result Diagram: 08/16/16 0436 08/14/16 0413 Results 24 hrs Laboratory Tests Test 08/15/16 16:14 08/16/16 04:36 Bedside Glucose 133 White Blood Count 7.0 Red Blood Count 2.69 L Hemoglobin 8.4 L Hematocrit 25.3 L Mean Corpuscular Volume 94.1 Mean Corpuscular Hemoglobin 31.2 Mean Corpuscular Hemoglobin Concent 33.2 Red Cell Distribution Width 17.0 H Platelet Count 265 Mean Platelet Volume 10.2 Neutrophils % 64.9 Lymphocytes % 21.2 Monocytes % 8.9 Eosinophils % 3.9 Basophils % 0.4 Nucleated Red Blood Cells % 0.0 Neutrophils # 4.5 Lymphocytes # 1.5 Monocytes # 0.6 Eosinophils # 0.3 Basophils # 0.0 Nucleated Red Blood Cells # 0.0 Medications Medications Current Medications Ondansetron HCl (Zofran Tab) 4 mg Q6H PRN PO NAUSEA AND/OR VOMITING; Start at 13:30 Ondansetron HCl (Zofran Inj) 4 mg Q6H PRN IV NAUSEA AND/OR VOMITING; Start at 13:30 Metoclopramide HCl (Reglan) 10 mg Q6H PRN IV NAUSEA AND/OR VOMITING; Start at 13:30 Acetaminophen (Tylenol Tab) 650 mg Q6H PRN PO PAIN LEVEL 1-3 OR FEVER Last administered on 08/06/16 01:39; Admin Dose 650 MG; Start 08/05/16 at 13:30 Acetaminophen/ Hydrocodone Bitart ([place] (5/325)) 1 tab Q6H PRN PO MODERATE PAIN LEVEL 4-6 Last administered on 08/16/16 06:24; Admin Dose 1 TAB; Start at 13:30 Zolpidem Tartrate (Ambien) 5 mg QHS PRN PO SLEEP Last administered on 23:57; Admin Dose 5 MG; Start 08/05/16 at 13:30 Heparin Sodium (Porcine) (Heparin (5000 Units/0.5 ml)) 5,000 unit Q8 SC ; Start 08/05/16 at 14:00 Miscellaneous Information 1 ea NOTE XX ; Start 08/06/16 at 12:00 Morphine Sulfate (morphine) 4 mg Q4H PRN IV SEVERE PAIN LEVEL 7-10 Last administered on 08/13/16 11:31; Admin Dose 4 MG; Start 08/11/16 at 01:30 Pantoprazole (Protonix Tab) 40 mg DAILY@06 PO Last administered on 08/15/16 05 :02; Admin Dose 40 MG; Start 08/13/16 at 06:00 Lisinopril (Zestril) 5 mg BID PO Last administered on 08/15/16 10:02; Admin Dose 5 MG; Start 08/12/16 at 21:00 Carvedilol (Coreg) 3.125 mg BID PO Last administered on 08/15/16 10:02; Admin Dose 3.125 MG; Start 08/12/16 at 21:00 Aspirin (Aspirin) 81 mg DAILY PO Last administered on 08/13/16 08:33; Admin Dose 81 MG; Start 08/13/16 at 09:00 Atorvastatin Calcium (Lipitor) 20 mg HS PO ; Start 08/12/16 at 21:00 Ciprofloxacin (Cipro) 500 mg Q24H PO Last administered on 08/15/16 18:20; Admin Dose 500 MG; Start 08/13/16 at 18:00 Metronidazole (Flagyl) 500 mg TID PO Last administered on 08/16/16t 08:57; Admin Dose 500 MG; Start 08/13/16 at 21:00 TASHA AYOUB MD Aug 16, 2016 10:17
[2016-08-16] MEDS ORDERED: METR500T PO (10:20)
[2016-08-16] MEDS ORDERED: CIPR500T4 PO (10:20)
[2016-08-16] MEDS ORDERED: EPOETIN 10000 UNITS/1 ML INJ (ESRD) SC ONE (10:30)
[2016-08-16] MEDS ORDERED: EPOETIN 10000 UNITS/1 ML INJ (ESRD) IV ONE (11:00)
--- NOTE | 2016-08-16 12:11 | CONS ---
Date/Time of Note Date/Time of Note DATE: 08/16/16 TIME: 12:09 Assessment/Plan Assessment/Plan Additional Assessment/Plan Nonischemic cardiomyopathy with ejection fraction 35% Compensated systolic congestive heart failure End-stage renal disease on hemodialysis Peripheral arterial disease Hypertension Status post cholecystectomy -Blood pressure trend overall improved when patient takes his medicine. Continue beta-lebron and UBALDO inhibitor as blood pressure and heart rate permits Consultation Date/Type/Reason Admit Date/Time Aug 07, 2016 at 09:20 Type of Consultation: cv 24 HR Interval Summary Free Text/Dictation Denies shortness of breath, chest pain, abdomen feeling better Exam/Review of Systems Vital Signs Vitals Vital Signs Date Time Temp Pulse Resp B/P Pulse Ox O2 Delivery O2 Flow Rate FiO2 08/16/16 11:30 82 08/16/16 09:00 19 08/16/16 08:13 98.2 178/71 97 08/15/16 10:01 Room Air Intake and Output 08/15/16 08/15/16 08/16/16 15:00 23:00 07:00 Intake Total 300 ml 490 ml Balance 300 ml 490 ml Exam No apparent distress Constitutional: alert, oriented Head: normocephalic Respiratory: other (Coarse breath sounds bilaterally, no wheezing) Cardiovascular: other (S1-S2 heard), regular rate and rhythm Gastrointestinal: bowel sounds, non-tender, other (Surgical incisions), soft Extremities: other (No edema, amputation) Results Result Diagram: 08/16/16 0436 08/14/16 0413 Results 24 hrs Laboratory Tests Test 08/15/16 16:14 08/16/16 04:36 Bedside Glucose 133 White Blood Count 7.0 Red Blood Count 2.69 L Hemoglobin 8.4 L Hematocrit 25.3 L Mean Corpuscular Volume 94.1 Mean Corpuscular Hemoglobin 31.2 Mean Corpuscular Hemoglobin Concent 33.2 Red Cell Distribution Width 17.0 H Platelet Count 265 Mean Platelet Volume 10.2 Neutrophils % 64.9 Lymphocytes % 21.2 Monocytes % 8.9 Eosinophils % 3.9 Basophils % 0.4 Nucleated Red Blood Cells % 0.0 Neutrophils # 4.5 Lymphocytes # 1.5 Monocytes # 0.6 Eosinophils # 0.3 Basophils # 0.0 Nucleated Red Blood Cells # 0.0 Medications Medications Current Medications Ondansetron HCl (Zofran Tab) 4 mg Q6H PRN PO NAUSEA AND/OR VOMITING; Start at 13:30 Ondansetron HCl (Zofran Inj) 4 mg Q6H PRN IV NAUSEA AND/OR VOMITING; Start at 13:30 Metoclopramide HCl (Reglan) 10 mg Q6H PRN IV NAUSEA AND/OR VOMITING; Start at 13:30 Acetaminophen (Tylenol Tab) 650 mg Q6H PRN PO PAIN LEVEL 1-3 OR FEVER Last administered on 08/06/16 01:39; Admin Dose 650 MG; Start 08/05/16 at 13:30 Acetaminophen/ Hydrocodone Bitart ([place] (5/325)) 1 tab Q6H PRN PO MODERATE PAIN LEVEL 4-6 Last administered on 08/16/16 06:24; Admin Dose 1 TAB; Start at 13:30 Zolpidem Tartrate (Ambien) 5 mg QHS PRN PO SLEEP Last administered on 23:57; Admin Dose 5 MG; Start 08/05/16 at 13:30 Heparin Sodium (Porcine) (Heparin (5000 Units/0.5 ml)) 5,000 unit Q8 SC ; Start 08/05/16 at 14:00 Miscellaneous Information 1 ea NOTE XX ; Start 08/06/16 at 12:00 Morphine Sulfate (morphine) 4 mg Q4H PRN IV SEVERE PAIN LEVEL 7-10 Last administered on 08/13/16 11:31; Admin Dose 4 MG; Start 08/11/16 at 01:30 Pantoprazole (Protonix Tab) 40 mg DAILY@06 PO Last administered on 08/15/16 05 :02; Admin Dose 40 MG; Start 08/13/16 at 06:00 Lisinopril (Zestril) 5 mg BID PO Last administered on 08/15/16 10:02; Admin Dose 5 MG; Start 08/12/16 at 21:00 Carvedilol (Coreg) 3.125 mg BID PO Last administered on 08/15/16 10:02; Admin Dose 3.125 MG; Start 08/12/16 at 21:00 Aspirin (Aspirin) 81 mg DAILY PO Last administered on 08/13/16 08:33; Admin Dose 81 MG; Start 08/13/16 at 09:00 Atorvastatin Calcium (Lipitor) 20 mg HS PO ; Start 08/12/16 at 21:00 Ciprofloxacin (Cipro) 500 mg Q24H PO Last administered on 08/15/16 18:20; Admin Dose 500 MG; Start 08/13/16 at 18:00 Metronidazole (Flagyl) 500 mg TID PO Last administered on 08/16/16 08:57; Admin Dose 500 MG; Start 08/13/16 at 21:00 Benjamin Lal DO Aug 16, 2016 12:10
--- NOTE | 2016-08-20 12:39 | DS ---
DATE OF ADMISSION: 08/07/2016 DATE OF DISCHARGE: 08/16/2016 A 35-year-old male with known end-stage renal disease on dialysis, admitted with intermittent right upper quadrant pain of several days' duration. PHYSICAL EXAMINATION: VITAL SIGNS: Pertinent exam, he was afebrile. Vital signs were normal. CARDIOPULMONARY: Exam was unrevealing. ABDOMEN: Slightly tender to deep palpation in the right upper quadrant. LABORATORY AND DIAGNOSTIC STUDIES: Hematocrit 34.8 on 08/05/2016, white count 12,800, platelets wer e normal. On discharge, hematocrit 25.3, white count 7000, platelet count was normal. Chemistries on admission, sodium 133, potassium 5.1, chloride 88, CO2 24, BUN 67, creatinine 10.52. AST, ALT we re normal. Alkaline phosphatase was 139. IMAGING STUDIES: Included an abdominal MRI revealed cholelithiasis, gallbladder hydrops, mild diffu se gallbladder wall thickening and pericholecystic fluid suggestive of acute cholecystitis, no bilia ry dilatation was noted. Gallbladder ultrasound revealed multiple calcified stones within the gallb ladder with evidence of gallbladder wall thickening and no evidence of pericholecystic fluid. Chest x-ray: Mild cardiomegaly, patchy opacity of the left lung base due to subsegmental atelectasis samantha stephen infiltrate. Intraoperative cholangiogram demonstrates opacification o the gallbladder, but comm on bile duct and intrahepatic bile ducts were not visualized. Followup abdominal MRI on 08/09/2016 : There was no definite intrathoracic past or extrahepatic biliary duct dilatation, status post cho lecystectomy and postoperative fluid and mild free gas were noted. HOSPITAL COURSE: The patient was seen by Dr. Ervin and he did perform a laparoscopic cholecystect shara. After the drains were removed, there was a moderate amount of drainage that was not a concern. He was also seen by cardiology, but had no noted cardiac event, having a known ejection fraction of approximately 35%. His sugars remained well controlled and did not require subcutaneous insulin. At time of discharge, there was only scant drainage and he had no right upper quadrant pain. DISCHARGE DIAGNOSES: 1. Acute cholecystitis, undergoing laparoscopic cholecystectomy, uncomplicated. 2. Known chronic renal failure. 3. History of diet-controlled diabetes. PLAN: To be discharged on: 1. Ciprofloxacin 500 mg each day x5 days. 2. Flagyl 500 mg t.i.d. x5 days. 3. Continue Adalat 60 mg per day. 4. Sevelamer 3200 mg p.o. t.i.d. with meals to undergo followup dialysis as an outpatient in 2 days ' time. Dictated By: TASHA HA/GARCIA Conf#: [id number] DID#: [id number]
== END 2016-08-16 15:35 | disposition home or self-care (01) | DRG 411 ==
LOC: E/R 09:18 → MS1 12:56 → OBSVTOIN 08-07 09:20 → UNDODISIN 08-10 10:10
PROVIDERS: ADMIT Internal Medicine; ATTEND Internal Medicine
PROC: 5A1D60Z (ICD-10-PCS; 2016-08-05)
PROC: 0FJB4ZZ Inspection of Hepatobiliary Duct, Percutaneous Endoscopic Approach (ICD-10-PCS; 2016-08-09)
PROC: 0FB04ZX Excision of Liver, Percutaneous Endoscopic Approach, Diagnostic (ICD-10-PCS; 2016-08-09)
PROC: 0FT44ZZ Resection of Gallbladder, Percutaneous Endoscopic Approach (ICD-10-PCS; principal; 2016-08-09 09:30)
PROC: 0WQFXZZ Repair Abdominal Wall, External Approach (ICD-10-PCS; 2016-08-15)
DX: K80.00 Calculus of gallbladder with acute cholecystitis without obstruction (principal); N18.6 End stage renal disease; I13.2 Hypertensive heart and chronic kidney disease with heart failure and with stage 5 chronic kidney disease, or end stage renal disease; E11.22 Type 2 diabetes mellitus with diabetic chronic kidney disease; I50.22 Chronic systolic (congestive) heart failure; E87.1 Hypo-osmolality and hyponatremia; T81.31XA Disruption of external operation (surgical) wound, not elsewhere classified, initial encounter; Z99.2 Dependence on renal dialysis; Z89.512 Acquired absence of left leg below knee; Z91.14 Patient's other noncompliance with medication regimen; D64.9 Anemia, unspecified; K76.9 Liver disease, unspecified; E83.51 Hypocalcemia; F32.9 Major depressive disorder, single episode, unspecified
CPT/HCPCS: 36415; 71010; 74181; 74300; 76705; 80053; 82962; 83036; 83690; 83735; 84100; 84132; 84443; 85025; 85610; 85730; 87040; 88304; 88307; 88313; 90935; 93005; 93306; 96374; 96375; 96376; C9113; G0378; J0360; J0886; J1644; J1815; J2250; J2270; J2405; J2543; J2710; J2765; J2795; J3010; J3370; J7042; Q9967

== ENCOUNTER 2016-08-26 17:56 | Inpatient (IN) | payer MEDICARE, OTHER ==
[~2016-08-26] VITALS: Ht 180.3 cm; Wt 101.6 kg
[~2016-08-26 17:56] MED LIST changes: -ASPI-664 PO; -CARV25TA79 PO; +CIPR500T4 PO; -ICNCLON PO; -LACT1CAP57 PO; -LANT3I SC; -LORA1TAB PO; +METR500T PO; -MULT-552 PO; -NOV SC; -SERT50TA PO; -SMV40T PO
[2016-08-26] MEDS ORDERED: ONDANSETRON 4 MG INJ IV STA (19:27)
[2016-08-26] MEDS ORDERED: HYDROmorphONE 1 MG/ML SYG IV STA (19:27)
[2016-08-26] MEDS ORDERED: PIPER-TAZO 3.375 GM IV (PMX) 100 ML IVPB STA (19:27)
[2016-08-26] MEDS ORDERED: VANCOMYCIN 1 GM (PMX) 250 ML IVPB SCH (19:30)
[2016-08-26 19:49] LABS: ADD SCAN DIFF NO
[2016-08-26 19:51] LABS: BASOPHILS % 0.2 % (0.0-2.0); EOSINOPHILS # 0.2 10^3/ul (0.0-0.5); EOSINOPHILS % 1.6 % (0.0-7.0); HEMATOCRIT 28.9 % (42.0-52.0); HEMOGLOBIN 9.5 g/dl (14.0-18.0); LYMPHOCYTES # 1.2 10^3/ul (0.8-2.9); LYMPHOCYTES % 9.7 % (15.0-51.0); MEAN CORPUSCULAR HEMOGLOBIN 31.9 pg (29.0-33.0); MEAN CORPUSCULAR HGB CONC 32.9 g/dl (32.0-37.0); MEAN PLATELET VOLUME 9.8 fl (7.4-10.4); MONOCYTE # 1.2 10^3/ul (0.3-0.9); MONOCYTES % 10.1 % (0.0-11.0); NEUTROPHIL # 9.6 10^3/ul (1.6-7.5); NEUTROPHILS % 78.1 % (39.0-77.0); PLATELET COUNT 261 10^3/UL (140-415); RED BLOOD COUNT 2.98 10^6/ul (4.70-6.10); RED CELL DISTRIBUTION WIDTH 19.1 % (11.5-14.5); WHITE BLOOD COUNT 12.3 10^3/ul (4.8-10.8)
[2016-08-26 20:07] LABS: POTASSIUM 4.6 mmol/L (3.5-5.1)
[2016-08-26 20:09] LABS: ALBUMIN/GLOBULIN RATIO 0.85; BILIRUBIN,INDIRECT 0.1 mg/dl (0-1.1); BILIRUBIN,TOTAL 0.1 mg/dl (0.2-1.3); CALCIUM 7.1 mg/dl (8.4-10.2); CREATININE 13.43 mg/dl (0.61-1.24); TOTAL PROTEIN 8.7 g/dl (6.1-8.1)
--- NOTE | 2016-08-26 20:38 | RADRPT ---
PROCEDURE: Left upper extremity venous ultrasound CLINICAL INDICATION: Left arm pain and swelling. Deep venous thrombosis. TECHNIQUE: Carlisle scale, color doppler, spectral doppler ultrasound imaging of the venous system of the left upper extremity. Augmentation maneuvers were utilized. COMPARISON: No prior studies are available for comparison. FINDINGS: LEFT: Internal jugular vein: Patent. Subclavian vein: Patent. Axillary vein: Patent. Brachial vein: Patent. Basilic vein: Patent. Cephalic vein: Thrombosed in the upper arm, patent in the forearm Radial vein: Not imaged. Ulnar vein: Patent. Subcutaneous edema present in the forearm and adjacent to the basilic vein graft. IMPRESSION: No evidence of a deep vein thrombosis involving the left upper extremity. Superficial venous thrombosis of the cephalic vein in the upper arm. Subcutaneous edema present in the forearm. RPTAT: AADD .Eliel Ogden MD, Date Time Electronically viewed and signed by .Eliel Ogden MD, on 08/26/2016 20:38 .B/
[2016-08-26] MEDS ORDERED: ZOLPIDEM 5 MG TAB PO PRN (22:00)
[2016-08-26] MEDS ORDERED: ONDANSETRON 4 MG TAB PO PRN (22:00)
[2016-08-26] MEDS ORDERED: NACL 0.9% 3 ML SYG IV SCH (22:00)
[2016-08-26] MEDS ORDERED: ACETAMINOPHEN 325 MG TAB PO PRN ×2 (22:00→22:30)
[2016-08-26] MEDS ORDERED: SOD CHLORIDE 0.9% 1,000 ML IV SCH (22:11)
--- NOTE | 2016-08-26 22:13 | ERA ---
ER Documentation Chief Complaint Date/Time DATE: 08/26/16 TIME: 22:11 Chief Complaint SWELLING TO LEFT ARM FISTUALA SITE HPI This is a 36-year-old dialysis patient who went to dialysis last on Friday. Complains of 3 days of progressive worsening swelling and erythema pain to his distal left arm. He has no shortness of breath chest pain no nausea vomiting diarrhea fever palpitations or syncope. The patient states he has had cellulitis before this is very similar to his last presentation ROS All systems reviewed and are negative except as per history of present illness. Medications Home Meds Reported Medications Sevelamer Carbonate* (Renvela*) 800 Mg Tablet, 3200 MG PO WITH MEALS, TAB 09/25/14 Discontinued Reported Medications Nifedipine* (Adalat CC*) 60 Mg Tablet.sa, 60 MG PO BID, #60 TAB.SA 08/05/16 Discontinued Scripts Metronidazole* (Flagyl*) 500 Mg Tablet, 500 MG PO TID, #20 TAB Prov:TASHA AYOUB MD 08/16/16 Ciprofloxacin Hcl* (Ciprofloxacin Hcl*) 500 Mg Tablet, 500 MG PO Q24H, #5 TAB Prov:TASHA AYOUB MD 08/16/16 Allergies Allergies: Coded Allergies: sulfamethoxazole (Verified Allergy, Unknown, SWELLING, 08/26/16) trimethoprim (Verified Allergy, Unknown, SWELLING, 08/26/16) PMhx/Soc History of Surgery: Yes (2 times fistula, left BKA, 2 eye surgeries) Anesthesia Reaction: No (06/2016, 05/2016, 04/2016) Hx Neurological Disorder: No Hx Respiratory Disorders: No Hx Cardiac Disorders: Yes (hypertension) Hx Psychiatric Problems: No Hx Miscellaneous Medical Probl: Yes (OBESITY, NON-COMPLIANCE, DM, MRSA, CLOTS) Hx Alcohol Use: No Hx Substance Use: No Hx Tobacco Use: No Smoking Status: Never smoker FmHx Family History: No coronary disease Physical Exam Vitals Vital Signs Date Time Temp Pulse Resp B/P Pulse Ox O2 Delivery O2 Flow Rate FiO2 08/26/16 18:06 100.2 100 18 199/78 99 Physical Exam Const: Well-developed, well-nourished Head: Atraumatic, normocephalic Eyes: Normal Conjunctiva, PERRLA, EOMI, normal sclera, no nystagmus ENT: Normal External Ears, Nose and Mouth, moist mucus membranes. Neck: Full range of motion. No meningismus, no lymphadenopathy. Resp: Clear to auscultation bilaterally, no wheezing, rhonchi, rales Cardio: Regular rate and rhythm, no murmurs, S1 S2 present Abd: Soft, non tender x 4, non distended. Normal bowel sounds, no guarding or rebound, no pulsitile abdominal masses or bruits Skin: No petechiae or rashes, no ecchymosis , no maculopapular rash Back: No midline or flank tenderness Ext: No cyanosis, or edema, FROM x 4, normal inspection, neurovascularly intact x 4, left upper extremity shows some erythema warmth tenderness starting at the proximal forearm all the way down to the hand. Neur: Awake and alert, STR 5/5 x 4, sensation intact x 4, no focal findings, cerebellum intact Psych: Normal Mood and Affect Result Diagram: 08/26/16192908/26/161929 Results 24 hrs Laboratory Tests Test 08/26/16 19:30 White Blood Count 12.310^3/ul Red Blood Count 2.9810^6/ul Hemoglobin 9.5g/dl Hematocrit 28.9% Mean Corpuscular Volume 97.0fl Mean Corpuscular Hemoglobin 31.9pg Mean Corpuscular Hemoglobin Concent 32.9g/dl Red Cell Distribution Width 19.1% Platelet Count 99795^3/UL Mean Platelet Volume 9.8fl Neutrophils % 78.1% Lymphocytes % 9.7% Monocytes % 10.1% Eosinophils % 1.6% Basophils % 0.2% Nucleated Red Blood Cells % 0.0/100WBC Neutrophils # 9.610^3/ul Lymphocytes # 1.210^3/ul Monocytes # 1.210^3/ul Eosinophils # 0.210^3/ul Basophils # 0.010^3/ul Nucleated Red Blood Cells # 0.010^3/ul Sodium Level 137mmol/L Potassium Level 4.6mmol/L Chloride Level 92mmol/L Carbon Dioxide Level 25mmol/L Anion Gap 25 Blood Urea Nitrogen 64mg/dl Creatinine 13.43mg/dl Glucose Level 106mg/dl Calcium Level 7.1mg/dl Total Bilirubin 0.1mg/dl Direct Bilirubin 0.00mg/dl Indirect Bilirubin 0.1mg/dl Aspartate Amino Transf (AST/SGOT) 16IU/L Alanine Aminotransferase (ALT/SGPT) 22IU/L Alkaline Phosphatase 109IU/L Total Protein 8.7g/dl Albumin 4.0g/dl Globulin 4.70g/dl Albumin/Globulin Ratio 0.85 Current Medications Medications (Trade) Dose Ordered Sig/Raul Route PRN Reason Start Time Stop Time Status Last Admin Dose Admin Hydromorphone HCl (Dilaudid) 1 mg ONCE STAT IV 08/26/16 19:27 08/26/16 19:28 DC Ondansetron HCl 4 mg 4 mg ONCE STAT IV 08/26/16 19:27 08/26/16 19:29 DC Piperacillin Sod/ Tazobactam Sod 100 ml @ 200 mls/hr ONCE STAT IVPB 08/26/16 19:27 08/26/16 19:56 DC 08/26/16 20:15 Vancomycin HCl (Vancocin) 250 ml @ 125 mls/hr ONCE IVPB 08/26/16 19:30 08/26/16 21:29 DC 08/26/16 19:30 IV Flush (NS 3 ml) 3 ml PER PROTOCOL IV 08/26/16 22:00 Ondansetron HCl (Zofran Tab) 4 mg Q6H PRN PO NAUSEA AND/OR VOMITING 08/26/16 22:00 Acetaminophen (Tylenol Tab) 650 mg Q6H PRN PO PAIN LEVEL 1-3 OR FEVER 08/26/16 22:00 Zolpidem Tartrate (Ambien) 5 mg QHS PRN PO SLEEP 08/26/16 22:00 Procedures/MDM PROCEDURE: Left upper extremity venous ultrasound CLINICAL INDICATION: Left arm pain and swelling. Deep venous thrombosis. TECHNIQUE: Carlisle scale, color doppler, spectral doppler ultrasound imaging of the venous system of the left upper extremity. Augmentation maneuvers were utilized. COMPARISON: No prior studies are available for comparison. FINDINGS: LEFT: Internal jugular vein: Patent. Subclavian vein: Patent. Axillary vein: Patent. Brachial vein: Patent. Basilic vein: Patent. Cephalic vein: Thrombosed in the upper arm, patent in the forearm Radial vein: Not imaged. Ulnar vein: Patent. Subcutaneous edema present in the forearm and adjacent to the basilic vein graft. IMPRESSION: No evidence of a deep vein thrombosis involving the left upper extremity. Superficial venous thrombosis of the cephalic vein in the upper arm. Subcutaneous edema present in the forearm. RPTAT: AADD .Eliel Ogden MD, Date Time Electronically viewed and signed by .Eliel Ogden MD, on 08/26/2016 20:38 .B/ CC: MARY CARDENAS DO Patient is no DVT. Patient has cellulitis has had blood cultures and been given antibiotics We will admit him to the floor for intravenous antibiotic therapy and pain control. Patient will need to undergo dialysis tomorrow. His potassium is normal at 4.6. Departure Diagnosis: Primary Impression: Left arm cellulitis Condition: Stable MARY CARDENAS DO August 26, 2016 22:13
[2016-08-26] MEDS ORDERED: ONDANSETRON 4 MG INJ IV PRN (22:30)
[2016-08-26 22:37] VITALS: TEMP 99.1
[2016-08-26 23:30] VITALS: BP 212/102; PULSE 78; RESP 18
[2016-08-26] MEDS ORDERED: NIFE60TA7 PO (23:57)
[2016-08-26] MEDS ORDERED: LORA-444 PO (23:57)
[2016-08-26 23:59] VITALS: Ht 180.3 cm; Wt 101.6 kg
[2016-08-27] VITALS (13 sets, daily range): BP systolic 131–233; BP diastolic 52–112; PULSE 79–95; RESP 16–20
[2016-08-27 05:23] LABS: ADD SCAN DIFF NO
[2016-08-27 05:26] LABS: BASOPHILS % 0.2 % (0.0-2.0); EOSINOPHILS # 0.2 10^3/ul (0.0-0.5); HEMATOCRIT 25.3 % (42.0-52.0); LYMPHOCYTES # 1.1 10^3/ul (0.8-2.9); LYMPHOCYTES % 10.8 % (15.0-51.0); MEAN CORPUSCULAR HEMOGLOBIN 30.7 pg (29.0-33.0); MEAN CORPUSCULAR HGB CONC 31.6 g/dl (32.0-37.0); MEAN CORPUSCULAR VOLUME 96.9 fl (82.0-101.0); MEAN PLATELET VOLUME 10.1 fl (7.4-10.4); MONOCYTE # 1.2 10^3/ul (0.3-0.9); NEUTROPHIL # 7.9 10^3/ul (1.6-7.5); NEUTROPHILS % 75.7 % (39.0-77.0); PLATELET COUNT 211 10^3/UL (140-415); RED BLOOD COUNT 2.61 10^6/ul (4.70-6.10); RED CELL DISTRIBUTION WIDTH 19.1 % (11.5-14.5); WHITE BLOOD COUNT 10.4 10^3/ul (4.8-10.8)
[2016-08-27 06:06] LABS: CALCIUM 6.7 mg/dl (8.4-10.2); CREATININE 13.32 mg/dl (0.61-1.24)
[2016-08-27] MEDS: SEVELAMER CARBONATE 0.8 GM PKT PO SCH ×2 (08:15→12:15)
[2016-08-27] MEDS: SEVELAMER CARBONATE 2.4 GM PKT PO SCH ×2 (08:15→12:15)
[2016-08-27] MEDS ORDERED: SEVELAMER CARBONATE 0.8 GM PKT PO SCH (08:15)
[2016-08-27] MEDS: LISINOPRIL 10 MG TAB PO SCH (08:18)
[2016-08-27] MEDS: MULTIVIT/CA CARB/B CMPLX/FA TAB PO SCH (08:52)
[2016-08-27] MEDS: HYDROCODONE/APAP (5/325) TAB PO PRN ×3 (08:52→20:09)
--- NOTE | 2016-08-27 09:22 | HP ---
DATE OF ADMISSION: 08/26/2016 REASON FOR ADMISSION: Cellulitis, left forearm. HISTORY OF PRESENT ILLNESS: This is a 36-year-old male well known to me with end-stage renal diseas e due to diabetic nephropathy, complicated by a known nonischemic cardiomyopathy, severe peripheral arterial disease, and hypertension who was recently here last month at [facility] where he underwent a succ essful laparoscopic cholecystectomy. Was in his usual state of health when yesterday, Friday, his t ypical dialysis day, he woke with a red, swollen left forearm. He denied any trauma. He felt his fistula, which is also in the left arm, would be the left upper a rm, and it was patent. He therefore presented to the [facility] ER with those complaints, and was noted with a tem perature of 100.2. He was hemodynamically stable. His exam was noted for obvious cellulitis of left forearm. He was blood cultured, empirically given vancomycin and Zosyn, and admitted. Currently, he feels in his usual state of health, albeit does complain of some swelling and tenderne ss about the left forearm. He denies any trauma, chills, nausea, vomiting, chest pain, or shortness of breath. PAST MEDICAL HISTORY: Please see full dictated problem list. ALLERGIES: TO SULFA. HABITS: Tobacco: None. Alcohol: None. MEDICATIONS: 1. Renvela 4 tabs t.i.d. with meals. 2. Nephro-Rfaael 1 a day. 3. Nifedipine has been discontinued. 4. He has not yet started carvedilol and lisinopril. REVIEW OF SYSTEMS: As per HPI, otherwise the 14-point review of systems is unremarkable. PHYSICAL EXAMINATION: GENERAL: Fit-appearing male in no acute distress. VITAL SIGNS: He is currently afebrile, blood pressure is 173/98, heart rate is 70 and regular, resp irations are 12 and unlabored. SKIN: Warm, well perfused. HEAD: Normocephalic, atraumatic. EYES: Pupils are round. Extraocular movements appear full. Sclerae anicteric. PHARYNX: No lesions. NECK: JVP not distended. BACK: No CVAT. LUNGS: Clear. HEART: S1, S2 with a 1-2/6 systolic murmur, unchanged. ABDOMEN: Soft and nontender, well healed laparoscopy scars. EXTREMITIES: He is status post a left BKA. He has a well-functioning fistula in the left upper ext remity. The left forearm from the mid forearm to the hand and is warm, slightly swollen, slightly e rythematous. He is neurovascularly intact of the left upper extremity, however. DATA: A left upper extremity venous ultrasound was done which showed no evidence of any DVT. There was a superficial thrombosis of the cephalic vein of that left arm. LABORATORY DATA: White count was 12.3, hemoglobin 9.5, hematocrit 28.9, platelet count 261,000. So dium 137, potassium 4.6, chloride 92, bicarbonate 25, BUN 64, creatinine 13.43, calcium 7.1, total b ilirubin 0.1, AST 16, ALT 22, alkaline phosphatase is 109, total protein 8.7, albumin is 4.0. Gluco se is 106. PROBLEM LIST: 1. Cellulitis, left forearm, patent left upper extremity AV fistula. 2. End-stage renal disease, for planned hemodialysis today. 3. Diabetes mellitus, controlled on diet alone. 4. Peripheral vascular disease, status post left BKA in the past. 5. Nonischemic cardiomyopathy with an ejection fraction of approximately 35%, to be started on carv edilol and lisinopril after dialysis. 6. Gastroesophageal reflux disease, controlled on omeprazole as an outpatient. 7. History of multiple prior failed AV fistulas, most recently in the right upper extremity, status post tie off. 8. Acute cholecystitis status post laparoscopic cholecystectomy with Dr. Ervin in July of this y ear, well tolerated. 9. Hypertension, as noted. 10. Anemia of end-stage renal disease, maintained on outpatient EPO. RECOMMENDATIONS: 1. Admit to hospital. 2. Lopez culture has been done. 3. Antibiotics with vancomycin and Zosyn. 4. Hemodialysis. 5. Further recommendations pending response to above. Dictated By: BRENDEN VALE MD, MM/GARCIA Conf#: [id number] DID#: [id number]
[2016-08-27] MEDS: PIPER-TAZO 2.25 GM (PMX) 50 ML IVPB SCH ×2 (15:54→22:15)
[2016-08-27] MEDS: EPOETIN 10000 UNITS/1 ML INJ (ESRD) SC SCH (17:03)
[2016-08-27] MEDS: HYDROmorphONE 1 MG/ML SYG IV PRN (17:54)
[2016-08-27] MEDS: SEVELAMER 800 MG TAB PO SCH (19:01)
[2016-08-28] VITALS (9 sets, daily range): BP systolic 148–200; BP diastolic 55–89; PULSE 77–92; RESP 16–20
[2016-08-28] MEDS: HYDROCODONE/APAP (5/325) TAB PO PRN ×2 (02:05→05:50)
[2016-08-28 05:48] LABS: ADD SCAN DIFF NO
[2016-08-28] MEDS: PIPER-TAZO 2.25 GM (PMX) 50 ML IVPB SCH ×3 (05:50→21:56)
[2016-08-28] MEDS: PANTOPRAZOLE (EC) 40 MG TAB PO SCH (05:50)
[2016-08-28 05:51] LABS: BASOPHILS % 0.2 % (0.0-2.0); EOSINOPHILS # 0.2 10^3/ul (0.0-0.5); EOSINOPHILS % 2.5 % (0.0-7.0); HEMATOCRIT 24.5 % (42.0-52.0); LYMPHOCYTES # 0.9 10^3/ul (0.8-2.9); LYMPHOCYTES % 9.2 % (15.0-51.0); MEAN CORPUSCULAR HEMOGLOBIN 31.6 pg (29.0-33.0); MEAN CORPUSCULAR HGB CONC 32.7 g/dl (32.0-37.0); MEAN CORPUSCULAR VOLUME 96.8 fl (82.0-101.0); MEAN PLATELET VOLUME 10.1 fl (7.4-10.4); MONOCYTE # 1.3 10^3/ul (0.3-0.9); MONOCYTES % 13.1 % (0.0-11.0); NEUTROPHIL # 7.1 10^3/ul (1.6-7.5); NEUTROPHILS % 74.6 % (39.0-77.0); PLATELET COUNT 197 10^3/UL (140-415); RED BLOOD COUNT 2.53 10^6/ul (4.70-6.10); RED CELL DISTRIBUTION WIDTH 18.5 % (11.5-14.5); WHITE BLOOD COUNT 9.6 10^3/ul (4.8-10.8)
[2016-08-28 06:05] LABS: POTASSIUM 3.9 mmol/L (3.5-5.1)
[2016-08-28 06:08] LABS: CREATININE 9.88 mg/dl (0.61-1.24)
[2016-08-28 06:09] LABS: CALCIUM 6.9 mg/dl (8.4-10.2)
[2016-08-28] MEDS: SEVELAMER 800 MG TAB PO SCH ×3 (08:28→18:57)
[2016-08-28] MEDS: MULTIVIT/CA CARB/B CMPLX/FA TAB PO SCH (08:28)
[2016-08-28] MEDS: LISINOPRIL 10 MG TAB PO SCH (08:29)
--- NOTE | 2016-08-28 08:35 | CONS ---
Date/Time of Note Date/Time of Note DATE: 08/28/16 TIME: 08:33 Assessment/Plan Assessment/Plan Additional Assessment/Plan 1. Cellulitis left upper extremity, abx reviewed. 2. HBP, will add Catapres and hold for parameter 3. Anemia noted, may need transfusion soon, iron studies ordered Consultation Date/Type/Reason Admit Date/Time August 26, 2016 at 21:51 Initial Consult Date Detailed Summary Cardiovascular: No chest pain, No orthopenea Gastrointestinal: no complaints Genitourinary: no complaints Musculoskeletal: other (left upper extrem is less swollen and less painful) Exam/Review of Systems Vital Signs Vitals Vital Signs Date Time Temp Pulse Resp B/P Pulse Ox O2 Delivery O2 Flow Rate FiO2 08/28/16 08:11 98.3 79 16 200/89 97 08/27/16 06:30 Room Air Intake and Output 08/27/16 08/27/16 08/28/16 15:00 23:00 07:00 Intake Total 1580 ml 850 ml Output Total 4300 ml Balance -2720 ml 850 ml Exam Neck: No jvd Respiratory: clear to auscultation Cardiovascular: regular rate and rhythm Gastrointestinal: soft Extremities: other (left upper extrem swell and redness and warm) Results Result Diagram: 08/28/16 0510 08/28/16 0510 Results 24 hrs Laboratory Tests Test 08/28/16 05:10 White Blood Count 9.6 Red Blood Count 2.53 L Hemoglobin 8.0 L Hematocrit 24.5 L Mean Corpuscular Volume 96.8 Mean Corpuscular Hemoglobin 31.6 Mean Corpuscular Hemoglobin Concent 32.7 Red Cell Distribution Width 18.5 H Platelet Count 197 Mean Platelet Volume 10.1 Neutrophils % 74.6 Lymphocytes % 9.2 L Monocytes % 13.1 H Eosinophils % 2.5 Basophils % 0.2 Nucleated Red Blood Cells % 0.0 Neutrophils # 7.1 Lymphocytes # 0.9 Monocytes # 1.3 H Eosinophils # 0.2 Basophils # 0.0 Nucleated Red Blood Cells # 0.0 Sodium Level 137 Potassium Level 3.9 Chloride Level 94 L Carbon Dioxide Level 25 Anion Gap 22 H Blood Urea Nitrogen 50 H Creatinine 9.88 #H Glucose Level 182 Calcium Level 6.9 L Medications Medications Current Medications Ondansetron HCl (Zofran Tab) 4 mg Q6H PRN PO NAUSEA AND/OR VOMITING; Start 5/8 /17 at 22:00 Acetaminophen (Tylenol Tab) 650 mg Q6H PRN PO PAIN LEVEL 1-3 OR FEVER; Start at 22:00 Zolpidem Tartrate (Ambien) 5 mg QHS PRN PO SLEEP; Start 08/26/16 at 22:00 Clonidine (Catapres) 0.2 mg TID PRN PO SBP ABOVE 170 Last administered on 20:08; Admin Dose 0.2 MG; Start 08/27/16 at 00:00 Lisinopril (Zestril) 10 mg DAILY PO Last administered on 08/28/16 08:29; Admin Dose 10 MG; Start 08/27/16 at 09:00 Carvedilol (Coreg) 6.25 mg BID PO Last administered on 08/28/16 08:29; Admin Dose 6.25 MG; Start 08/27/16 at 09:00 Multivit/Ca Carb/ B Cmplx/FA/Prenat (Carmen-Rafael) 1 tab DAILY PO Last administered on 08/28/16 08:28; Admin Dose 1 TAB; Start 08/27/16 at 09:00 Acetaminophen/ Hydrocodone Bitart ([place] (5/325)) 1 tab Q4H PRN PO PAIN Last administered on 08/28/16 05:50; Admin Dose 1 TAB; Start 08/27/16 at 08:00 Pantoprazole (Protonix Tab) 40 mg DAILY@06 PO Last administered on 08/28/16 05 :50; Admin Dose 40 MG; Start 08/28/16 at 06:00 Epoetin Shay 89266 units 10,000 units TuThSa@17 SC Last administered on 17:03; Admin Dose 10,000 UNITS; Start 08/27/16 at 17:00 Piperacillin Sod/ Tazobactam Sod (Zosyn 2.25gm/ 50ml (Pmx)) 50 ml @ 100 mls/hr Q8 IVPB Last administered on 08/28/16 05:50; Admin Dose 100 MLS/HR; Start 08/27 at 14:00 Hydromorphone HCl (Dilaudid) 1 mg Q6H PRN IV PAIN Last administered on 17:54; Admin Dose 1 MG; Start 08/27/16 at 18:00 TASHA AYOUB MD August 28, 2016 08:35
[2016-08-28] MEDS: HYDROmorphONE 1 MG/ML SYG IV PRN (11:38)
[2016-08-28] MEDS: NAPROXEN 500 MG TAB PO SCH ×2 (13:26→18:56)
[2016-08-29 05:23] LABS: ADD SCAN DIFF NO
[2016-08-29 05:32] LABS: BASOPHILS % 0.3 % (0.0-2.0); EOSINOPHILS # 0.4 10^3/ul (0.0-0.5); EOSINOPHILS % 4.2 % (0.0-7.0); HEMATOCRIT 26.5 % (42.0-52.0); HEMOGLOBIN 8.5 g/dl (14.0-18.0); LYMPHOCYTES # 0.7 10^3/ul (0.8-2.9); LYMPHOCYTES % 7.4 % (15.0-51.0); MEAN CORPUSCULAR HGB CONC 32.1 g/dl (32.0-37.0); MEAN CORPUSCULAR VOLUME 96.7 fl (82.0-101.0); MEAN PLATELET VOLUME 10.5 fl (7.4-10.4); MONOCYTES % 10.6 % (0.0-11.0); NEUTROPHIL # 7.5 10^3/ul (1.6-7.5); NEUTROPHILS % 77.1 % (39.0-77.0); PLATELET COUNT 205 10^3/UL (140-415); RED BLOOD COUNT 2.74 10^6/ul (4.70-6.10); RED CELL DISTRIBUTION WIDTH 18.3 % (11.5-14.5); WHITE BLOOD COUNT 9.7 10^3/ul (4.8-10.8)
[2016-08-29 05:43] LABS: CALCIUM 7.3 mg/dl (8.4-10.2); CREATININE 8.22 mg/dl (0.61-1.24); IRON 27 ug/dl (35-150); POTASSIUM 4.4 mmol/L (3.5-5.1)
[2016-08-29 05:53] LABS: TOTAL IRON BINDING CAPACITY 220 ug/dl (241-421)
[2016-08-29] MEDS: PANTOPRAZOLE (EC) 40 MG TAB PO SCH (06:00)
[2016-08-29] MEDS: PIPER-TAZO 2.25 GM (PMX) 50 ML IVPB SCH ×3 (06:00→22:17)
--- NOTE | 2016-08-29 08:31 | CONS ---
Date/Time of Note Date/Time of Note DATE: 08/29/16 TIME: 08:28 Assessment/Plan Assessment/Plan Problems: (1) Cellulitis Comment: sl better on the Vanco/Zosyn... redose Vanco in AM tomorrow (2) Anemia Status: Acute Comment: stable... dose w Ferrlecit x5 now... is on EPO (3) Essential hypertension Status: Acute Comment: coreg/lisin increased today (4) End stage renal disease on dialysis Status: Acute Comment: for HD in AM tomorrow Consultation Date/Type/Reason Admit Date/Time August 26, 2016 at 21:51 Initial Consult Date Type of Consultation: neph 24 HR Interval Summary Free Text/Dictation sl less edema Lt forearm.. less red as well Exam/Review of Systems Vital Signs Vitals Vital Signs Date Time Temp Pulse Resp B/P Pulse Ox O2 Delivery O2 Flow Rate FiO2 08/28/16 19:28 98.5 78 20 193/84 93 08/27/16 06:30 Room Air Intake and Output 08/28/16 08/28/16 08/29/16 15:00 23:00 07:00 Intake Total 50 ml 710 ml 290 ml Output Total 4300 ml Balance 50 ml -3590 ml 290 ml Exam Constitutional: alert, oriented Psych: no complaints Neck: supple Respiratory: clear to auscultation Cardiovascular: regular rate and rhythm Extremities: normal pulses (AVF LUE patent... swelling forearm sl less) Results Result Diagram: 08/29/16 0458 08/29/16 0458 Results 24 hrs Laboratory Tests Test 08/29/16 04:58 White Blood Count 9.7 Red Blood Count 2.74 L Hemoglobin 8.5 L Hematocrit 26.5 L Mean Corpuscular Volume 96.7 Mean Corpuscular Hemoglobin 31.0 Mean Corpuscular Hemoglobin Concent 32.1 Red Cell Distribution Width 18.3 H Platelet Count 205 Mean Platelet Volume 10.5 H Neutrophils % 77.1 H Lymphocytes % 7.4 L Monocytes % 10.6 Eosinophils % 4.2 Basophils % 0.3 Nucleated Red Blood Cells % 0.0 Neutrophils # 7.5 Lymphocytes # 0.7 L Monocytes # 1.0 H Eosinophils # 0.4 Basophils # 0.0 Nucleated Red Blood Cells # 0.0 Sodium Level 135 Potassium Level 4.4 Chloride Level 97 Carbon Dioxide Level 26 Anion Gap 16 Blood Urea Nitrogen 41 H Creatinine 8.22 H Glucose Level 170 Calcium Level 7.3 L Iron Level 27 L Total Iron Binding Capacity 220 L Percent Iron Saturation 12 L Ferritin 309.0 Medications Medications Current Medications Ondansetron HCl (Zofran Tab) 4 mg Q6H PRN PO NAUSEA AND/OR VOMITING; Start 08/26 at 22:00 Acetaminophen (Tylenol Tab) 650 mg Q6H PRN PO PAIN LEVEL 1-3 OR FEVER; Start at 22:00 Zolpidem Tartrate (Ambien) 5 mg QHS PRN PO SLEEP; Start 08/26/16 at 22:00 Clonidine (Catapres) 0.2 mg TID PRN PO SBP ABOVE 170 Last administered on 19:42; Admin Dose 0.2 MG; Start 08/27/16 at 00:00 Lisinopril (Zestril) 10 mg DAILY PO Last administered on 08/28/16 08:29; Admin Dose 10 MG; Start 08/27/16 at 09:00 Carvedilol (Coreg) 6.25 mg BID PO Last administered on 08/28/16 19:42; Admin Dose 6.25 MG; Start 08/27/16 at 09:00 Multivit/Ca Carb/ B Cmplx/FA/Prenat (Carmen-Rafael) 1 tab DAILY PO Last administered on 08/28/16 08:28; Admin Dose 1 TAB; Start 08/27/16 at 09:00 Acetaminophen/ Hydrocodone Bitart ([place] (5/325)) 1 tab Q4H PRN PO PAIN Last administered on 08/28/16 05:50; Admin Dose 1 TAB; Start 08/27/16 at 08:00 Pantoprazole (Protonix Tab) 40 mg DAILY@06 PO Last administered on 08/28/16 05 :50; Admin Dose 40 MG; Start 08/28/16 at 06:00 Epoetin Shay 42434 units 10,000 units TuThSa@17 SC Last administered on 17:03; Admin Dose 10,000 UNITS; Start 08/27/16 at 17:00 Piperacillin Sod/ Tazobactam Sod (Zosyn 2.25gm/ 50ml (Pmx)) 50 ml @ 100 mls/hr Q8 IVPB Last administered on 08/29/16 06:00; Admin Dose 100 MLS/HR; Start 08/27 at 14:00 Hydromorphone HCl (Dilaudid) 1 mg Q6H PRN IV PAIN Last administered on 11:38; Admin Dose 1 MG; Start 08/27/16 at 18:00 Clonidine (Catapres) 0.1 mg QID PO ; Start 08/28/16 at 09:00 BRENDEN VALE MD August 29, 2016 08:31
[2016-08-29 08:42] VITALS: BP 184/88; RESP 20
[2016-08-29] MEDS: MULTIVIT/CA CARB/B CMPLX/FA TAB PO SCH (09:00)
[2016-08-29] MEDS: SEVELAMER 800 MG TAB PO SCH ×3 (09:10→17:36)
[2016-08-29] MEDS: LISINOPRIL 20 MG TAB PO SCH (09:11)
[2016-08-29] MEDS: SOD FERRIC GLUC COMPLX 125 MG in SOD CHLORIDE 0.9% 100 ML IVPB SCH (10:39)
[2016-08-29] MEDS: NAPROXEN 500 MG TAB PO SCH ×2 (12:20→17:35)
[2016-08-29 15:43] VITALS: BP 187/84; PULSE 72
[2016-08-29] MEDS: EPOETIN 10000 UNITS/1 ML INJ (ESRD) SC SCH (17:00)
[2016-08-29 20:04] VITALS: BP 214/92; RESP 20
[2016-08-29] MEDS: HYDROmorphONE 1 MG/ML SYG IV PRN (20:56)
[2016-08-30] VITALS (12 sets, daily range): BP systolic 127–205; BP diastolic 56–107; PULSE 74–88; RESP 16
[2016-08-30] MEDS: PIPER-TAZO 2.25 GM (PMX) 50 ML IVPB SCH (05:43)
[2016-08-30] MEDS: PANTOPRAZOLE (EC) 40 MG TAB PO SCH ×2 (05:44→09:01)
[2016-08-30] MEDS ORDERED: VANCOMYCIN 1.25 GM in SOD CHLORIDE 0.9% 250 ML IVPB ONE ×2 (08:00→15:00)
--- NOTE | 2016-08-30 08:16 | PN ---
Date/Time of Note Date/Time of Note DATE: 08/30/16 TIME: 08:12 Assessment/Plan VTE Prophylaxis VTE Prophylaxis Intervention: other Lines/Catheters IV Catheter Type (from Nrsg): Saline Lock Urinary Cath still in place: No Assessment/Plan Assessment/Plan 1. No signif change in swelling left upper extrem, ultz ordered to eval for fluid collection, will ask ID and vasc to see. 2. CKD, to be HD today 3. BP still labile, will add Adalat CC and change catapres to "routine" 4. Anemia is better, iron is being replaced. Subjective 24 Hr Interval Summary Respiratory: No cough, No shortness of breath Cardiovascular: No chest pain Genitourinary: no complaints Musculoskeletal: other (left arm swelling has not improved signifigantly nor has pain) Exam/Review of Systems Vital Signs Vitals Vital Signs Date Time Temp Pulse Resp B/P Pulse Ox O2 Delivery O2 Flow Rate FiO2 08/29/16 20:04 98.6 83 20 214/92 98 08/27/16 06:30 Room Air Intake and Output 08/29/16 08/29/16 08/30/16 15:00 23:00 07:00 Intake Total 110 ml 700 ml 410 ml Balance 110 ml 700 ml 410 ml Exam Neck: No jvd Respiratory: clear to auscultation Cardiovascular: regular rate and rhythm Gastrointestinal: soft Extremities: No other (no edema of extrem, left upper extrem is still warm firm and sl tender, bruit is present) Results Result Diagram: 08/29/16 0458 08/29/16 0458 Medications Medications Current Medications Ondansetron HCl (Zofran Tab) 4 mg Q6H PRN PO NAUSEA AND/OR VOMITING; Start 08/26 at 22:00 Acetaminophen (Tylenol Tab) 650 mg Q6H PRN PO PAIN LEVEL 1-3 OR FEVER; Start at 22:00 Zolpidem Tartrate (Ambien) 5 mg QHS PRN PO SLEEP; Start 08/26/16 at 22:00 Clonidine (Catapres) 0.2 mg TID PRN PO SBP ABOVE 170 Last administered on t 20:14; Admin Dose 0.2 MG; Start 08/27/16 at 00:00 Multivit/Ca Carb/ B Cmplx/FA/Prenat (Carmen-Rafael) 1 tab DAILY PO Last administered on 08/28/16 08:28; Admin Dose 1 TAB; Start 08/27/16 at 09:00 Acetaminophen/ Hydrocodone Bitart ([place] (5/325)) 1 tab Q4H PRN PO PAIN Last administered on 08/28/16 05:50; Admin Dose 1 TAB; Start 08/27/16 at 08:00 Pantoprazole (Protonix Tab) 40 mg DAILY@06 PO Last administered on 08/28/16 05 :50; Admin Dose 40 MG; Start 08/28/16 at 06:00 Epoetin Shay 97434 units 10,000 units TuThSa@17 SC Last administered on 17:03; Admin Dose 10,000 UNITS; Start 08/27/16 at 17:00 Piperacillin Sod/ Tazobactam Sod (Zosyn 2.25gm/ 50ml (Pmx)) 50 ml @ 100 mls/hr Q8 IVPB Last administered on 08/30/16 05:43; Admin Dose 100 MLS/HR; Start 08/27 at 14:00 Hydromorphone HCl (Dilaudid) 1 mg Q6H PRN IV PAIN Last administered on 20:56; Admin Dose 1 MG; Start 08/27/16 at 18:00 Carvedilol (Coreg) 12.5 mg BID PO Last administered on 08/29/16 20:15; Admin Dose 12.5 MG; Start 08/29/16 at 09:00 Lisinopril 20 mg 20 mg DAILY PO Last administered on 08/29/16 09:11; Admin Dose 20 MG; Start 08/29/16 at 09:00 Ferric Sodium Gluconate Complex 125 mg/Sodium Chloride 110 ml @ 110 mls/hr Q24H IVPB Last administered on 08/29/16 10:39; Admin Dose 110 MLS/HR; Start at 10:00; Stop 09/02/16 at 10:59 Vancomycin HCl/ Sodium Chloride (Vancocin/NS) 250 ml @ 83.333 mls/ hr ONCE ONCE IVPB ; Start 08/30/16 at 08:00; Stop 08/30/16 at 10:59 TASHA AYOUB MD August 30, 2016 08:16
[2016-08-30] MEDS ORDERED: VANCOMYCIN IV PER PHARMACY XX SCH (08:30)
[2016-08-30] MEDS: SEVELAMER 800 MG TAB PO SCH ×3 (08:51→18:00)
[2016-08-30] MEDS: NIFEdipine (XL) 30 MG TAB PO SCH ×3 (09:00→22:12)
[2016-08-30] MEDS: MULTIVIT/CA CARB/B CMPLX/FA TAB PO SCH (09:00)
[2016-08-30] MEDS: LISINOPRIL 20 MG TAB PO SCH (09:03)
[2016-08-30] MEDS: SOD FERRIC GLUC COMPLX 125 MG in SOD CHLORIDE 0.9% 100 ML IVPB SCH (10:00)
--- NOTE | 2016-08-30 10:29 | CONS ---
Date/Time of Note Date/Time of Note DATE: 08/30/16 TIME: 10:14 Assessment/Plan Assessment/Plan Chief Complaint/Hosp Course 1) L forearm swelling with cellulitis and cephalic vein clot overall he is improved with less heat and redness according to the patient he also has become afebrile and wbc is lower continue with vanco alone at this time, can d/c zosyn this is the second clot that pt has developed in the last year, consider Heme consult for possible hypercoagulable state eval 2) ESRD 3) DM 4) recent lap choley 5) cardiomyopathy Problems: Consultation Date/Type/Reason Admit Date/Time August 26, 2016 at 21:51 Date of Consultation: August 30, 2016 Type of Consultation: ID Hx of Present Illness pt developed swelling of L forearm with redness and pain 1 day prior to admission He had some chills initially which have resolved. No N, V, D No SOB, cough, No abd pain Pt had a clot to RUE in the last year that had to be removed by Dr. Lopez Respiratory: No cough, No shortness of breath Cardiovascular: No chest pain Gastrointestinal: no complaints Genitourinary: no complaints Musculoskeletal: other (left arm swelling has not improved signifigantly nor has pain) Psychological: no complaints Past Medical History HTN, ESRD, cardiomyopathy Past Surgical History fistula, L BKA, LUE AV graft Social History Smoking Status: Never smoker Exam/Review of Systems Vital Signs Vitals Vital Signs Date Time Temp Pulse Resp B/P Pulse Ox O2 Delivery O2 Flow Rate FiO2 08/30/16 09:12 97.9 76 16 205/95 99 08/27/16 06:30 Room Air Intake and Output 08/29/16 08/29/16 08/30/16 15:00 23:00 07:00 Intake Total 110 ml 700 ml 410 ml Balance 110 ml 700 ml 410 ml Exam Constitutional: alert, oriented Head: normocephalic Eyes: nl sclera ENMT: mucosa pink and moist Respiratory: clear to auscultation Cardiovascular: regular rate and rhythm Gastrointestinal: non-tender, soft Extremities: other (L forearm is swollen without much redness but slight increase in warmth, no open wound/sores appreciated, L BKA noted) Results Result Diagram: 08/29/16 0458 08/29/16 0458 Medications Medications Current Medications Ondansetron HCl (Zofran Tab) 4 mg Q6H PRN PO NAUSEA AND/OR VOMITING; Start 08/26 at 22:00 Acetaminophen (Tylenol Tab) 650 mg Q6H PRN PO PAIN LEVEL 1-3 OR FEVER; Start at 22:00 Zolpidem Tartrate (Ambien) 5 mg QHS PRN PO SLEEP; Start 08/26/16 at 22:00 Multivit/Ca Carb/ B Cmplx/FA/Prenat (Carmen-Rafael) 1 tab DAILY PO Last administered on 08/28/16 08:28; Admin Dose 1 TAB; Start 08/27/16 at 09:00 Acetaminophen/ Hydrocodone Bitart ([place] (5/325)) 1 tab Q4H PRN PO PAIN Last administered on 08/28/16 05:50; Admin Dose 1 TAB; Start 08/27/16 at 08:00 Pantoprazole (Protonix Tab) 40 mg DAILY@06 PO Last administered on 08/30/16 09 :01; Admin Dose 40 MG; Start 08/28/16 at 06:00 Epoetin Shay 51780 units 10,000 units TuThSa@17 SC Last administered on 17:03; Admin Dose 10,000 UNITS; Start 08/27/16 at 17:00 Piperacillin Sod/ Tazobactam Sod (Zosyn 2.25gm/ 50ml (Pmx)) 50 ml @ 100 mls/hr Q8 IVPB Last administered on 08/30/16 05:43; Admin Dose 100 MLS/HR; Start 08/27 at 14:00 Hydromorphone HCl (Dilaudid) 1 mg Q6H PRN IV PAIN Last administered on 20:56; Admin Dose 1 MG; Start 08/27/16 at 18:00 Lisinopril 20 mg 20 mg DAILY PO Last administered on 08/30/16 09:03; Admin Dose 20 MG; Start 08/29/16 at 09:00 Ferric Sodium Gluconate Complex/ Sodium Chloride (Ferrlecit/NS) 110 ml @ 110 mls/hr Q24H IVPB Last administered on 08/29/16 10:39; Admin Dose 110 MLS/HR; Start 08/29/16 at 10:00; Stop 09/02/16 at 10:59 Carvedilol (Coreg) 25 mg BID PO Last administered on 08/30/16t 09:02; Admin Dose 25 MG; Start 08/30/16 at 09:00 Clonidine (Catapres) 0.2 mg TID PO ; Start 08/30/16 at 09:00 Nifedipine (Procardia Xl) 30 mg BID PO ; Start 08/30/16 at 09:00 Vancomycin HCl PER PHARMACY DOSING NOTE XX ; Start 08/30/16 at 08:30 Vancomycin HCl/ Sodium Chloride (Vancocin/NS) 250 ml @ 83.333 mls/ hr ONCE ONCE IVPB ; Start 08/30/16 at 15:00; Stop 08/30/16 at 17:59 STEPHANE PRECIADO MD August 30, 2016 10:24
--- NOTE | 2016-08-30 10:35 | CONS ---
DATE OF ADMISSION: 08/26/2016 DATE OF CONSULTATION: 08/30/2016 REFERRING PHYSICIAN: Dr. Tasha Ayoub. REASON FOR CONSULTATION: Evaluate left arm pain and swelling. HISTORY OF PRESENT ILLNESS: This is a 36-year-old gentleman. He was admitted on 08/26/2016 with le ft forearm and hand swelling and redness ____. This patient has a left upper arm AV fistula. It lo oks like a transposed basilic vein fistula that was created several months ago. The fistula has bee n functioning, but he noted edema and pain in the left forearm which began again 4 days ago. He cam e here to the ER. He has been on some IV antibiotics and keeping the arm elevated, it is improved, b ut he still has a significant amount of swelling in the forearm and hand. 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 He has had multiple catheters in both IJs in the past. PAST MEDICAL HISTORY: Significant for hypertension and end-stage renal disease. He has had a left below knee amputation in the past. He has had problems with his vision. He has had several eye surg eries. He has cardiomyopathy. He is a diabetic. He is diet controlled diabetic. He has had multipl e failed access using the right arm. He has had cholecystitis and laparoscopic cholecystectomy in past. He has reflux. He has had gangrene of the left foot. PAST SURGICAL HISTORY: Again, significant for multiple AV accesses using both arms, most recently l eft upper arm AV fistula. He has left BKA, cholecystectomy. MEDICATIONS: Consist of: 1. Renvela. 2. Nephro-Rafael. 3. Nifedipine. 4. Vancomycin. 5. Coreg. 6. Catapres. 7. Procardia. ALLERGIES: SULFA. SOCIAL HISTORY: He is a nonsmoker. He does not drink or use any illicit drugs. All of his arm acc ess have been done by Dr. Lopez at [facility]. REVIEW OF SYSTEMS: He currently denies any chest pain, shortness of breath, nausea, vomiting, diarr hea. No fever, no chills, no recent weight gain or weight loss. He basically just complains of his left forearm and hand edema but he states it has improved. He has been keeping the arm elevated. H e said it was more red when he came in. PHYSICAL EXAMINATION: GENERAL: He is a young gentleman. He speaks Kinyarwanda fluently. He appears older than his stated age. VITAL SIGNS: He is afebrile. His blood pressure is 205/95, heart rate 76, respiratory rate is 16. He is 99% sat on room air. NECK: He has 2+ carotid pulses bilaterally. EXTREMITIES: He has got scars from previous internal jugular vein catheters bilaterally in the neck and chest wall. On the right side he has had a right upper arm AV fistula and/or graft removed rece ntly. There are some dressings on it and a little bit of drainage. He has a left upper arm AV fist eddie which is functional. It looks like a transposed basilic fistula. The vein runs right under the incision, a scar but it has got a good thrill and it has been accessed well without any problems. Lilia lagunas has 2 to 3+ edema. It is pitting edema in the forearm and hand. His hand is warm and pink. There is no sign of ischemia. LUNGS: Clear. HEART: Regular rate and rhythm. ABDOMEN: Soft, nontender, nondistended. He has a left below knee amputation that is well healed. On the right he has no wounds. Foot is warm and pink. I do not feel pedal pulses. He has 2+ popli teal pulse. He had a duplex when he came in that showed no DVT in the left arm with occluded cephali c vein in the upper arm and there is just a lot of edema. IMPRESSION: Left arm and hand swelling with a functional left upper arm brachiobasilic AV fistula. It looks like a central venous stenosis. His symptoms have improved with arm elevation and some ant ibiotics over the last several days. I think most of this is just due to venous congestion from edmund tral venous stenosis. He had the same problem on the other side. He may even have a SVC occlusion. I told him to keep it elevated and keep wrapping it with an Chadwick wrap will help as well, but he is c omfortable with Dr. Lopez and wanted to go back to see him. So, I told him that if he could follow up with Dr. Lopez for a fistulogram and treat the central venous stenosis I do not think this is p rimarily a cellulitis. I think it is mostly inflammation from venous congestion. Dictated By: TIFFANIE VALLECILLO/GARCIA Conf#: [id number] DID#: [id number] CC: TASHA AYOUB MD; JACIEL KIMBLE MD; BRENDEN VALE MD;*EndCC*
--- NOTE | 2016-08-30 11:12 | RADRPT ---
PROCEDURE: Ultrasound extremity CLINICAL INDICATION: Left arm swelling, question abscess TECHNIQUE: Ultrasound of the left upper extremity over the elbow and forearm was performed with gr ay scale and color Doppler images obtained. COMPARISON: None available FINDINGS: There is subcutaneous edema - fluid in the elbow and forearm region. A discrete focal fluid collect ion is not seen. IMPRESSION: Subcutaneous edema - fluid at the left elbow - forearm without discrete focal fluid collection seen. If there is persistent clinical concern, follow-up with contrast enhanced MRI is advised. RPTAT: VV .Gualberto Alexander MD, MD Date Time Electronically viewed and signed by .Gualberto Alexander MD, MD on 08/30/2016 11:12 .O/
[2016-08-30] MEDS: NAPROXEN 500 MG TAB PO SCH (12:00)
[2016-08-31] MEDS: PANTOPRAZOLE (EC) 40 MG TAB PO SCH (05:23)
[2016-08-31 07:05] LABS: ADD SCAN DIFF NO
[2016-08-31 07:11] LABS: BASOPHILS % 0.2 % (0.0-2.0); EOSINOPHILS # 0.3 10^3/ul (0.0-0.5); HEMATOCRIT 27.2 % (42.0-52.0); HEMOGLOBIN 8.4 g/dl (14.0-18.0); LYMPHOCYTES # 1.1 10^3/ul (0.8-2.9); LYMPHOCYTES % 12.4 % (15.0-51.0); MEAN CORPUSCULAR HEMOGLOBIN 30.4 pg (29.0-33.0); MEAN CORPUSCULAR HGB CONC 30.9 g/dl (32.0-37.0); MEAN CORPUSCULAR VOLUME 98.6 fl (82.0-101.0); MEAN PLATELET VOLUME 10.5 fl (7.4-10.4); MONOCYTE # 1.2 10^3/ul (0.3-0.9); MONOCYTES % 14.2 % (0.0-11.0); NEUTROPHIL # 6.1 10^3/ul (1.6-7.5); NEUTROPHILS % 69.9 % (39.0-77.0); PLATELET COUNT 237 10^3/UL (140-415); RED BLOOD COUNT 2.76 10^6/ul (4.70-6.10); RED CELL DISTRIBUTION WIDTH 18.7 % (11.5-14.5); WHITE BLOOD COUNT 8.7 10^3/ul (4.8-10.8)
[2016-08-31 07:51] LABS: POTASSIUM 4.4 mmol/L (3.5-5.1)
[2016-08-31 07:53] LABS: CREATININE 8.53 mg/dl (0.61-1.24)
[2016-08-31 07:54] LABS: CALCIUM 7.4 mg/dl (8.4-10.2)
[2016-08-31 08:04] VITALS: BP 142/65; RESP 16
[2016-08-31] MEDS: SEVELAMER 800 MG TAB PO SCH ×2 (08:45→12:15)
[2016-08-31] MEDS: LISINOPRIL 20 MG TAB PO SCH (09:00)
[2016-08-31] MEDS: NIFEdipine (XL) 30 MG TAB PO SCH (09:00)
[2016-08-31] MEDS: MULTIVIT/CA CARB/B CMPLX/FA TAB PO SCH (09:00)
[2016-08-31] MEDS: SOD FERRIC GLUC COMPLX 125 MG in SOD CHLORIDE 0.9% 100 ML IVPB SCH (10:00)
[2016-08-31] MEDS ORDERED: NIFE60TA7 PO (13:20)
[2016-08-31] MEDS ORDERED: CARV25TA79 PO (13:20)
[2016-08-31] MEDS ORDERED: LORA-444 PO (13:20)
--- NOTE | 2016-08-31 13:30 | PDOCDIS ---
Discharge Instructions CONDITION Patient Condition: Good HOME CARE INSTRUCTIONS: Special Diet: RENAL ACTIVITY: Activity Restrictions: No Restrictions Bathing Restrictions: Shower FOLLOW UP/APPOINTMENTS Appointments Dialysis unit 09/02/2016 ULISES ALMEIDA MD August 31, 2016 13:30
--- NOTE | 2016-08-31 13:37 | PN ---
Date/Time of Note Date/Time of Note DATE: 08/31/16 TIME: 13:32 Assessment/Plan VTE Prophylaxis VTE Prophylaxis Intervention: anti-embolic stocking Lines/Catheters IV Catheter Type (from Nrs): Saline Lock Urinary Cath still in place: No Assessment/Plan Assessment/Plan 1. LUE edema improved. 2. ESRD. s/p HD yesterday, next in 2 days as outpatient. 3. BP improved 4. Hb stable 5. Discharge today. Dr. Franco will see him Friday on dialysis and he will follow up with Dr. Lopez (vascular surgery) Subjective 24 Hr Interval Summary Free Text/Dictation Alert, no complaints. Feels that there is less swelling of his arm. Exam/Review of Systems Vital Signs Vitals Vital Signs Date Time Temp Pulse Resp B/P Pulse Ox O2 Delivery O2 Flow Rate FiO2 08/31/16 08:04 98.2 142 16 142/65 97 Intake and Output 08/30/16 08/30/16 08/31/16 15:00 23:00 07:00 Intake Total 1120 ml 650 ml Output Total 4300 ml Balance -3180 ml 650 ml Exam Constitutional: alert, oriented Head: normocephalic Neck: supple, No jvd Respiratory: clear to auscultation Cardiovascular: regular rate and rhythm Gastrointestinal: soft Extremities: edema (MORALES edematous with mild erythema) Results Result Diagram: 08/31/16 0500 08/31/16 0500 Results 24 hrs Laboratory Tests Test 08/31/16 05:00 White Blood Count 8.7 Red Blood Count 2.76 L Hemoglobin 8.4 L Hematocrit 27.2 L Mean Corpuscular Volume 98.6 Mean Corpuscular Hemoglobin 30.4 Mean Corpuscular Hemoglobin Concent 30.9 L Red Cell Distribution Width 18.7 H Platelet Count 237 Mean Platelet Volume 10.5 H Neutrophils % 69.9 Lymphocytes % 12.4 L Monocytes % 14.2 H Eosinophils % 3.0 Basophils % 0.2 Nucleated Red Blood Cells % 0.0 Neutrophils # 6.1 Lymphocytes # 1.1 Monocytes # 1.2 H Eosinophils # 0.3 Basophils # 0.0 Nucleated Red Blood Cells # 0.0 Sodium Level 140 Potassium Level 4.4 Chloride Level 98 Carbon Dioxide Level 25 Anion Gap 21 H Blood Urea Nitrogen 43 H Creatinine 8.53 H Glucose Level 159 Calcium Level 7.4 L Phosphorus Level 7.0 H Medications Medications Current Medications Ondansetron HCl (Zofran Tab) 4 mg Q6H PRN PO NAUSEA AND/OR VOMITING; Start 08/26 at 22:00 Acetaminophen (Tylenol Tab) 650 mg Q6H PRN PO PAIN LEVEL 1-3 OR FEVER; Start at 22:00 Zolpidem Tartrate (Ambien) 5 mg QHS PRN PO SLEEP; Start 08/26/16 at 22:00 Multivit/Ca Carb/ B Cmplx/FA/Prenat (Carmen-Rafael) 1 tab DAILY PO Last administered on 08/28/16 08:28; Admin Dose 1 TAB; Start 08/27/16 at 09:00 Acetaminophen/ Hydrocodone Bitart ([place] (5/325)) 1 tab Q4H PRN PO PAIN Last administered on 08/28/16 05:50; Admin Dose 1 TAB; Start 08/27/16 at 08:00 Pantoprazole (Protonix Tab) 40 mg DAILY@06 PO Last administered on 08/31/16 05 :23; Admin Dose 40 MG; Start 08/28/16 at 06:00 Epoetin Shay (Epogen (Esrd)) 10,000 units TuThSa@17 SC Last administered on 08/27 17:03; Admin Dose 10,000 UNITS; Start 08/27/16 at 17:00 Hydromorphone HCl (Dilaudid) 1 mg Q6H PRN IV PAIN Last administered on 20:56; Admin Dose 1 MG; Start 08/27/16 at 18:00 Lisinopril 20 mg 20 mg DAILY PO Last administered on 08/30/16 09:03; Admin Dose 20 MG; Start 08/29/16 at 09:00 Ferric Sodium Gluconate Complex/ Sodium Chloride (Ferrlecit/NS) 110 ml @ 110 mls/hr Q24H IVPB Last administered on 08/29/16 10:39; Admin Dose 110 MLS/HR; Start 08/29/16 at 10:00; Stop 09/02/16 at 10:59 Carvedilol (Coreg) 25 mg BID PO Last administered on 08/30/16 22:12; Admin Dose 25 MG; Start 08/30/16 at 09:00 Clonidine (Catapres) 0.2 mg TID PO Last administered on 08/31/16t 08:46; Admin Dose 0.2 MG; Start 08/30/16 at 09:00 Nifedipine (Procardia Xl) 30 mg BID PO ; Start 08/30/16 at 09:00 Vancomycin HCl (Vanco Iv Per Pharmacy) PER PHARMACY DOSING NOTE XX ; Start 08/30 at 08:30 ULISES ALMEIDA MD August 31, 2016 13:37
--- NOTE | 2016-09-03 04:01 | DS ---
DATE OF ADMISSION: 08/26/2016 DATE OF DISCHARGE: 08/31/2016 REASON FOR ADMISSION: Cellulitis, left forearm. HISTORY OF PRESENT ILLNESS: Please see my full dictated history and physical for details. Briefly, a 36-year-old gentleman with end-stage renal disease due to diabetic nephropathy, maintaine d on outpatient hemodialysis every Friday, Friday, and Friday, who also has a known ischemic card iomyopathy, severe peripheral vascular disease, and hypertension. He recently underwent a laparosco pic cholecystectomy and is now admitted with cellulitis and edema of the left forearm. HOSPITAL COURSE: The patient was admitted, pancultured, and empirically begun on intravenous vancom ycin and Zosyn. The left upper extremity venous ultrasound showed no evidence of a DVT but did show superficial thrombosis of the cephalic vein in the left forearm. With elevation and antibiotics, the erythema and edema gradually defervesced, although it did not to tally resolve. Cultures remained negative throughout his stay, and his white count normalized. No fever. He did receive a vascular consultation with Dr. Ellison who noted the functional left arm brachiocepha lic AV fistula and felt that the forearm edema was due to a central venous stenosis which we know he has. Therefore, when all evidence of infection had resolved, the patient was discharged, and he is to fol low up with Dr. Lopez, his vascular surgeon, to see if he will need a fistulogram and/or treatment for possible central venous stenosis. DISCHARGE DIAGNOSES: 1. Cellulitis, left forearm, improved with intravenous vancomycin and Zosyn. 2. Edema, left forearm, rule out due to central venous stenosis to be followed up as an outpatient. 3. End-stage renal disease due to diabetic nephropathy, maintained on outpatient hemodialysis every Friday, Friday, and Friday. 4. Diabetes mellitus, currently diet controlled. 5. Peripheral vascular disease, status post left BKA in the distant past. 6. Nonischemic cardiomyopathy with EF of 35%, started on carvedilol and lisinopril. 7. Gastroesophageal reflux disease, controlled on omeprazole. 8. Acute cholecystitis status post laparoscopic cholecystectomy with Dr. Ervin in July of 2016. 9. Hypertension. 10. Anemia of end-stage renal disease. 11. Recent ligation of aneurysmal right upper extremity AV fistula with placement of new left upper extremity AV fistula at [facility]. DISPOSITION: Home. FOLLOWUP: Will be with Dr. Franco and Dr. Lopez. DISCHARGE MEDICATIONS: As per the medical reconciliation sheet. Dictated By: BRENDEN FRANCO MD, MM/GARCIA Conf#: [id number] DID#: [id number]
== END 2016-08-31 16:25 | disposition home or self-care (01) | DRG 602 ==
LOC: E/R 17:56 → MS2 21:51
PROVIDERS: ADMIT Internal Medicine; ATTEND Internal Medicine
PROC: 5A1D60Z (ICD-10-PCS; principal; 2016-08-27)
DX: L03.114 Cellulitis of left upper limb (principal); N18.6 End stage renal disease; I12.0 Hypertensive chronic kidney disease with stage 5 chronic kidney disease or end stage renal disease; I42.8 Other cardiomyopathies; K81.0 Acute cholecystitis; E11.22 Type 2 diabetes mellitus with diabetic chronic kidney disease; I82.612 Acute embolism and thrombosis of superficial veins of left upper extremity; I73.9 Peripheral vascular disease, unspecified; E11.40 Type 2 diabetes mellitus with diabetic neuropathy, unspecified; D63.1 Anemia in chronic kidney disease; K21.9 Gastro-esophageal reflux disease without esophagitis; E11.51 Type 2 diabetes mellitus with diabetic peripheral angiopathy without gangrene; R60.0 Localized edema; Z89.512 Acquired absence of left leg below knee; Z88.2 Allergy status to sulfonamides; Z99.2 Dependence on renal dialysis
CPT/HCPCS: 36415; 80048; 80053; 82728; 83540; 84100; 85025; 87040; 87081; 90935; 93971; 96365; 96366; 96368; J0886; J1170; J2543; J2916; J3370; J7030; J7050

== ENCOUNTER 2016-12-15 12:41 | Inpatient (IN) | payer MEDICARE, OTHER ==
[~2016-12-15] VITALS: Ht 167.6 cm; Wt 107.0 kg
[~2016-12-15 12:41] MED LIST changes: +CARV25TA79 PO; -CIPR500T4 PO; +LORA-444 PO; -METR500T PO; -NIFE60TA36 PO; +NIFE60TA7 PO
[2016-12-15 17:29] LABS: BASOPHILS % 0.5 % (0.0-2.0); EOSINOPHILS # 0.2 10^3/ul (0.0-0.5); EOSINOPHILS % 2.5 % (0.0-7.0); HEMATOCRIT 34.3 % (42.0-52.0); HEMOGLOBIN 11.4 g/dl (14.0-18.0); LYMPHOCYTES # 1.2 10^3/ul (0.8-2.9); LYMPHOCYTES % 14.3 % (15.0-51.0); MEAN CORPUSCULAR HEMOGLOBIN 32.9 pg (29.0-33.0); MEAN CORPUSCULAR HGB CONC 33.2 g/dl (32.0-37.0); MEAN CORPUSCULAR VOLUME 98.8 fl (82.0-101.0); MEAN PLATELET VOLUME 11.1 fl (7.4-10.4); MONOCYTE # 0.7 10^3/ul (0.3-0.9); MONOCYTES % 8.2 % (0.0-11.0); NEUTROPHILS % 74.1 % (39.0-77.0); PLATELET COUNT 145 10^3/UL (140-415); RED BLOOD COUNT 3.47 10^6/ul (4.70-6.10); RED CELL DISTRIBUTION WIDTH 16.9 % (11.5-14.5); WHITE BLOOD COUNT 8.5 10^3/ul (4.8-10.8)
--- NOTE | 2016-12-15 17:33 | RADRPT ---
PROCEDURE: XR Chest. CLINICAL INDICATION: Sepsis. TECHNIQUE: Single frontal view. COMPARISON: 08/05/2016. FINDINGS: There is mild basilar atelectasis. The lungs are otherwise clear. The heart size is normal. There is no pleural effusion. There is no pneumothorax. IMPRESSION: 1. Mild left basilar atelectasis. 2. Otherwise normal chest x-ray. RPTAT: QQ .Kristopher Ochoa MD, MD Date Time Electronically viewed and signed by .Kristopher Ochoa MD, on 12/15/2016 17:33 .R/
[2016-12-15 17:51] LABS: ALBUMIN 4.3 g/dl (3.3-4.9); ALBUMIN/GLOBULIN RATIO 0.84; BILIRUBIN,INDIRECT 0.1 mg/dl (0-1.1); BILIRUBIN,TOTAL 0.1 mg/dl (0.2-1.3); CALCIUM 8.7 mg/dl (8.4-10.2); CREATININE 9.24 mg/dl (0.61-1.24); POTASSIUM 4.2 mmol/L (3.5-5.1); TOTAL PROTEIN 9.4 g/dl (6.1-8.1)
--- NOTE | 2016-12-15 19:21 | RADRPT ---
PROCEDURE: Left upper extremity venous ultrasound CLINICAL INDICATION: Left arm pain and swelling. Deep venous thrombosis. TECHNIQUE: Carlisle scale, color doppler, spectral doppler ultrasound imaging of the venous system of the left upper extremity. Augmentation maneuvers were utilized. COMPARISON: 08/26/2016 FINDINGS: LEFT: Internal jugular vein: Patent. Subclavian vein: Patent. Axillary vein: Patent. Brachial vein: Patent. Basilic vein: Patent. Cephalic vein: Patent. Radial vein: Patent. Ulnar vein: Patent. Subcutaneous edema is present distally. IMPRESSION: No evidence of a deep vein thrombosis involving the left upper extremity. Brachial-basilic fistula is patent. Subcutaneous edema is present distally. RPTAT: AADD .Eliel Ogden MD, MD Date Time Electronically viewed and signed by .Eliel Ogden MD, on 12/15/2016 19:21 .B/
[2016-12-15] MEDS ORDERED: IODIXANOL LOCM 100 ML BTL ONE (20:52)
[2016-12-15] MEDS ORDERED: SOD CHLORIDE 0.9% 100 ML ONE (20:52)
[2016-12-15] MEDS ORDERED: ALBUTEROL 0.083% (NEB) 2.5 MG/3 ML AMP INH STA (21:11)
[2016-12-15] MEDS ORDERED: IPRATROPIUM (NEB) 0.5 MG/2.5 ML AMP INH STA (21:11)
--- NOTE | 2016-12-15 22:10 | ERA ---
ER Documentation Chief Complaint Date/Time DATE: 12/15/16 TIME: 21:51 Chief Complaint LEFT ARM PAIN, DIALYSIS PT, PREVIOUS ADMISSIONS FOR SAME S/S HPI This is a 36-year-old male with a history of diabetes complicated by diabetic foot ulcers requiring a left BKA, end-stage renal disease on dialysis with complications of multiple AV fistulas with failures of fistulas in his right arm and a recent occlusion of a left AV fistula requiring stenting approximately 1 week ago who is presenting with concerns of an AV fistula malfunction in addition to progressive worsening shortness of breath over the last few days. The patient also endorses an increase in weight over the last few weeks as well while they have been dealing with his AV fistula issues. The patient was at dialysis today, but the tech reported that they are unable to get his rate up to normal and there was concerns about it eventually clotting off again. He decided to come to the ER for further evaluation of his fistula and shortness of breath. The patient not been sick recently. He does not endorse any fever or chills. He denies chest pain. He denies abdominal pain. He denies changes to bowel movements. He is anuric. He does have swelling of his upper extremities. He has not had any issues with his right lower extremity ROS All systems reviewed and are negative except as per history of present illness. Medications Home Meds Active Scripts Carvedilol* (Carvedilol*) 25 Mg Tablet, 25 MG PO BID for 30 Days, #60 TAB Prov:ULISES ALMEIDA MD 08/31/16 Lorazepam* (Ativan*) 2 Mg Tablet, 2 MG PO Q8 Y for ANXIETY for 60 Days, #60 TAB Prov:ULISES ALMEIDA MD 08/31/16 Nifedipine* (Nifedipine ER*) 60 Mg Tablet.sa, 60 MG PO DAILY for 30 Days, #30 TAB.SA Prov:ULISES ALMEIDA MD 08/31/16 Reported Medications Sevelamer Carbonate* (Renvela*) 800 Mg Tablet, 3200 MG PO WITH MEALS, TAB 09/25/14 Allergies Allergies: Coded Allergies: sulfamethoxazole (Verified Allergy, Unknown, SWELLING, 08/26/16) trimethoprim (Verified Allergy, Unknown, SWELLING, 08/26/16) PMhx/Soc History of Surgery: Yes (Retina x 2, fistula/grafts x 4, L BKA) Anesthesia Reaction: No Hx Neurological Disorder: No Hx Respiratory Disorders: No Hx Cardiac Disorders: Yes (HTN) Hx Psychiatric Problems: No Hx Miscellaneous Medical Probl: Yes (DM, ESRD (M,W,Th.S)) Hx Alcohol Use: No Hx Substance Use: No Hx Tobacco Use: No Smoking Status: Never smoker FmHx Family History: diabetes Physical Exam Vitals Vital Signs Date Time Temp Pulse Resp B/P Pulse Ox O2 Delivery O2 Flow Rate FiO2 12/15/16 21:26 100 2.0 12/15/16 21:26 81 20 100 Nasal Cannula 2.0 12/15/16 17:36 86 18 208/88 95 Nasal Cannula 2.0 12/15/16 12:48 98.5 86 17 210/87 96 Physical Exam Const: NAD Head: Atraumatic Eyes: Normal Conjunctiva ENT: Normal External Ears, Nose and Mouth. Neck: Full range of motion..~ No meningismus. Resp: Clear to auscultation bilaterally, mild bibasilar rales Cardio: Regular rate and rhythm, no murmurs Abd: Soft, non tender, non distended. Normal bowel sounds Skin: No petechiae or rashes Back: No midline or flank tenderness Ext: No cyanosis, BUE edema L>R, multiple fistula sites and scarring to the right arm with no palpable thrill. Palpable thrill to AV fistula of LUE. L BKA Neur: Awake and alert Psych: Normal Mood and Affect Result Diagram: 12/15/16 1715 12/15/16 1715 Results 24 hrs Laboratory Tests Test 12/15/16 17:15 White Blood Count 8.510^3/ul Red Blood Count 3.4710^6/ul Hemoglobin 11.4g/dl Hematocrit 34.3% Mean Corpuscular Volume 98.8fl Mean Corpuscular Hemoglobin 32.9pg Mean Corpuscular Hemoglobin Concent 33.2g/dl Red Cell Distribution Width 16.9% Platelet Count 77901^3/UL Mean Platelet Volume 11.1fl Neutrophils % 74.1% Lymphocytes % 14.3% Monocytes % 8.2% Eosinophils % 2.5% Basophils % 0.5% Nucleated Red Blood Cells % 0.0/100WBC Neutrophils # (Manual) 6.310^3/ul Lymphocytes # 1.210^3/ul Monocytes # 0.710^3/ul Eosinophils # 0.210^3/ul Basophils # 0.010^3/ul Nucleated Red Blood Cells # 0.010^3/ul Sodium Level 140mmol/L Potassium Level 4.2mmol/L Chloride Level 88mmol/L Carbon Dioxide Level 32mmol/L Anion Gap 24 Blood Urea Nitrogen 55mg/dl Creatinine 9.24mg/dl Glucose Level 119mg/dl Calcium Level 8.7mg/dl Total Bilirubin 0.1mg/dl Direct Bilirubin 0.00mg/dl Indirect Bilirubin 0.1mg/dl Aspartate Amino Transf (AST/SGOT) 22IU/L Alanine Aminotransferase (ALT/SGPT) 18IU/L Alkaline Phosphatase 132IU/L Total Protein 9.4g/dl Albumin 4.3g/dl Globulin 5.10g/dl Albumin/Globulin Ratio 0.84 Current Medications Medications (Trade) Dose Ordered Sig/Raul Route PRN Reason Start Time Stop Time Status Last Admin Dose Admin IV Flush 10 ml 10 ml STK-MED ONCE .ROUTE 12/15/16 20:52 12/15/16 20:53 DC 12/15/16 21:13 Sodium Chloride (NS) 100 ml @ ud STK-MED ONCE .ROUTE 12/15/16 20:52 12/15/16 20:53 DC 12/15/16 21:13 Iodixanol (Visipaque Locm) 100 ml STK-MED ONCE .ROUTE 12/15/16 20:52 12/15/16 20:53 DC 12/15/16 21:13 Albuterol (Proventil 0.083% (Neb)) 5 mg ONCE STAT INH 12/15/16 21:11 12/15/16 21:12 DC 12/15/16 21:26 Ipratropium Marshall (Atrovent 0.02% (Neb)) 0.5 mg ONCE STAT INH 12/15/16 21:11 12/15/16 21:12 DC 12/15/16 21:26 Procedures/MDM The patient's presenting with concerns at his fistula site. An ultrasound was performed that did demonstrate a patent fistula. There is no DVT in that arm, which was a concern as he has significant left upper extremity edema. Patient's blood work was obtained and reviewed. I do not see any evidence of leukocytosis or left shift. There is a mild anemia that does not need to be emergently treated. The patient's BMP does demonstrate a elevated creatinine between 9 and 10, but this is around his baseline. He does not have any concerning electrolyte abnormalities at this time require emergent dialysis. Patient is also describing shortness of breath. He has poor vasculature, and he has had multiple significantly positive D-dimers in the past. The patient's EKG demonstrates a normal sinus rhythm at 84 bpm. There is a increased WA interval 202 indicating a first-degree block. The patient's QRS duration is widened demonstrating a possible left bundle branch block. A right bundle branch block is also present. There is indeterminate axis. I do not see ST elevation or depressions concerning for an acute coronary syndrome at this time. The patient's x-ray showed mild atelectasis but was otherwise unremarkable. There are no signs of pulmonary edema or pleural effusion. There was mild cardiomegaly on my read. However, there are no signs of fluid overload clinically or based on chest x-ray. With this information, am concerned about his hypoxia in the setting of poor vasculature. CTA of the chest was performed. It did not show evidence of PE per the radiology report, but he did show signs of pulmonary edema, which is consistent with his fluid overloaded state. The patient will require admission to the hospital for hypoxia as well as evaluation of the fistula. If the fistula was determined not to function, he may require central access for dialysis in the hospital. I will defer this to the nephrology team. Departure Diagnosis: Primary Impression: Dialysis AV fistula malfunction Qualified Code: T82.590D - Malfunction of arteriovenous dialysis fistula, subsequent encounter Additional Impressions: Shortness of breath Hypoxia Condition: IRENE Turcios MD Dec 15, 2016 22:02 IRENE TANG MD Dec 15, 2016 22:02
--- NOTE | 2016-12-15 22:25 | RADRPT ---
AMENDMENT: 12/22/2016 12:36:04 AM Priscilla Villasenor M.D Technique: CT pulmonary angiogram of the chest was performed. Sagittal and coronal re-formations were construc shala. 3-D post processing was performed and maximum intensity projection images were reconstructed o n PACS. One or more of the following dose reduction techniques were used: Automated exposure control. Adjustment of the mA and/or kV according to patient size. Use of iterative reconstruction technique. PROCEDURE: CT ANGIOGRAM CHEST, PULMONARY EMBOLISM PROTOCOL: CLINICAL INDICATION: 36 years of age, male, hypoxia and shortness of breath. COMPARISON: None available. TECHNIQUE: Image acquisition by series (and radiation doses in CTDI vol): 113 and 20 mGy. Estimated cumulative dose or total kxwk-whjogy-yzrxawj (DLP) is: 813.2 mGy-cm. Intravenous Contrast Medium Administered: 100 mL of contrast. Cardiac Gating: None. FINDINGS: CARDIOVASCULAR: Diagnostic quality: Contrast opacification of the pulmonary arterial circulation is adequate for ass essment of pulmonary embolism. Study is not significantly limited by respiratory motion artifact. Pulmonary arteries: No filling defects to suggest pulmonary embolism to the level of the subsegmenta l branches of the pulmonary arteries. Enlarged measuring 3.5 cm. Heart: No interventricular septal deviation. Mild cardiomegaly. Three-vessel coronary artery calcif ication. No significant valvular calcification. Pericardium: No pericardial effusion. Thoracic aorta: No significant abnormality. Two-vessel aortic arch. Veins: Contrast was injected through the right arm. There is occlusion of the right subclavian vein at the thoracic inlet where crosses the right first rib with the patient's right arm owith multiple enhancing collaterals in the anterior chest wall. There is a left subclavian veins that is occlude d where crosses over the left first rib with the patient's arm over head. There are multiple venous collaterals in the left anterior chest wall. REMAINING CHEST: Medical devices: None. Thyroid: Normal. Lymph nodes: No supraclavicular, axillary, mediastinal, or hilar lymphadenopathy. Other mediastinal structures: No significant abnormality. Lung parenchyma: Diffuse ground glass opacity with interlobular septal thickening is in keeping with interstitial pulmonary edema. There is linear atelectasis greatest in the mid and lower lung zones . Airways: No significant abnormality. Pleura: No significant abnormality. Chest wall: No significant abnormality. Upper abdomen: No significant abnormality. Musculoskeletal: No suspicious bone lesions. IMPRESSION: Negative for evidence of acute PE to subsegmental branches of the pulmonary arteries. Three-vessel coronary artery calcification. Enlarged main pulmonary artery in keeping with pulmonar y artery hypertension. Interstitial pulmonary edema. Bilateral lung atelectasis. Bilateral subclavian veins are occluded between the clavicles and 1st ribs with the patients arms ov er head and there are multiple collaterals in the anterior chest wall. There is a left subclavian v ein stent that occludes with the patient's arm over head. The appearance is in keeping with a functi onal of thoracic outlet syndrome with the arms in this position. RPTAT: HCTS Physician Jay Date Time Electronically viewed and signed by Obed Villasenor Physician on 12/22/2016 00:37 CS/
[2016-12-16] VITALS (15 sets, daily range): BP systolic 129–215; BP diastolic 55–139; PULSE 65–88; RESP 18–20
[2016-12-16] MEDS ORDERED: LORAZEPAM 1 MG TAB PO PRN
[2016-12-16] MEDS ORDERED: HYDROCODONE/APAP (5/325) TAB PO PRN (00:30)
[2016-12-16] MEDS ORDERED: ZOLPIDEM 5 MG TAB PO PRN (00:30)
[2016-12-16] MEDS ORDERED: DOCUSATE SODIUM 100 MG CAP PO PRN (00:30)
[2016-12-16] MEDS ORDERED: ACETAMINOPHEN 325 MG TAB PO PRN ×2 (00:30)
[2016-12-16] MEDS ORDERED: NACL 0.9% 3 ML SYG IV SCH (00:30)
[2016-12-16] MEDS ORDERED: ONDANSETRON 4 MG INJ IV PRN ×2 (00:30)
[2016-12-16] MEDS ORDERED: LORAZEPAM 1 MG TAB ONE (02:28)
[2016-12-16] MEDS ORDERED: PANTOPRAZOLE 40 MG INJ IV SCH (06:00)
[2016-12-16 07:20] LABS: BASOPHILS % 0.4 % (0.0-2.0); EOSINOPHILS # 0.2 10^3/ul (0.0-0.5); EOSINOPHILS % 2.1 % (0.0-7.0); HEMATOCRIT 28.7 % (42.0-52.0); HEMOGLOBIN 9.5 g/dl (14.0-18.0); LYMPHOCYTES # 1.2 10^3/ul (0.8-2.9); LYMPHOCYTES % 15.4 % (15.0-51.0); MEAN CORPUSCULAR HEMOGLOBIN 33.1 pg (29.0-33.0); MEAN CORPUSCULAR HGB CONC 33.1 g/dl (32.0-37.0); MONOCYTE # 0.7 10^3/ul (0.3-0.9); MONOCYTES % 8.7 % (0.0-11.0); PLATELET COUNT 115 10^3/UL (140-415); RED BLOOD COUNT 2.87 10^6/ul (4.70-6.10); RED CELL DISTRIBUTION WIDTH 16.8 % (11.5-14.5); WHITE BLOOD COUNT 7.8 10^3/ul (4.8-10.8)
[2016-12-16] MEDS ORDERED: SEVELAMER CARBONATE 0.8 GM PKT PO SCH ×2 (07:35→09:30)
[2016-12-16 07:52] LABS: CALCIUM 7.9 mg/dl (8.4-10.2); CREATININE 10.2 mg/dl (0.61-1.24); PHOSPHORUS 8.2 mg/dl (2.5-4.9)
--- NOTE | 2016-12-16 08:39 | HP ---
DATE OF ADMISSION: 12/15/2016 REASON FOR ADMISSION: Congestive heart failure. HISTORY OF PRESENT ILLNESS: This is a 36-year-old gentleman, well known to me with endstage renal disease due to diabetes and hypertension, currently maintained on outpatient hemodialysis every Friday, Friday and Friday at the [facility] unit. He has had multiple issues with his vascular accesses and is currently being dialyzed by a left upper extremity AV graft. The left upper extremity has had persistent edema since that surgery and ultimately it was revisited last week with his vascular surgeon Dr. Lopez at [facility] and the patient had a stent placed in the venous outflow tract in the left upper extremity. He presented to the [facility] ER last night with some shortness of breath. Evaluation at that time included a Duplex ultrasound, which again was negative for any DVT in the left upper extremity. Chest x-ray was somewhat unremarkable. Specifically, no fluoride failure. Chest CTA was done, which showed no evidence of any acute PEs but did show evidence of mild pulmonary edema. He was thus admitted, placed on oxygen where his O2 sat is 95% on 2 L and he is to undergo dialysis today. There has been no recent fevers, chills, sweats, nausea, vomiting. No chest pain, dizziness, lightheadedness, syncope or presyncope. No abdominal pain or chills. PAST MEDICAL HISTORY: Please see full dictated problem list. ALLERGIES: SULFA. HABITS: Tobacco: None. Alcohol: None. MEDICATIONS: Prior to admission were: 1. Nephro-Rafael 1 daily. 2. Nifedipine ER 60 mg once a day. 3. Carvedilol 25 mg b.i.d. 4. Renvela 4-5 tabs t.i.d. with meals. 5. Lorazepam p.r.n. anxiety. REVIEW OF SYSTEMS: As per HPI. PHYSICAL EXAMINATION: GENERAL APPEARANCE: An awake and alert gentleman, in no acute distress. VITAL SIGNS: He is afebrile. Blood pressure 148/72, heart rate 70 and regular, respirations are 12 and unlabored, O2 sat is 95 percent on 2 L. SKIN: No new rashes. HEENT: Head is normocephalic. Eyes: No conjunctivitis. NECK: No JV distention. LUNGS: Show slight diminished breath sounds at the bases. HEART: S1, S2. Regular rate and rhythm. No new murmurs or rubs. ABDOMEN: Soft and nontender. EXTREMITIES: He is status post a left BKA, which is chronic. He has a functioning AV fistula in the left upper extremity with noted edema as is his baseline. NEUROLOGIC: No focality. DATA: White count 7.8, hemoglobin 9.5, hematocrit 28.7, platelet count 115,000. Sodium 140, potassium 4.2, chloride 88, bicarb 32, BUN 55, creatinine 9.24, glucose 119, calcium 8.7. Total bili is 0.1, AST 22, ALT 18, alk phos 132, total protein 9.4, albumin 4.3. Chest x-ray: Heart size is normal and no pleural effusion noted there. Chest CTA: No evidence for any acute pulmonary emboli. There are calcifications about his coronary arteries. There is mild interstitial pulmonary edema with bilateral lung atelectasis. Of note, subclavian veins are occluded. There is a stent in the left subclavian vein that is noted. Left upper extremity venous study negative for any DVT. PROBLEM LIST: 1. Mild congestive heart failure due to fluid overload. 2. Endstage renal disease due to diabetes, maintained on outpatient hemodialysis every Friday, Friday and Friday at [facility]. 3. Status post negative CTA of the chest aside from noted pulmonary edema and known pulmonary hypertension. 4. Chronic edema in left upper extremities, status post stenting in the left subclavian vein last week over at [facility]. 5. Diabetes mellitus as noted, currently diet controlled. 6. Hypertension. 7. Peripheral vascular disease, status post left below knee amputation. 8. Anxiety. RECOMMENDATIONS: 1. Resume medications. 2. Dialysis today. 3. Further recommendations pending response to above. Dictated By: Michael Franco MD /[email or web address]/richard /Document#: [id number]
[2016-12-16] MEDS: NIFEdipine (XL) 60 MG TAB PO SCH (08:56)
[2016-12-16] MEDS ORDERED: SEVELAMER CARBONATE 2.4 GM PKT PO SCH (09:30)
[2016-12-16] MEDS ORDERED: LIDOCAINE 1% (MDV) 20 ML INJ SC ONE (10:00)
[2016-12-16] MEDS: SEVELAMER 800 MG TAB PO SCH ×3 (10:01→17:25)
[2016-12-17] VITALS (11 sets, daily range): BP systolic 102–183; BP diastolic 50–91; PULSE 61–72; RESP 18–20
[2016-12-17] MEDS: PANTOPRAZOLE (EC) 40 MG TAB PO SCH (06:00)
[2016-12-17] MEDS: NIFEdipine (XL) 60 MG TAB PO SCH (09:00)
[2016-12-17] MEDS: SEVELAMER 800 MG TAB PO SCH ×3 (10:35→18:46)
[2016-12-17] MEDS ORDERED: EPOETIN 10000 UNITS/1 ML INJ (ESRD) SC SCH (17:00)
--- NOTE | 2016-12-17 19:14 | RADRPT ---
PROCEDURE: XR Chest. CLINICAL INDICATION: Shortness of breath. TECHNIQUE: Single frontal view. COMPARISON: 12/15/2016. FINDINGS: There is mild left basilar atelectasis, unchanged. The lungs are otherwise clear. The heart is enlarged. There is no pleural effusion. There is no pneumothorax. IMPRESSION: 1. Mild left basilar atelectasis, unchanged. 2. Cardiomegaly. 3. Otherwise normal chest x-ray. RPTAT: QQ .Kristopher Ochoa MD, Date Time Electronically viewed and signed by .Kristopher Ochoa MD, MD on 12/17/2016 19:13 .R/
[2016-12-18] VITALS (12 sets, daily range): BP systolic 131–171; BP diastolic 58–90; PULSE 60–78; RESP 18
[2016-12-18] MEDS: PANTOPRAZOLE (EC) 40 MG TAB PO SCH (06:00)
[2016-12-18] MEDS: SEVELAMER 800 MG TAB PO SCH ×3 (08:23→17:23)
--- NOTE | 2016-12-18 08:35 | PN ---
Date/Time of Note Date/Time of Note DATE: 12/18/16 TIME: 08:34 Assessment/Plan VTE Prophylaxis VTE Prophylaxis Intervention: other Assessment/Plan Assessment/Plan 1. CHF resolving 2. ESRD, will hd toda 3. Anemia is stable 4. HBP, controlled Subjective 24 Hr Interval Summary Respiratory: shortness of breath (mild) Cardiovascular: No chest pain Gastrointestinal: no complaints Genitourinary: no complaints Musculoskeletal: no complaints Neurologic: No headache Exam/Review of Systems Vital Signs Vitals Vital Signs Date Time Temp Pulse Resp B/P Pulse Ox O2 Delivery O2 Flow Rate FiO2 12/18/16 07:33 98.0 65 18 131/58 93 12/17/16 20:00 2.0 12/17/16 10:52 Nasal Cannula Intake and Output 12/17/16 12/17/16 12/18/16 15:00 23:00 07:00 Intake Total 500 ml 680 ml Output Total 4500 ml Balance -4000 ml 680 ml Exam Neck: No jvd Respiratory: clear to auscultation Cardiovascular: regular rate and rhythm Gastrointestinal: soft Extremities: No edema Results Result Diagram: 12/16/16 0545 12/16/16 0545 Medications Medications Current Medications Carvedilol (Coreg) 25 mg BID PO Last administered on 12/17/16 21:44; Admin Dose 25 MG; Start 12/16/16 at 00:00 Nifedipine (Procardia Xl) 60 mg DAILY PO ; Start 12/16/16 at 09:00 Clonidine (Catapres) 0.1 mg TID PO Last administered on 12/17/16 21:45; Admin Dose 0.1 MG; Start 12/16/16 at 09:00 Lorazepam (Ativan) 1 mg TID PRN PO ANXIETY Last administered on 12/16/16 02:45 ; Admin Dose 1 MG; Start 12/16/16 at 00:00 Ondansetron HCl (Zofran Inj) 4 mg Q6H PRN IV NAUSEA AND/OR VOMITING; Start at 00:30 Acetaminophen (Tylenol Tab) 650 mg Q6H PRN PO PAIN LEVEL 1-3 OR FEVER; Start at 00:30 Acetaminophen/ Hydrocodone Bitart ([place] (5/325)) 1 tab Q6H PRN PO MODERATE PAIN LEVEL 4-6; Start 12/16/16 at 00:30 Docusate Sodium (Colace) 100 mg Q12H PRN PO CONSTIPATION; Start 12/16/16 at 00: 30 Zolpidem Tartrate (Ambien) 5 mg QHS PRN PO SLEEP; Start 12/16/16 at 00:30 Pantoprazole (Protonix Tab) 40 mg DAILY@06 PO ; Start 12/17/16 at 06:00 Clonidine (Catapres) 0.1 mg Q4H PRN PO ELEVATED BLOOD PRESSURE Last administered on 12/17/16t 03:28; Admin Dose 0.1 MG; Start 12/17/16 at 03:00 Epoetin Shay (Epogen (Esrd)) 10,000 units TuThSa@17 SC ; Start 12/17/16 at 17:00 TASHA AYOUB MD Dec 18, 2016 08:35
[2016-12-18] MEDS: NIFEdipine (XL) 60 MG TAB PO SCH (08:36)
[2016-12-19] VITALS (9 sets, daily range): BP systolic 118–151; BP diastolic 50–65; PULSE 50–74; RESP 18–20
[2016-12-19] MEDS: PANTOPRAZOLE (EC) 40 MG TAB PO SCH (06:00)
[2016-12-19 06:26] LABS: BASOPHILS % 0.5 % (0.0-2.0); EOSINOPHILS # 0.2 10^3/ul (0.0-0.5); EOSINOPHILS % 2.7 % (0.0-7.0); HEMATOCRIT 29.7 % (42.0-52.0); LYMPHOCYTES # 1.1 10^3/ul (0.8-2.9); LYMPHOCYTES % 14.9 % (15.0-51.0); MEAN CORPUSCULAR HEMOGLOBIN 34.1 pg (29.0-33.0); MEAN CORPUSCULAR HGB CONC 33.7 g/dl (32.0-37.0); MEAN CORPUSCULAR VOLUME 101.4 fl (82.0-101.0); MEAN PLATELET VOLUME 11.6 fl (7.4-10.4); MONOCYTE # 0.6 10^3/ul (0.3-0.9); MONOCYTES % 8.1 % (0.0-11.0); NEUTROPHILS % 73.4 % (39.0-77.0); PLATELET COUNT 122 10^3/UL (140-415); RED BLOOD COUNT 2.93 10^6/ul (4.70-6.10); WHITE BLOOD COUNT 7.7 10^3/ul (4.8-10.8)
[2016-12-19 06:48] LABS: CALCIUM 8.1 mg/dl (8.4-10.2); CREATININE 8.4 mg/dl (0.61-1.24); PHOSPHORUS 6.7 mg/dl (2.5-4.9); POTASSIUM 4.6 mmol/L (3.5-5.1)
[2016-12-19] MEDS: NIFEdipine (XL) 60 MG TAB PO SCH (09:00)
[2016-12-19] MEDS: SEVELAMER 800 MG TAB PO SCH ×2 (09:15→12:10)
--- NOTE | 2016-12-19 09:28 | DS ---
DATE OF ADMISSION: 12/15/2016 DATE OF DISCHARGE: 12/19/2016 REASON FOR ADMISSION: Fluid overload. HISTORY OF PRESENT ILLNESS: Please see my full dictated history and physical for details. Briefly, a 36-year-old male with endstage renal disease who presented to [facility] Emergency Room with worsening shortness of breath and was found to be in congestive heart failure and thus admitted. Of note, chest CTA was done, which was negative for any acute pulmonary embolism, but did show evidence of pulmonary edema. HOSPITAL COURSE: The patient was admitted, given exogenous O2 and urgently dialyzed. He was noted to be markedly fluid overloaded and therefore had daily dialysis with relief of his symptomatology. Labs were notable for stable hematocrit, absence of any leukocytosis, and chemistry panel as well was unremarkable. Blood cultures were negative. Chest x-ray improved with the vigorous ultrafiltration and he was subsequently discharged in stable condition, not requiring any O2. No longer shortness of breath and denied any chest discomfort. He is to continue his outpatient dialysis as per normal. Specifically every Friday, Friday and Friday at [facility]. DISCHARGE DIAGNOSES: 1. Fluid overload with mild congestive heart failure, resolved with daily dialysis and vigorous ultrafiltration. 2. Endstage renal disease, due to diabetes mellitus. Maintained on outpatient hemodialysis every Friday, Friday and Friday at . 3. Status post negative CTA of the chest. 4. Chronic edema of the left upper extremity, status post recent stenting in the left subclavian vein. Duplex this admission negative for any deep venous thrombosis. 5. Diabetes mellitus, currently diet controlled. 6. Hypertension. 7. Peripheral vascular disease, status post left below knee amputation. 8. Anxiety, currently well controlled. DISPOSITION: Home. FOLLOWUP: Will be with Dr. Catherine. DISCHARGE CONDITION: Stable. DISCHARGE MEDICATIONS: As per the medical reconciliation sheet. Dictated By: Michael Franco MD /[email or web address]/patrick /Document#: [id number]
== END 2016-12-19 15:15 | disposition home or self-care (01) | DRG 315 ==
LOC: E/R 12:41 → PP2 23:47 → MS2 12-16 06:43
PROVIDERS: ADMIT Internal Medicine; ATTEND Internal Medicine
PROC: 5A1D60Z (ICD-10-PCS; principal; 2016-12-16)
DX: T82.590A Other mechanical complication of surgically created arteriovenous fistula, initial encounter (principal); I13.0 Hypertensive heart and chronic kidney disease with heart failure and stage 1 through stage 4 chronic kidney disease, or unspecified chronic kidney disease; I50.9 Heart failure, unspecified; E11.51 Type 2 diabetes mellitus with diabetic peripheral angiopathy without gangrene; E11.22 Type 2 diabetes mellitus with diabetic chronic kidney disease; N18.9 Chronic kidney disease, unspecified; F41.9 Anxiety disorder, unspecified; R60.0 Localized edema; R09.02 Hypoxemia; D64.9 Anemia, unspecified; Z99.2 Dependence on renal dialysis
CPT/HCPCS: 36415; 71010; 71275; 80048; 80053; 84100; 85025; 87040; 90935; 93005; 93971; 94664; C9113; Q4081; Q9967

== ENCOUNTER 2017-02-02 12:11 | Emergency (ER) | payer MEDICARE, OTHER ==
[~2017-02-02] VITALS: Ht 180.3 cm; Wt 106.0 kg
[2017-02-02 12:14] VITALS: Ht 180.3 cm; Wt 106.0 kg
--- NOTE | 2017-02-02 12:47 | ERD ---
ER Documentation Chief Complaint Date/Time DATE: 02/02/17 TIME: 12:39 Chief Complaint FELT TINGLING SENSATION ON LT ARM AT HOME , RESOLVED NOW HPI 56-year-old male who presents emergency department for left upper extremity numbness and tingling started about an hour and a half ago. Symptom is resolved here in the emergency department at this time. Stated that he is concerned because he has history of multiple clots to his left arm with stent placements. His last stent placement was 2 months ago. Denies headache, dizziness, blurred vision, changes in vision, neck pain, throat pain, difficulty swallowing, shoulder pain, chest pain, back pain, abdominal pain, trauma, injury, falls, fever, chills. No known drug allergies. Past medical history of hypertension, diabetes, end- stage renal disease with hemodialysis (last dialysis was yesterday). Surgical history: Stated that he has multiple surgical history including left below-knee amputation, stent placement is left upper extremity, placement of left upper extremity hemodialysis access. Medication: Reviewed. Social: Not working at this time. Denies smoking, use of alcohol, use of illegal drugs. ROS All systems reviewed and are negative except as per history of present illness. Medications Home Meds Active Scripts Carvedilol* (Carvedilol*) 25 Mg Tablet, 25 MG PO BID for 30 Days, #60 TAB Prov:ULISES ALMEIDA MD 08/31/16 Lorazepam* (Ativan*) 2 Mg Tablet, 2 MG PO Q8 Y for ANXIETY for 60 Days, #60 TAB Prov:ULISES ALMEIDA MD 08/31/16 Nifedipine* (Nifedipine ER*) 60 Mg Tablet.sa, 60 MG PO DAILY for 30 Days, #30 TAB.SA Prov:ULISES ALMEIDA MD 08/31/16 Reported Medications Sevelamer Carbonate* (Renvela*) 800 Mg Tablet, 3200 MG PO WITH MEALS, TAB 09/25/14 Allergies Allergies: Coded Allergies: sulfamethoxazole (Verified Allergy, Unknown, SWELLING, 08/26/16) trimethoprim (Verified Allergy, Unknown, SWELLING, 08/26/16) PMhx/Soc History of Surgery: Yes (retinal detachementx2 multiple fistulas and grats) Anesthesia Reaction: No Hx Neurological Disorder: No Hx Respiratory Disorders: Yes (fluid overload bilateral lungs) Hx Cardiac Disorders: Yes (htn) Hx Psychiatric Problems: No Hx Miscellaneous Medical Probl: No Hx Alcohol Use: No Hx Substance Use: No Hx Tobacco Use: No Physical Exam Vitals Vital Signs Date Time Temp Pulse Resp B/P Pulse Ox O2 Delivery O2 Flow Rate FiO2 02/02/17 14:38 98.2 76 19 139/78 100 Room Air 02/02/17 12:14 98.1 78 18 145/72 98 Physical Exam Const: [] Head: Atraumatic Eyes: Normal Conjunctiva ENT: Normal External Ears, Nose and Mouth. Neck: Full range of motion..~ No meningismus. Resp: Clear to auscultation bilaterally Cardio: Regular rate and rhythm, no murmurs Abd: Soft, non tender, non distended. Normal bowel sounds Skin: No petechiae or rashes Back: No midline or flank tenderness Ext: No cyanosis, or edema. Right upper extremity has multiple scars but has noticed deformity, swelling, discoloration, numbness or tingling sensation. Left upper extremity has left dialysis access. Left shoulder is good and full range of motion. Left elbow is good and full range of motion. Left hand/ fingers has good and full range of motion. No neurovascular deficits. Bilateral hips are stable and unremarkable. Left lower extremity has below- knee amputation. Neur: Awake and alert Psych: Normal Mood and Affect Procedures/MDM 56-year-old male who presents emergency department for left upper extremity numbness and tingling started about an hour and a half ago. Symptom is resolved here in the emergency department at this time. Stated that he is concerned because he has history of multiple clots to his left arm with stent placements. His last stent placement was 2 months ago. Denies headache, dizziness, blurred vision, changes in vision, neck pain, throat pain, difficulty swallowing, shoulder pain, chest pain, back pain, abdominal pain, trauma, injury, falls, fever, chills. No known drug allergies. Past medical history of hypertension, diabetes, end- stage renal disease with hemodialysis (last dialysis was yesterday). Surgical history: Stated that he has multiple surgical history including left below-knee amputation, stent placement is left upper extremity, placement of left upper extremity hemodialysis access. Medication: Reviewed. Social: Not working at this time. Denies smoking, use of alcohol, use of illegal drugs. Physical exam: Respirations even and unlabored. Lung sounds are clear to auscultation. Right upper extremity has multiple scars but has noticed deformity, swelling, discoloration, numbness or tingling sensation. Left upper extremity has left dialysis access. Left shoulder is good and full range of motion. Left elbow is good and full range of motion. Left hand/fingers has good and full range of motion. No neurovascular deficits. Bilateral hips are stable and unremarkable. Left lower extremity has below-knee amputation. Disease process was explained to the patient. She verbalized understanding and agreed with the diagnostic test, plan of care. Case was discussed with supervising physician, Dr. Kristopher Eubanks who would be my medical decision making to do an EKG and ultrasound of the left upper extremity. EKG: Possible left atrial enlargement. Right bundle branch block. Read by supervising physician, Dr. Poe who noted that this is unchanged from previous EKG that was done on July 2016. EKG result was discussed with supervising physician fast track, Dr. Kristopher Eubanks agreed in my medical decision making not to do blood works. Venous Doppler/ultrasound of the left upper extremity: No evidence of deep vein thrombosis involving the left upper extremity. Reevaluation: Denies headache, dizziness, blurred vision, neck pain, shoulder pain, chest pain, back pain, abdominal pain, nausea, vomiting, numbness or tingling sensation. No abdominal tenderness. No neurovascular deficits. Stated that he feels much better this time and ready to go home and wants to go home. Differential diagnosis: TIA versus stroke versus paresthesias versus deep vein thrombosis versus superficial vein thrombosis Final diagnosis: Paresthesia Prescription: None. Follow-up with primary care physician the next 24-48 hours. Come back here in the emergency department for any new symptoms or any worsening of symptoms. All questions and concerns are answered. Patient verbalized understanding and agreed with the plan of care. Hemodynamically stable on discharge. Departure Diagnosis: Primary Impression: Tingling of skin Additional Impression: Paresthesia Condition: Stable Additional Instructions: Follow-up with primary care physician the next 24-48 hours. Come back here in the emergency department for any new symptoms or any worsening of symptoms. All questions and concerns are answered. Patient verbalized understanding and agreed with the plan of care. ROSALIO BORJAS Feb 02, 2017 12:47
--- NOTE | 2017-02-02 13:41 | RADRPT ---
PROCEDURE: Left upper extremity venous ultrasound CLINICAL INDICATION: Left arm pain and swelling. Deep venous thrombosis. TECHNIQUE: Carlisle scale, color doppler, spectral doppler ultrasound imaging of the venous system of the left upper extremity. Augmentation maneuvers were utilized. COMPARISON: 12/15/2016 FINDINGS: LEFT: Internal jugular vein: Patent. Subclavian vein: Patent. Axillary vein: Patent. Brachial vein: Patent. Basilic vein: Patent. Cephalic vein: Patent. Radial vein: Patent. Ulnar vein: Patent. IMPRESSION: No evidence of a deep vein thrombosis involving the left upper extremity. RPTAT: AADD .Eliel Ogden MD, MD Date Time Electronically viewed and signed by .Eliel Ogden MD, MD on 02/02/2017 13:40 .B/
[2017-02-02 14:38] VITALS: BP 139/78; PULSE 76; RESP 19; TEMP 98.2
== END 2017-02-02 14:38 | disposition home or self-care (01) ==
LOC: FTE 12:11
DX: R20.2 Paresthesia of skin (principal); I10 Essential (primary) hypertension
CPT/HCPCS: 93971

== ENCOUNTER 2017-02-03 05:25 | Inpatient (IN) | payer MEDICARE, OTHER ==
[2017-02-03] VITALS (12 sets, daily range): BP systolic 134–228; BP diastolic 55–103; PULSE 73–83; RESP 18; TEMP 97.9; Ht 175.3 cm; Wt 110.0 kg
[~2017-02-03] VITALS: Ht 175.3 cm; Wt 110.0 kg
[2017-02-03 05:44] LABS: AADO2 Arterial 613.6 mmHg (7.0-24.0); Allen Test ACCEPTAB; Arterial Base Excess 8.8 mmol/L (-3.0-3); Arterial COHb 0.4 % (0.0-3.0); Arterial Fraction of Oxyhgb 79.3 % (93.0-99.0); Arterial HCO3 34.9 mmol/L (22.0-26.0); Arterial MetHb 0.1 % (0.0-1.5); Arterial Total Hemglobin 13.5 g/dl (12.0-18.0); MODE MASK - NRB
[2017-02-03 05:59] LABS: BASOPHILS % 0.2 % (0.0-2.0); EOSINOPHILS # 0.2 10^3/ul (0.0-0.5); HEMATOCRIT 39.6 % (42.0-52.0); HEMOGLOBIN 13.4 g/dl (14.0-18.0); LYMPHOCYTES # 1.4 10^3/ul (0.8-2.9); LYMPHOCYTES % 15.1 % (15.0-51.0); MEAN CORPUSCULAR HEMOGLOBIN 34.2 pg (29.0-33.0); MEAN CORPUSCULAR HGB CONC 33.8 g/dl (32.0-37.0); MEAN PLATELET VOLUME 10.9 fl (7.4-10.4); MONOCYTE # 0.7 10^3/ul (0.3-0.9); MONOCYTES % 7.4 % (0.0-11.0); NEUTROPHIL # 6.9 10^3/ul (1.6-7.5); PLATELET COUNT 159 10^3/UL (140-415); RED BLOOD COUNT 3.92 10^6/ul (4.70-6.10); RED CELL DISTRIBUTION WIDTH 14.4 % (11.5-14.5); WHITE BLOOD COUNT 9.2 10^3/ul (4.8-10.8)
[2017-02-03] MEDS ORDERED: LABETALOL HCL 20MG INJ IV ONE (06:00)
--- NOTE | 2017-02-03 06:04 | RADRPT ---
PROCEDURE: Chest. CLINICAL INDICATION: Chest pain. TECHNIQUE: Single frontal view of the chest was obtained. COMPARISON: 12/17/2016. FINDINGS: A left subclavian stent is present. The cardiac silhouette is magnified. The aortic arch is unremar kable. There are increased interstitial markings bilaterally. There is no pleural effusion. There is no pneumothorax. IMPRESSION: Bilateral increased interstitial markings could represent interstitial edema or infiltrates, increas ed compared with the prior study. .Noah Hill MD, Date Time Electronically viewed and signed by .Noah Hill MD, MD on 02/03/2017 06:03 .T/
[2017-02-03 06:26] LABS: INR 1.04; PROTIME 13.6 Sec (12.2-14.2); PT RATIO 1.1
[2017-02-03 06:27] LABS: PARTIAL THROMBOPLASTIN TIME 27.2 Sec (25.0-35.0)
[2017-02-03 06:31] LABS: ALANINE AMINOTRANSFERASE 24 IU/L (13-69); ALBUMIN 4.4 g/dl (3.3-4.9); ALBUMIN/GLOBULIN RATIO 0.97; ALKALINE PHOSPHATASE 138 IU/L (42-121); ANION GAP 21 (8-16); ASPARTATE AMINO TRANSFERASE 22 IU/L (15-46); BLOOD UREA NITROGEN 47 mg/dl (7-20); CALCIUM 7.7 mg/dl (8.4-10.2); CARBON DIOXIDE 34 mmol/L (21-31); CHLORIDE 91 mmol/L (97-110); CREATININE 9.89 mg/dl (0.61-1.24); GLUCOSE 189 mg/dl (70-220); POTASSIUM 4.2 mmol/L (3.5-5.1); SODIUM 142 mmol/L (135-144); TOTAL PROTEIN 8.9 g/dl (6.1-8.1)
[2017-02-03 06:34] LABS: ACETAMINOPHEN < 10.0 ug/ml (10.0-30.0); ETHANOL < 10.0 mg/dl; SALICYLATE < 1.0 mg/dl (5.0-30.0)
[2017-02-03] MEDS ORDERED: LEVETIRACETAM 1000 MG (PMX) 100 ML IVPB STA (06:36)
[2017-02-03 06:42] LABS: TROPONIN-I 0.054 ng/ml (0.00-0.12)
--- NOTE | 2017-02-03 07:17 | RADRPT ---
PROCEDURE: CT brain CLINICAL INDICATION: Seizure. Loss of consciousness. TECHNIQUE: CT of the head was performed on a CT scanner utilizing high-resolution axial images. S agittal, coronal, and multiplanar reformatted images were made. The CTDIvol is 44.52, 44.52 mGy and the DLP is 1620.51 mGy-cm. One or more of the following dose reduction techniques were utilized: Automated exposure control, a djustment of the mA and/or kV according to patient size, use of iterative reconstruction technique. COMPARISON: None FINDINGS: Limited by motion artifact despite scanning twice. No intracranial hemorrhage, mass effect or midline shift. No extra-axial fluid collection. The ventr icles and sulci are normal in size and configuration. Normal posada white matter differentiation. Visualized portions of the orbits are normal. Seizure Mucosal thickening bilateral maxillary sinuses and bilateral ethmoid air cells. Other visualized por tions of the paranasal sinuses and mastoid air cells are clear. IMPRESSION: No acute intracranial abnormality. Bilateral maxillary sinus and ethmoid air cell mucosal thickening. RPTAT:AAJJ Physician Boubacar Date Time Electronically viewed and signed by Physician Boubacar on 02/03/2017 07:16 /
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
[2017-02-03] MEDS ORDERED: ONDANSETRON 4 MG INJ IV PRN ×2 (09:30→11:00)
[2017-02-03] MEDS ORDERED: ACETAMINOPHEN 325 MG TAB PO PRN ×2 (09:30→11:00)
[2017-02-03] MEDS ORDERED: DOCUSATE SODIUM 100 MG CAP PO PRN (11:00)
[2017-02-03] MEDS ORDERED: NACL 0.9% 3 ML SYG IV SCH (11:00)
[2017-02-03] MEDS ORDERED: BISACODYL (EC) 5 MG TAB PO PRN (11:00)
[2017-02-03] MEDS ORDERED: HYDROCODONE/APAP (5/325) TAB PO PRN (11:00)
--- NOTE | 2017-02-03 11:45 | HP ---
DATE OF ADMISSION: 02/03/2017 REASON FOR ADMISSION: Altered level of consciousness. HISTORY OF PRESENT ILLNESS: This is a 36-year-old gentleman with known end-stage renal disease, erick knox known to me, who dialyzes 3 to 4 times a week over at the [facility] here in [facility]. His last dialysis was Friday, 2 days prior to admission. He states yesterday, Friday, was uneventful. He went to sleep uneventfully and apparently earlier t his morning, his brother heard him moaning in bed. Additionally, he was noted to be with diminished responsiveness to any oral commands, so therefore t he brother called 911 and upon their arrival, they found the patient's O2 sat was 79%. They placed him on 100% nonrebreather with recovery of his O2 sat, and he was transferred to the ER for evaluation. Of note, there was no seizure activity noted. There was no stool or urine incontinence, and the lyndon waggoner does not have any known history of seizure disorder. In the emergency room, after approximately 30 minutes, his mental status recovered to normal and his neurologic exam was entirely nonfocal. He was somewhat groggy, but arousable and answered question s appropriately to the ER physician. Evaluation in the ER showed a normal white count of 9.2, potassium was 4.2. Chest x-ray did show fi ndings consistent with congestive heart failure and a CT scan of the brain showed no intracranial he morrhage, mass effect or any midline shift. Upon my arrival to the ER, and discussing issues with the patient, he was entirely awake, alert, he states he did not totally recall what happened. He did realize that he was aware of his surrounding s, but had trouble speaking and his feeling was it was because of his lack of oxygen that led to his alteration. Of note, he did take Ativan prior to sleep, but he has done that before. There were no other new me dications. No recent fevers, chills, sweats. He denies any chest pain, nausea or diaphoresis. PHYSICAL EXAMINATION: GENERAL: Currently awake, alert gentleman complaining of some fatigue, but no acute distress. VITAL SIGNS: He is afebrile. Blood pressure is 150/65, heart rate is 80 in a sinus rhythm, respira tions are 12 and unlabored, O2 sat is 100% on a 15-liter face mask. SKIN: Warm, well perfused. HEAD: There is ecchymosis about his left upper eyelid, otherwise atraumatic. NECK: No adenopathy. LUNGS: Show slightly diminished breath sounds at the bases. No wheezes. HEART: S1, S2, regular rate and rhythm. ABDOMEN: Soft and nontender. EXTREMITIES: No cyanosis, clubbing. He is status post a left BKA. He has a well-functioning fistu la in his left upper extremity. He has old scars from a prior AV fistula in the right upper extremi ty. LABORATORY DATA: White count 9.2, hemoglobin 13.4, hematocrit 39.6, platelet count 159,000. INR is 1.1. Initial ABG 7.43, pCO2 of 54, pO2 of 46. Sodium 142, potassium 4.2, chloride 91, bicarbonate 34, BUN 47, creatinine 9.89, glucose 189, calcium 7.7, total bilirubin is 0, AST 22, ALT 24, alkali ne phosphatase 138, total protein 8.95, albumin is 4.4. Chest x-ray again shows bilateral increased interstitial markings consistent with congestive heart failure. CT scan of the brain, no acute vamsi nges. PROBLEM LIST: 1. Altered mental status, resolved with exogenous O2, currently back to baseline. 2. No documented evidence of seizure activity, nor is there any prior history of seizures: The pat ient was loaded with 1000 mg of Keppra in the emergency room. 3. Congestive heart failure, with patient frequent history of fluid noncompliance. 4. End-stage renal disease due to diabetes and hypertension, currently dialyzes 3 to 4 times a week . 5. Diabetes mellitus, currently diet controlled. 6. Hypertension, exacerbated with fluid overload. 7. Peripheral vascular disease, status post left BKA years ago. 8. Recurrent access problems, currently well-functioning AV fistula in the left upper extremity. 9. SULFA ALLERGY. RECOMMENDATIONS: 1. The patient currently is awake, alert, mentating normally and oxygenating well on his face mask. 2. Urgent dialysis to be done. 3. We will rule out an NC, albeit this is much less likely. 4. We will obtain EEG, albeit I doubt this is seizure disorder. 5. Continue routine medications. 6. Follow up mental status. 7. Further recommendations pending response to above. Dictated By: BRENDEN VALE MD, MM/GARCIA BROOKS: 02/03/2017 11:03:38 Conf#: [id number] DID#: [id number]
[2017-02-03] MEDS: SEVELAMER CARBONATE 0.8 GM PKT PO SCH ×2 (12:00→18:00)
[2017-02-03 12:09] LABS: TROPONIN-I 0.06 ng/ml (0.00-0.12)
[2017-02-03 12:15] LABS: CK-MB 4.63 ng/ml (0.0-2.4)
[2017-02-03 20:25] LABS: TROPONIN-I 0.057 ng/ml (0.00-0.12)
[2017-02-03] MEDS: HEPARIN 5,000 UNIT/0.5 ML VIAL SC SCH (20:42)
[2017-02-03] MEDS ORDERED: NIFEdipine (XL) 60 MG TAB PO ONE (21:30)
[2017-02-04] VITALS (15 sets, daily range): BP systolic 103–192; BP diastolic 40–95; PULSE 65–87; RESP 16–20
[2017-02-04] MEDS: PANTOPRAZOLE (EC) 40 MG TAB PO SCH (06:19)
--- NOTE | 2017-02-04 07:12 | SP ---
DATE OF PROCEDURE: A 34-year-old gentleman with altered level of consciousness. DESCRIPTION OF PROCEDURE: EEG was recorded on 02/03/2017. Routine EEG was recorded digitally. [id number] and [id number] montages were recorded and revi ewed. All impedances were measured and recorded. Cap electrodes were placed in accordance to Inter national 10-20 system of electrode placement. Patient was loaded with Keppra in the emergency department. Other medical history includes CHF and endstage renal disease as well as diabetes and peripheral vascular disease. FINDINGS: Symmetrically distributed background activity of low to medium amplitude of approximately 8 cycles per second was seen, most of the recording, at times slows down 4 to 6 cycles per second. No definite epileptiform transients were seen. No signs of ongoing electrographic seizures or late ralized slowing. Photic stimulation produces no definite driving. IMPRESSION: Mildly abnormal study secondary to intermittent background slowing which could reflect presence of encephalopathy. Please correlate clinically. Dictated By: MARCELO NOLASCO/GARCIA Conf#: [id number] DID#: [id number]
[2017-02-04 07:38] LABS: BASOPHIL # 0.1 10^3/ul (0.0-0.1); BASOPHILS % 0.5 % (0.0-2.0); EOSINOPHILS # 0.3 10^3/ul (0.0-0.5); EOSINOPHILS % 2.6 % (0.0-7.0); HEMATOCRIT 36.5 % (42.0-52.0); HEMOGLOBIN 11.9 g/dl (14.0-18.0); LYMPHOCYTES # 1.5 10^3/ul (0.8-2.9); LYMPHOCYTES % 15.4 % (15.0-51.0); MEAN CORPUSCULAR HEMOGLOBIN 33.1 pg (29.0-33.0); MEAN CORPUSCULAR HGB CONC 32.6 g/dl (32.0-37.0); MEAN CORPUSCULAR VOLUME 101.7 fl (82.0-101.0); MEAN PLATELET VOLUME 11.3 fl (7.4-10.4); MONOCYTE # 0.8 10^3/ul (0.3-0.9); MONOCYTES % 8.2 % (0.0-11.0); NEUTROPHILS % 72.9 % (39.0-77.0); PLATELET COUNT 160 10^3/UL (140-415); RED BLOOD COUNT 3.59 10^6/ul (4.70-6.10); RED CELL DISTRIBUTION WIDTH 14.5 % (11.5-14.5); WHITE BLOOD COUNT 9.6 10^3/ul (4.8-10.8)
[2017-02-04] MEDS: SEVELAMER CARBONATE 0.8 GM PKT PO SCH (08:00)
[2017-02-04 08:08] LABS: ALBUMIN 3.8 g/dl (3.3-4.9); ALBUMIN/GLOBULIN RATIO 0.86; BILIRUBIN,INDIRECT 0.1 mg/dl (0-1.1); BILIRUBIN,TOTAL 0.1 mg/dl (0.2-1.3); CALCIUM 8.6 mg/dl (8.4-10.2); CHOL/HDL RATIO 5.4 RATIO; CREATININE 9.41 mg/dl (0.61-1.24); POTASSIUM 4.3 mmol/L (3.5-5.1); TOTAL PROTEIN 8.2 g/dl (6.1-8.1)
--- NOTE | 2017-02-04 08:15 | CONS ---
Date/Time of Note Date/Time of Note DATE: 02/04/17 TIME: 08:12 Assessment/Plan Assessment/Plan Problems: (1) End stage renal disease on dialysis Status: Acute Comment: HD well olesya.. to repeat today (2) Hypertension Status: Acute Comment: should come down w further UF (3) Diabetes Comment: diet controlled... no issue here (4) Altered level of consciousness Status: Acute Comment: is back to baseline... EEG (-) (5) Volume overload Status: Acute Comment: better w UF.. all trops are (-)... RA O2 sat now > 93%... for repeat HD w UF today Qualifiers: Hypervolemia type: unspecified Qualified Code: E87.70 - Hypervolemia, unspecified hypervolemia type Consultation Date/Type/Reason Admit Date/Time Feb 03, 2017 at 09:29 Initial Consult Date Type of Consultation: neph 24 HR Interval Summary Free Text/Dictation pt stable overnight... no sz... refusing any cardiac monitoring... no cp or sob... feels much better post dialysis yesterday Exam/Review of Systems Vital Signs Vitals Vital Signs Date Time Temp Pulse Resp B/P Pulse Ox O2 Delivery O2 Flow Rate FiO2 02/04/17 04:00 97.8 80 18 190/95 94 02/03/17 20:00 Nasal Cannula 2.0 Intake and Output 02/03/17 02/03/17 02/04/17 15:00 23:00 07:00 Intake Total 500 ml 450 ml Output Total 5000 ml Balance -4500 ml 450 ml Exam Constitutional: alert, oriented Psych: no complaints Head: normocephalic Neck: supple Respiratory: clear to auscultation Cardiovascular: regular rate and rhythm Gastrointestinal: nl liver, spleen, soft Extremities: other (fxn avf LUE) Results Result Diagram: 02/04/17 0643 02/03/17 0530 Results 24 hrs Laboratory Tests Test 02/03/17 11:24 02/03/17 19:46 02/04/17 06:43 Creatine Kinase 308 H 245 H Creatine Kinase Index 1.5 2.0 Creatinine Kinase MB (Mass) 4.63 H 5.00 H Troponin I 0.060 0.057 White Blood Count 9.6 Red Blood Count 3.59 L Hemoglobin 11.9 L Hematocrit 36.5 L Mean Corpuscular Volume 101.7 H Mean Corpuscular Hemoglobin 33.1 H Mean Corpuscular Hemoglobin Concent 32.6 Red Cell Distribution Width 14.5 Platelet Count 160 Mean Platelet Volume 11.3 H Neutrophils % 72.9 Lymphocytes % 15.4 Monocytes % 8.2 Eosinophils % 2.6 Basophils % 0.5 Nucleated Red Blood Cells % 0.0 Neutrophils # 7.0 Lymphocytes # 1.5 Monocytes # 0.8 Eosinophils # 0.3 Basophils # 0.1 Nucleated Red Blood Cells # 0.0 Medications Medications Current Medications Carvedilol (Coreg) 25 mg BID PO Last administered on 02/03/17 20:41; Admin Dose 25 MG; Start 02/03/17 at 21:00 Nifedipine (Procardia Xl) 60 mg DAILY PO ; Start 02/04/17 at 09:00 Ondansetron HCl (Zofran Inj) 4 mg Q6H PRN IV NAUSEA AND/OR VOMITING; Start at 11:00 Acetaminophen (Tylenol Tab) 650 mg Q6H PRN PO PAIN LEVEL 1-3 OR FEVER; Start 02/03/17 at 11:00 Acetaminophen/ Hydrocodone Bitart ([place] (5/325)) 1 tab Q6H PRN PO PAIN LEVEL 4 -6 Last administered on 02/03/17 18:34; Admin Dose 1 TAB; Start 02/03/17 at 11:00 Docusate Sodium (Colace) 100 mg Q12H PRN PO CONSTIPATION; Start 02/03/17 at 11 :00 Bisacodyl (Dulcolax) 5 mg DAILY PRN PO CONSTIPATION; Start 02/03/17 at 11:00 Pantoprazole (Protonix Tab) 40 mg DAILY@06 PO Last administered on 02/04/17 06:19; Admin Dose 40 MG; Start 02/04/17 at 06:00 Heparin Sodium (Porcine) (Heparin (5000 Units/0.5 ml)) 5,000 unit Q12 SC ; Start 02/03/17 at 21:00 Clonidine (Catapres) 0.1 mg Q4H PRN PO ELEVATED SYSTOLIC BP Last administered on 02/04/17 06:19; Admin Dose 0.1 MG; Start 02/03/17 at 21:30 BRENDEN VALE MD Feb 04, 2017 08:15
--- NOTE | 2017-02-04 08:27 | RADRPT ---
PROCEDURE: XR Chest. CLINICAL INDICATION: Shortness of breath TECHNIQUE: Single frontal view of the chest was obtained COMPARISON: CR CHEST 08/05/2016 FINDINGS: The heart and mediastinum are within normal limits. There is a left perihilar and left lower lobe infiltrate. There is no pleural effusion or pneumothorax. RPTAT: AA IMPRESSION: Left perihilar and left lower lobe infiltrate. .Louis Oliveira MD, MD Date Time Electronically viewed and signed by .Louis Oliveira MD, on 02/04/2017 08:27 .S/
[2017-02-04 08:33] LABS: THYROID STIMULATING HORMONE 3.17 MIU/L (0.465-4.680)
[2017-02-04] MEDS: HEPARIN 5,000 UNIT/0.5 ML VIAL SC SCH ×2 (08:35→21:00)
[2017-02-04] MEDS: NIFEdipine (XL) 60 MG TAB PO SCH (08:35)
[2017-02-04] MEDS: SEVELAMER 800 MG TAB PO SCH ×2 (12:05→17:55)
[2017-02-05] VITALS (9 sets, daily range): BP systolic 133–172; BP diastolic 49–78; PULSE 69–82; RESP 18–24
[2017-02-05] MEDS: PANTOPRAZOLE (EC) 40 MG TAB PO SCH (05:12)
[2017-02-05 05:17] LABS: BASOPHILS % 0.3 % (0.0-2.0); EOSINOPHILS # 0.2 10^3/ul (0.0-0.5); EOSINOPHILS % 2.6 % (0.0-7.0); HEMATOCRIT 36.8 % (42.0-52.0); HEMOGLOBIN 12.2 g/dl (14.0-18.0); LYMPHOCYTES # 1.4 10^3/ul (0.8-2.9); LYMPHOCYTES % 14.7 % (15.0-51.0); MEAN CORPUSCULAR HEMOGLOBIN 33.6 pg (29.0-33.0); MEAN CORPUSCULAR HGB CONC 33.2 g/dl (32.0-37.0); MEAN CORPUSCULAR VOLUME 101.4 fl (82.0-101.0); MEAN PLATELET VOLUME 11.3 fl (7.4-10.4); MONOCYTE # 0.8 10^3/ul (0.3-0.9); MONOCYTES % 8.1 % (0.0-11.0); NEUTROPHILS % 73.9 % (39.0-77.0); PLATELET COUNT 154 10^3/UL (140-415); RED BLOOD COUNT 3.63 10^6/ul (4.70-6.10); RED CELL DISTRIBUTION WIDTH 14.5 % (11.5-14.5); WHITE BLOOD COUNT 9.4 10^3/ul (4.8-10.8)
[2017-02-05 05:47] LABS: CALCIUM 7.9 mg/dl (8.4-10.2); CREATININE 9.42 mg/dl (0.61-1.24)
--- NOTE | 2017-02-05 06:38 | PQ ---
Date/Time of Note Date/Time of Note DATE: 02/05/17 TIME: 06:30 Physician Query Documentation Clarification Dear Dr. Vale, A review of the medical record found a need for documentation clarification. progress note - " Altered level of consciousness, acute ... backto baseline" AMS ( H & P) labs CK = 308 CKMB 5.0 ESRD , Hypervolemia EEG -IMPRESSION: Mildly abnormal study secondary to intermittent background slowing which could reflect presence of encephalopathy Please clarify a suspected etiology of AMS . To facilitate accurate and complete coding, please zachery ( x ) the suspected diagnosis that apply: ( ) Metabolic encephalopathy ( ) Hypoxic encephalopathy ( ) Toxic encephalopathy ( x ) Others ___hypoxia due to chf ( ) Unclear etiology Please provide your response by clicking edit document, making your choice ( x ), click ok/save and finally click sign. You may also document your response on your progress notes. Thank you for your time. With appreciation, Dylan Cervantes RN, BSN, CCS, CCDS Clinical Grounds Manager Health Information Management, CDI and Coding Services [phone] Room # 1525 - Coding [address]~ [address] DYLAN CERVANTES Feb 05, 2017 06:38 BRENDEN VALE MD Feb 05, 2017 15:39
[2017-02-05] MEDS: NIFEdipine (XL) 60 MG TAB PO SCH (09:00)
[2017-02-05] MEDS: HEPARIN 5,000 UNIT/0.5 ML VIAL SC SCH ×2 (09:00→21:00)
[2017-02-05] MEDS: SEVELAMER 800 MG TAB PO SCH ×3 (09:10→17:36)
--- NOTE | 2017-02-05 09:56 | RADRPT ---
Echocardiogram Report Patient Name: TONIA ZHONG Gender: Male Date: 1980 Study Date: 03-Feb-2017 Gate Tender: [facility] Location: [facility] Ref. Physician: BRENDEN VALE Quality: Adequate Procedures: Transthoracic echocardiogram with complete 2D, M-Mode, and doppler examination. Indications: Shortness of breath. 2D/M Mode Doppler Measurement Value Normal Ranges Measurement Value Normal Ranges LVIDd 2D 5.7 3.5 - 5.6 cm AV Peak Kofi 1.5 m/sec LVIDs 2D 4.1 2.1 - 4.1 cm AV Peak PG 8.0 mmHg FS 2D 28.3 % LVOT Peak Kofi 1.0 m/sec LVPWd 2D 1.3 0.6 - 1.1 cm LVOT Peak PG 4.0 mmHg IVSd 2D 1.3 0.6 - 1.1 cm MV E Peak Kofi 1.3 m/sec IVS/LVPW 2D 1.0 MV A Peak Kofi 0.9 m/sec AoR Diam 2D 3.2 2.0 - 3.7 cm MV E/A 1.5 LA/Ao 2D 1 0 - 1 MV Decel Time 173 msec EDV 2D 187.0 cm3 MV E/A 1.5 ESV 2D 68.9 cm3 TR Peak Kofi 3.3 m/sec LA Dimen 2D 4.7 2.3 - 4.0 cm TR Peak PG 43.0 mmHg RVSP 51.0 mmHg Findings Left Ventricle: Normal left ventricular cavity size. Mild concentric left ventricular hypertrophy. Moderate global left ventricular systolic dysfunction. Ejection fraction is visually estimated at 4045 %. Tissue Doppler/Mitral Doppler indices are consistent with restrictive physiology with markedly elevated left atrial pressure (Stage IIIIV diastolic dysfunction). There is global hypokinesis involving all segments of the left ventricle. Right Ventricle: Normal right ventricular size. Normal right ventricular systolic function. Left Atrium: There is moderate enlargement of left atrium. Right Atrium: The right atrium is normal in size. Mitral Valve: Mild mitral leaflet calcification. Mild mitral annular calcification. Trace mitral regurgitation. Aortic Valve: No significant aortic stenosis or insufficiency. Aortic sclerosis without stenosis. Trileaflet aortic valve. Trace aortic valve regurgitation. Tricuspid Valve: Normal appearance of the tricuspid valve. Right ventricular systolic pressure is consistent with moderate pulmonary hypertension. Estimated peak PA systolic pressure 51 mmHg. There is mild tricuspid regurgitation. Pulmonic Valve: Pulmonic valve not well visualized. There is trace pulmonic regurgitation. Pericardium: Normal pericardium with no significant pericardial effusion. Aorta: Normal aortic root. IVC: Dilated IVC with respiratory collapse consistent with elevated right atrial pressure. Conclusions 1.Normal left ventricular cavity size. Mild concentric left ventricular hypertrophy. Moderate global left ventricular systolic dysfunction. Ejection fraction is visually estimated at 40-45 %. Tissue Doppler/Mitral Doppler indices are consistent with restrictive physiology with markedly elevated left atrial pressure (Stage III-IV diastolic dysfunction). There is global hypokinesis involving all segments of the left ventricle. 2.Normal right ventricular size. Normal right ventricular systolic function. 3.There is moderate enlargement of left atrium. 4.Normal appearance of the tricuspid valve. Right ventricular systolic pressure is consistent with moderate pulmonary hypertension. Estimated peak PA systolic pressure 51 mmHg. There is mild tricuspid regurgitation. 5.Dilated IVC with respiratory collapse consistent with elevated right atrial pressure. 6.No Vegetation, masses, or thrombi seen. Electronically Signed By: Epifanio Yee 05-Feb-2017 09:55:38 -0700 Patient Name: TONIA ZHONG Study Date: 03-Feb-2017 [id number]
--- NOTE | 2017-02-05 11:51 | PN ---
Date/Time of Note Date/Time of Note DATE: 02/05/17 TIME: 11:40 Assessment/Plan VTE Prophylaxis VTE Prophylaxis Intervention: ambulation VTE Contraindication Reason: amputee Lines/Catheters IV [facility] [place] Assessment/Plan Chief Complaint/Hosp Course 1. End-stage renal disease on maintenance hemodialysis. He is scheduled for a hemodialysis treatment today. He is overall doing better. He says that he is less short of breath and feels better. 2. Altered level of consciousness has resolved. He is back to his baseline mental status. 3. Congestive heart failure and fluid overload. This has improved; however , he does have some left lung infiltrates and still has some pulmonary vascular congestion. Dialysis today should help to remove fluid. I doubt the infiltrates are pneumonia however will repeat an x-ray tomorrow. 4. Hypertension 5. Diabetes mellitus diet controlled 6. Right upper arm small open wound which is being tended to by wound care nurses. Problems: Subjective 24 Hr Interval Summary Free Text/Dictation He is awake and alert and feeling better today. He is scheduled for dialysis today at 12 noon. Constitutional: improved, no complaints Cardiovascular: no complaints Gastrointestinal: no complaints Genitourinary: no complaints Musculoskeletal: no complaints Neurologic: no complaints Exam/Review of Systems Vital Signs Vitals Vital Signs Date Time Temp Pulse Resp B/P Pulse Ox O2 Delivery O2 Flow Rate FiO2 02/05/17 02:20 98.2 72 18 138/78 97 02/04/17 17:45 Room Air 02/03/17 20:00 2.0 Intake and Output 02/04/17 02/04/17 02/05/17 15:00 23:00 07:00 Intake Total 1500 ml 920 ml Output Total 4500 ml Balance -3000 ml 920 ml Exam His right upper arm has an open wound where he had a previous AV fistula. He has a left leg below the knee amputation. Constitutional: alert, frail, oriented ENMT: nl external ears & nose, nl lips & teeth, nl nasal mucosa & septum Neck: non-tender, supple Respiratory: clear to auscultation, normal air movement Cardiovascular: regular rate and rhythm Gastrointestinal: soft Results Result Diagram: 02/05/17 0432 02/05/17 0432 Results 24 hrs Laboratory Tests Test 02/05/17 04:32 White Blood Count 9.4 Red Blood Count 3.63 L Hemoglobin 12.2 L Hematocrit 36.8 L Mean Corpuscular Volume 101.4 H Mean Corpuscular Hemoglobin 33.6 H Mean Corpuscular Hemoglobin Concent 33.2 Red Cell Distribution Width 14.5 Platelet Count 154 Mean Platelet Volume 11.3 H Neutrophils % 73.9 Lymphocytes % 14.7 L Monocytes % 8.1 Eosinophils % 2.6 Basophils % 0.3 Nucleated Red Blood Cells % 0.0 Neutrophils # 7.0 Lymphocytes # 1.4 Monocytes # 0.8 Eosinophils # 0.2 Basophils # 0.0 Nucleated Red Blood Cells # 0.0 Sodium Level 141 Potassium Level 5.0 Chloride Level 98 Carbon Dioxide Level 27 Anion Gap 21 H Blood Urea Nitrogen 49 H Creatinine 9.42 H Glucose Level 164 Calcium Level 7.9 L Total Bilirubin 0.0 L Direct Bilirubin 0.00 Indirect Bilirubin 0.0 Aspartate Amino Transf (AST/SGOT) 20 Alanine Aminotransferase (ALT/SGPT) 23 Alkaline Phosphatase 98 Total Protein 8.0 Albumin 4.0 Globulin 4.00 H Albumin/Globulin Ratio 1.00 Medications Medications Current Medications Carvedilol (Coreg) 25 mg BID PO Last administered on 02/04/17 21:16; Admin Dose 25 MG; Start 02/03/17 at 21:00 Nifedipine (Procardia Xl) 60 mg DAILY PO ; Start 02/04/17 at 09:00 Ondansetron HCl (Zofran Inj) 4 mg Q6H PRN IV NAUSEA AND/OR VOMITING; Start at 11:00 Acetaminophen (Tylenol Tab) 650 mg Q6H PRN PO PAIN LEVEL 1-3 OR FEVER; Start 02/03/17 at 11:00 Acetaminophen/ Hydrocodone Bitart ([place] (5/325)) 1 tab Q6H PRN PO PAIN LEVEL 4 -6 Last administered on 02/03/17 18:34; Admin Dose 1 TAB; Start 02/03/17 at 11:00 Docusate Sodium (Colace) 100 mg Q12H PRN PO CONSTIPATION; Start 02/03/17 at 11 :00 Bisacodyl (Dulcolax) 5 mg DAILY PRN PO CONSTIPATION; Start 02/03/17 at 11:00 Pantoprazole (Protonix Tab) 40 mg DAILY@06 PO Last administered on 02/05/17 05:12; Admin Dose 40 MG; Start 02/04/17 at 06:00 Heparin Sodium (Porcine) (Heparin (5000 Units/0.5 ml)) 5,000 unit Q12 SC ; Start 02/03/17 at 21:00 Clonidine (Catapres) 0.1 mg Q4H PRN PO ELEVATED SYSTOLIC BP Last administered on 02/04/17 06:19; Admin Dose 0.1 MG; Start 02/03/17 at 21:30 LINDSAY ROMERO MD Feb 05, 2017 11:50
[2017-02-06] MEDS: PANTOPRAZOLE (EC) 40 MG TAB PO SCH (05:58)
[2017-02-06] MEDS: SEVELAMER 800 MG TAB PO SCH (07:50)
[2017-02-06 07:57] VITALS: BP 130/61; RESP 18
--- NOTE | 2017-02-06 08:31 | RADRPT ---
PROCEDURE: XR Chest. CLINICAL INDICATION: Congestive heart failure . TECHNIQUE: Single frontal chest x-ray. COMPARISON: 02/04/2017 FINDINGS: Left perihilar and basilar infiltrates are unchanged. Remainder of the lungs are clear. .. Cardiome diastinal silhouette is stable.. The osseous structures are intact. IMPRESSION: Left perihilar and basilar infiltrates are unchanged.. RPTAT: QQ .Aramis Evans MD, MD Date Time Electronically viewed and signed by .Aramis Evans MD, on 02/06/2017 08:31 .L/
[2017-02-06] MEDS: HEPARIN 5,000 UNIT/0.5 ML VIAL SC SCH (09:00)
[2017-02-06] MEDS: NIFEdipine (XL) 60 MG TAB PO SCH (09:00)
--- NOTE | 2017-02-06 11:32 | DS ---
DATE OF ADMISSION: 02/03/2017 DATE OF DISCHARGE: 02/06/2017 REASON FOR ADMISSION: Altered mental status. HISTORY OF PRESENT ILLNESS: Please see my full dictated history and physical for details. Briefly, a 36-year-old gentleman with end-stage renal disease maintained on outpatient hemodialysis who last dialyzed on Friday, 2 days prior to admission, was admitted through the ER following a 91 1 call for altered mental status after the patient was found at home by his brother altered. HOSPITAL COURSE: The patient came to the ER. Initially he was noted to be quite hypoxemic in the f ield with O2 sat of 79%. He was given nasal oxygen and then ultimately face mask oxygen with a rapid recovery O2 sat 10 0% and on the chance he might have had a seizure, albeit there was no proof of that, he was loaded w ith Keppra. His examination in the emergency room was nonfocal and with recovery of his oxygenation his mental s tatus returned to normal. HOSPITAL COURSE: I saw the patient in the ER, he was febrile. Blood pressure was 150/65 and O2 sat uration was ouj144%. He was awake, alert and also had a nonfocal exam. He was urgently dialyzed with vigorous ultrafiltration with marked improvement in his oxygenation. Echocardiogram was obtained which revealed concentric LVH with some moderate global systolic dysfunc tion with EF of approximately 40% to 45%. There was a dilated IVC consistent with elevated right-si ded pressures. The patient ruled out for any myocardial injury, his white count remained normal throughout his stay and he also demonstrated no abnormalities in liver function test. He was dialyzed consecutively 3 days in a row with vigorous ultrafiltration with marked improvement such that at the time of discharge, his O2 sats were greater than 95% on room air, blood pressure wa s well controlled on his usual medications, mental status which recovered in the emergency room ronaldo ined normal. there was never any seizure activity noted in the hospital. Brain CT was negative. An EEG which was obtained did not reveal any epileptiform focus. He was thus discharged on his routine medications in markedly improved condition. DISCHARGE DIAGNOSES: 1. Altered mental status due to significant hypoxemia, the latter due to congestive heart failure, resolved. 2. Congestive heart failure due to fluid overload, treated with consecutive dialysis x3 with resolu tion. 3. Mild global systolic function as demonstrated on echocardiogram. 4. End-stage renal disease due to diabetes and hypertension, currently dialyzing 3 to 4 days a week at [facility]. 5. Diabetes mellitus, diet controlled. 6. Hypertension exacerbated by fluid overload, since resolved. 7. Peripheral vascular disease, status post left below-knee amputation many years ago. 8. SULFA ALLERGY. 9. Status post negative EEG this admission. DISPOSITION: Home. FOLLOWUP: Will be with Dr. Vale next week. CONDITION ON DISCHARGE: Stable and markedly improved. DISCHARGE MEDICATIONS: As per the medication reconciliation sheet. Dictated By: BRENDEN VALE MD, MM/GARCIA Conf#: [id number] DID#: [id number]
--- NOTE | 2017-02-06 18:26 | RADRPT ---
Vent Rate: 71 bpm RR Interval: 0 msec WY Interval: 208 msec QRS Duration: 184 msec QT Interval: 494 msec QTC Interval: 536 msec P-R-T Anderson: 45 - 0 - 62 degrees Normal sinus rhythm Right bundle branch block , plus right ventricular hypertrophy Minimal voltage criteria for LVH, may be normal variant Abnormal ECG Electronically Signed By: Daniel Mcfarland [id number]
--- NOTE | 2017-02-07 09:03 | PQ ---
Date/Time of Note Date/Time of Note DATE: 02/07/17 TIME: 08:58 Physician Query Documentation Clarification Dear , A review of the medical record found a need for documentation clarification. Discharge Summary - Congestive heart failure due to fluid overload, treated with consecutive dialysis x3 with resolution Echo = moderate global systolic dysfunction with EF of approximately 40% to 45% . There was a dilated IVC consistent with elevated right-sided pressures. Please clarify the acuity & type of CHF. To facilitate accurate and complete coding, please zachery ( x ) the suspected diagnosis that apply: ( ) Acute Systolic (Reduced EF) Heart Failure ( ICD10 I50.21 ) ( ) Acute Diastolic (Preserved EF) Heart Failure ( ICD10 I50.31 ) ( )Acute Combined Systolic & Diastolic Heart Failure ( ICD10 I50.41 ) ( ) Chronic Systolic (Reduced EF) Heart Failure ( ICD10 I50.22 ) ( ) Chronic Diastolic (Preserved EF) Heart Failure ( ICD10 I50.32 ) ( ) Chronic Combined Systolic & Diastolic Heart Failure ( ICD10 I50.42 ) ( ) Acute on Chronic Systolic (Reduced EF) Heart Failure ( ICD10 I50.23 ) ( )Acute on Chronic Diastolic (Preserved EF) Heart Failure ( ICD10 I50.33 ) ( ) Acute on Chronic Combined Systolic & Diastolic Heart Failure ( ICD10 I50.43 ) ( ) Other s Please provide your response by clicking edit document, making your choice ( x ), click ok/save and finally click sign. You may also document your response on your progress notes. Thank you for your time. Dylan Cervantes RN, BSN, CCS, CCDS, CDIP Clinical [employer] Health Information Management, CDI and Coding Services [phone] Room # 1525 - [address]~ [address] DYLAN CERVANTES Feb 07, 2017 09:03
== END 2017-02-06 12:22 | disposition home or self-care (01) | DRG 291 ==
LOC: E/R 05:25 → MS4 09:29 → OBSVTOIN 10:46 → MS1 02-04 17:15
PROVIDERS: ADMIT Internal Medicine; ATTEND Internal Medicine
PROC: 5A1D70Z Performance of Urinary Filtration, Intermittent, Less than 6 Hours Per Day (ICD-10-PCS; principal; 2017-02-03)
DX: I13.2 Hypertensive heart and chronic kidney disease with heart failure and with stage 5 chronic kidney disease, or end stage renal disease (principal); G93.41 Metabolic encephalopathy; N18.6 End stage renal disease; I50.21 Acute systolic (congestive) heart failure; I12.0 Hypertensive chronic kidney disease with stage 5 chronic kidney disease or end stage renal disease; E11.9 Type 2 diabetes mellitus without complications; Z91.19 Patient's noncompliance with other medical treatment and regimen; Z89.512 Acquired absence of left leg below knee; R07.9 Chest pain, unspecified
CPT/HCPCS: 36415; 36600; 70450; 71010; 80053; 80061; 80306; 82550; 82553; 82803; 82962; 83036; 84443; 84484; 85025; 85610; 85730; 90935; 93005; 93306; 95819; 96374; G0378; J1644; J1953

== ENCOUNTER 2017-04-17 04:39 | Emergency (ER) | payer MEDICARE, OTHER ==
[~2017-04-17] VITALS: Ht 170.2 cm; Wt 81.8 kg
[~2017-04-17 04:39] MED LIST changes: -LORA-444 PO
[2017-04-17 04:57] VITALS: Ht 170.2 cm; Wt 81.8 kg
[2017-04-17] MEDS ORDERED: SEVE800T7 PO (07:16)
[2017-04-17] MEDS ORDERED: CARV25TA97 PO (07:17)
[2017-04-17] MEDS ORDERED: NIFE60TA7 PO (07:18)
[2017-04-17 07:19] LABS: BASOPHILS % 0.2 % (0.0-2.0); EOSINOPHILS # 0.1 10^3/ul (0.0-0.5); EOSINOPHILS % 0.9 % (0.0-7.0); HEMATOCRIT 37.5 % (42.0-52.0); HEMOGLOBIN 12.9 g/dl (14.0-18.0); LYMPHOCYTES # 0.8 10^3/ul (0.8-2.9); LYMPHOCYTES % 7.6 % (15.0-51.0); MEAN CORPUSCULAR HEMOGLOBIN 33.8 pg (29.0-33.0); MEAN CORPUSCULAR HGB CONC 34.4 g/dl (32.0-37.0); MEAN CORPUSCULAR VOLUME 98.2 fl (82.0-101.0); MEAN PLATELET VOLUME 11.3 fl (7.4-10.4); MONOCYTE # 0.9 10^3/ul (0.3-0.9); MONOCYTES % 9.3 % (0.0-11.0); NEUTROPHILS % 81.5 % (39.0-77.0); PLATELET COUNT 140 10^3/UL (140-415); RED BLOOD COUNT 3.82 10^6/ul (4.70-6.10); RED CELL DISTRIBUTION WIDTH 14.5 % (11.5-14.5); WHITE BLOOD COUNT 9.8 10^3/ul (4.8-10.8)
[2017-04-17 07:38] LABS: ALBUMIN 4.3 g/dl (3.3-4.9); ALBUMIN/GLOBULIN RATIO 1.13; BILIRUBIN,INDIRECT 0.1 mg/dl (0-1.1); BILIRUBIN,TOTAL 0.1 mg/dl (0.2-1.3); CALCIUM 8.2 mg/dl (8.4-10.2); POTASSIUM 4.3 mmol/L (3.5-5.1); TOTAL PROTEIN 8.1 g/dl (6.1-8.1)
[2017-04-17 07:51] LABS: CREATININE 14.98 mg/dl (0.61-1.24)
--- NOTE | 2017-04-17 07:52 | ERD ---
ER Documentation Chief Complaint Chief Complaint Abd pain, nausea, diarrhea x3 days. Pt on dialysis MWF, anuric HPI This is a 36-year-old male who presents to the emergency room for evaluation of nausea, and watery diarrhea for the past 3 days. The patient states that every time he eats food he instantly has watery diarrhea. He denies any blood in the stool. He denies any fevers or chills associated with this. He has been taking Imodium without relief and came to the emergency room today for evaluation. The patient does state that he has end-stage renal disease and is on dialysis Friday, Friday and Friday. He states because of the holiday scheduling his last dialysis was April 13. He missed his dialysis yesterday ROS All systems reviewed and are negative except as per history of present illness. Medications Home Meds Reported Medications Nifedipine* (Nifedipine ER*) 60 Mg Tablet.sa, 60 MG PO BID, TAB.SA 04/17/17 Carvedilol* (Coreg*) 25 Mg Tablet, 25 MG PO BID, #60 TAB 04/17/17 Sevelamer Carbonate* (Renvela*) 800 Mg Tablet, 0.8 GM PO WITH MEALS, TAB 04/17/17 Discontinued Scripts Carvedilol* (Carvedilol*) 25 Mg Tablet, 25 MG PO BID for 30 Days, #60 TAB Prov:ULISES ALMEIDA MD 08/31/16 Nifedipine* (Nifedipine ER*) 60 Mg Tablet.sa, 60 MG PO DAILY for 30 Days, #30 TAB.SA Prov:ULISES ALMEIDA MD 08/31/16 Allergies Allergies: Coded Allergies: sulfamethoxazole (Verified Allergy, Unknown, SWELLING, 04/17/17) trimethoprim (Verified Allergy, Unknown, SWELLING, 04/17/17) PMhx/Soc History of Surgery: Yes (left BKA, lap juanis) Anesthesia Reaction: No Hx Neurological Disorder: Yes Hx Respiratory Disorders: Yes Hx Cardiac Disorders: Yes (HTN) Hx Psychiatric Problems: No Hx Miscellaneous Medical Probl: Yes (dialysis, ) Hx Alcohol Use: No Hx Substance Use: No Hx Tobacco Use: No Smoking Status: Former smoker Physical Exam Vitals Vital Signs Date Time Temp Pulse Resp B/P Pulse Ox O2 Delivery O2 Flow Rate FiO2 04/17/17 06:57 78 17 142/77 99 Room Air 04/17/17 04:57 98.6 84 18 138/88 100 Physical Exam INITIAL VITAL SIGNS: Reviewed by me GENERAL: The patient is well developed and appropriate for usual state of health in no apparent distress HEENT: Pupils equal, round, and reactive to light. EOMI. There is no scleral icterus. NECK: C-spine is soft and supple, there is no meningismus. There is no cervical lymphadenopathy. LUNGS: Clear to auscultation bilaterally. There are no rales, wheezes or rhonchi. HEART: Regular rate and rhythm, no murmurs, clicks, rubs or gallops. ABDOMEN: Soft, non-tender, non-distended. There are bowel sounds in all four quadrants. No rebound or guarding. EXTREMITIES: There is no peripheral cyanosis or edema. No focal swelling or erythema. NEUROLOGICAL: The patient moves all four extremities with 5/5 strength. Cranial nerves II - XII are intact. Normal gait. Alert and oriented SKIN: Fistula present there is no apparent rash or petechiae. HEME/LYMPHATIC: There is no evidence of excessive bruising or lymphedema. PSYCHIATRIC: The patient does not appear anxious or depressed. Result Diagram: 04/17/17 0656 04/17/17 0656 Results 24 hrs Laboratory Tests Test 04/17/17 06:56 White Blood Count 9.810^3/ul Red Blood Count 3.8210^6/ul Hemoglobin 12.9g/dl Hematocrit 37.5% Mean Corpuscular Volume 98.2fl Mean Corpuscular Hemoglobin 33.8pg Mean Corpuscular Hemoglobin Concent 34.4g/dl Red Cell Distribution Width 14.5% Platelet Count 06580^3/UL Mean Platelet Volume 11.3fl Neutrophils % 81.5% Lymphocytes % 7.6% Monocytes % 9.3% Eosinophils % 0.9% Basophils % 0.2% Nucleated Red Blood Cells % 0.0/100WBC Neutrophils # 8.010^3/ul Lymphocytes # 0.810^3/ul Monocytes # 0.910^3/ul Eosinophils # 0.110^3/ul Basophils # 0.010^3/ul Nucleated Red Blood Cells # 0.010^3/ul Sodium Level 139mmol/L Potassium Level 4.3mmol/L Chloride Level 94mmol/L Carbon Dioxide Level 23mmol/L Anion Gap 26 Blood Urea Nitrogen 84mg/dl Creatinine Pending Glucose Level 119mg/dl Calcium Level 8.2mg/dl Total Bilirubin 0.1mg/dl Direct Bilirubin 0.00mg/dl Indirect Bilirubin 0.1mg/dl Aspartate Amino Transf (AST/SGOT) 21IU/L Alanine Aminotransferase (ALT/SGPT) 37IU/L Alkaline Phosphatase 112IU/L Total Protein 8.1g/dl Albumin 4.3g/dl Globulin 3.80g/dl Albumin/Globulin Ratio 1.13 Lipase 196U/L Procedures/MDM This 36-year-old male presents to the ER for evaluation of diarrhea. When I evaluated this patient he was afebrile, hemodynamically stable and nontoxic appearing. This patient does have a history of end-stage renal disease I did obtain lab work to assess this patient's electrolytes. Suspicious potassium is 4.3 at this time. I advised him that he likely has a viral syndrome and that this diarrhea should be self-limiting. He does not have a leukocytosis, he is not on any oral antibiotics and my suspicion for C. difficile is low at this time. The patient stated that he wanted medication to help him and that Imodium was not helping. The patient will be given a prescription for Lomotil at this time with instructions to return to the ER if his diarrhea does not improve. He verbalized understanding and is okay to plan of care Departure Diagnosis: Primary Impression: Diarrhea Additional Impression: End stage renal failure on dialysis Condition: Stable KEVIN BILLINGSLEY DO Apr 17, 2017 07:52
[2017-04-17] MEDS ORDERED: DIPH1TAB PO (07:53)
[2017-04-17 08:06] VITALS: BP 139/74; PULSE 81; RESP 18; TEMP 98.7
== END 2017-04-17 09:42 | disposition home or self-care (01) ==
LOC: E/R 04:39
DX: R19.7 Diarrhea, unspecified (principal); N18.6 End stage renal disease; I12.0 Hypertensive chronic kidney disease with stage 5 chronic kidney disease or end stage renal disease; Z87.891 Personal history of nicotine dependence; Z99.2 Dependence on renal dialysis
CPT/HCPCS: 36415; 80053; 83690; 85025; 99283

== ENCOUNTER 2017-07-13 09:01 | Emergency (ER) | END 2017-07-13 12:14 | disposition home or self-care (01) ==

== ENCOUNTER 2017-08-18 11:37 | Emergency (ER) | END 2017-08-18 14:02 | disposition home or self-care (01) ==